=== PATIENT | female | born 1945 | race Caucasian/White ===

== ENCOUNTER → 2017-05-06 | Outpatient (CLI) | payer OTHER ==
[~2017-05-06] MED LIST: CITA40TA4 PO; CLON0.5T3 PO; LAMO200T38 PO; ZNTT/150 PO
--- NOTE | 2017-05-06 16:02 | MAMMOGRAPHY REPORT ---
BILATERAL DIGITAL SCREENING MAMMOGRAM WITH CAD: 05/06/2017 CLINICAL HISTORY: Routine screening. Patient has no complaints. TECHNIQUE: Current study was also evaluated with a Computer Aided Detection (CAD) system. Bilateral CC and MLO views were obtained. COMPARISON: Comparison is made to exams dated: 05/02/2016 mammogram, 04/30/2015 mammogram, 04/27/2014 m ammogram, 04/25/2013 mammogram, 04/23/2012 mammogram, and 04/22/2011 mammogram - [facility] nter. BREAST COMPOSITION: There are scattered areas of fibroglandular density in both breasts. FINDINGS: No suspicious masses, calcifications, or areas of architectural distortion are noted in ei ther breast. There has been no significant interval change compared to prior exams. Scattered bilate ral benign-appearing calcifications are not significantly changed. A biopsy marker clip is again not ed in the left anterior breast. IMPRESSION: ACR BI-RADS CATEGORY 2: BENIGN There is no mammographic evidence of malignancy. A 1 year screening mammogram is recommended. The pa tient will receive written notification of the results. Approximately 10% of breast cancers are not detected with mammography. A negative mammographic report should not delay biopsy if a clinically suggestive mass is present. Nely Bird M.D. ah/:05/06/2017 15:14:05 Production Support Analyst: Nuzhat JUAREZ(Olive)(Aubrey)(BD), [facility] letter sent: Normal 1/2 BI-RADS Code: ACR BI-RADS Category 2: Benign
== END | disposition home or self-care (01) ==
LOC: C.MAMM 11:17
PROVIDERS: ATTEND Family Medicine
DX: Z12.31 Encounter for screening mammogram for malignant neoplasm of breast (principal)

== ENCOUNTER 2017-09-03 19:11 | Emergency (ER) | payer OTHER ==
[~2017-09-03] VITALS: Ht 170.2 cm; Wt 78.8 kg
[~2017-09-03 19:11] MED LIST changes: +LAMO200T35 PO; -LAMO200T38 PO
[2017-09-03 19:15] VITALS: TEMP 36.6; Ht 170.2 cm; Wt 78.8 kg
[2017-09-03] MEDS ORDERED: SODIUM CHLORIDE 0.9% 1000ML 1,000 ML IV STA (19:34)
[2017-09-03] MEDS ORDERED: DiphenhydrAMINE HCL 50 MG/ML VIAL IV STA (19:34)
[2017-09-03] MEDS ORDERED: METOCLOPRAMIDE HCL INJ 5 MG/ML 2 ML VIAL IV STA (19:34)
[2017-09-03 19:40] VITALS: O2SAT 96
--- NOTE | 2017-09-03 19:54 | DIAGNOSTIC IMAGING REPORT ---
CHEST ONE VIEW PORTABLE HISTORY: Atypical CHEST PAIN COMPARISON: Chest 08/02/2016. FINDINGS: Mild elevation the left hemidiaphragm. The lungs are clear. The heart is normal in size. No pleural effusions. No pneumothorax. Lumbar spinal fusion hardware is again noted. IMPRESSION: No acute processes within the chest. Mild elevation of the left hemidiaphragm. Electronically signed by: Gutierrez Anderson M.D. 09/03/2017 7:53 PM Dictated Date/Time: 09/03/2017 7:52 PM
[2017-09-03 19:56] LABS: COMPLETE YES; HEMATOCRIT 42.3 % (37-47); LYMPH % 33.3 %; LYMPH ABS # 2.05 K/uL (1.2-3.4); MEAN CELL VOLUME 96.4 fL (80-100); MEAN CORPUSCULAR HEMOGLOBIN 32.1 pg (25-34); MEAN CORPUSCULAR HGB CONC 33.3 g/dl (32-36); MEAN PLATELET VOLUME 9.5 fL (7.4-10.4); MONO % 5.7 %; PLATELET COUNT 207 K/uL (130-400); RED BLOOD COUNT 4.39 M/uL (4.2-5.4); WHITE BLOOD COUNT 6.16 K/uL (4.8-10.8)
--- NOTE | 2017-09-03 20:04 | EMERGENCY ROOM VISIT NOTE ---
History Report prepared by Claudia: Deirdre Tinajero Under the Supervision of: Dr. Chadd Ponce M.D. First contact with patient: 19:20 Chief Complaint: STROKE SYMPTOMS Stated Complaint: HEADACHE,NUMB FACE History of Present Illness The patient is a 72 year old female who presents to the Emergency Room with complaints of intermittent headaches starting 2 weeks ago. The headache started gradually and has been coming and going. Over the past week, it has been more persistent. She had some relief yesterday with Tylenol, but today Tylenol has not been helping. She also has some numbness in her face. She spoke with her doctor today and was sent to the ED for the facial numbness. The patient has had headaches in the past, but she does not have a diagnosis of migraines. She reports being sensitive to light, sound, and touch. She did not have any blurry vision today, but she has had some blurry vision before. She denies any nausea, vomiting, weakness, trouble walking, neck pain, abdominal pain, fever, cough, congestion, urinary symptoms, or diarrhea. She is not on any blood thinners. Source of History: patient Onset: 2 weeks ago Position: head Quality: ache Timing: intermittent Modifying Factors (Relieving): tylenol Associated Symptoms: + numbness, No fevers, No cough, No neck pain, No nausea, No vomiting, No abdominal pain, No diarrhea, No urinary symptoms, No weakness Note: Pt reports sensitivity to light, sound, and touch. Pt denies trouble walking, congestion. Review of Systems See HPI for pertinent positives and negatives. A total of ten systems were reviewed and were otherwise negative. Past Medical & Surgical Medical Problems: (1) Anxiety (2) Cerda esophagus (3) Depression (4) GERD (gastroesophageal reflux disease) (5) h/o gastroparesis (6) h/o H pylori infection (7) Intractable low back pain (8) Lumbar stenosis with neurogenic claudication (9) PE (pulmonary embolism) (10) Seizure Surgical Problems: (1) H/O Back Surgery (2) H/O esophagogastroduodenoscopy (3) H/O vein stripping (4) H/O: hysterectomy Family History Cancer MOTHER (Liver, Lung) SISTER (Breast) BROTHER (Eye Ca) SISTER (Ovarian) Hypertension Hypertrophic cardiomyopathy SISTER Social History Smoking Status: Never Smoker Alcohol Use: none Drug Use: none Marital Status: Housing Status: lives with significant other Occupation Status: retired Current/Historical Medications Scheduled Citalopram (Citalopram Hydrobromide), 20 MG PO QAM Cyanocobalamin (Vitamin B12), 1,000 MCG PO QAM Lactobacillus (Probiotic), 1 CAP PO HS Lamotrigine (Lamictal), 300 MG PO BID Multivitamin (Multivitamin), 1 TAB PO QAM Ranitidine (Zantac), 150 MG PO BID Scheduled PRN Clonazepam (Klonopin), 0.5 MG PO TID PRN for Anxiety/Agitation Allergies Coded Allergies: Sulfa Antibiotics (Verified Allergy, Intermediate, HIVES, 09/03/17) Phenazopyridine (Verified Allergy, Unknown, pruritis, 09/03/17) per gmg. Domperidone (Verified Adverse Reaction, Mild, OFF BALANCE, 09/03/17) Metoclopramide (Verified Adverse Reaction, Mild, OFF BALANCE, 09/03/17) Physical Exam Vital Signs Date Time Temp Pulse Resp B/P (MAP) Pulse Ox O2 Delivery O2 Flow Rate FiO2 09/03/17 23:02 60 18 133/84 98 09/03/17 21:05 57 18 141/79 97 Room Air 09/03/17 20:00 70 18 159/88 96 Room Air 09/03/17 19:40 96 Room Air 09/03/17 19:30 80 09/03/17 19:15 36.6 64 18 175/90 97 Room Air Physical Exam GENERAL: Awake, alert, uncomfortable-appearing, in no acute distress HENT: Normocephalic, atraumatic. Dry mucous membranes. EYES: Normal conjunctiva. Sclera non-icteric. NECK: Supple. No nuchal rigidity. FROM. No JVD. RESPIRATORY: Clear to auscultation. CARDIAC: Regular rate, normal rhythm. Extremities warm and well perfused. Pulses equal. ABDOMEN: Soft, non-distended. No tenderness to palpation. No rebound or guarding. No masses. RECTAL: Deferred. MUSCULOSKELETAL: Chest examination reveals no tenderness. The back is symmetrical on inspection without obvious abnormality. There is no CVA tenderness to palpation. No joint edema. LOWER EXTREMITIES: Calves are equal size bilaterally and non-tender. No edema. No discoloration. NEURO: Normal sensorium. No sensory or motor deficits noted. Normal cerebellar function with [id number], alternating palms, [id number] SKIN: No rash or jaundice noted. Medical Decision & Procedures ER Provider Diagnostic Interpretation: Radiology results as stated below per my review and radiologist interpretation: CHEST ONE VIEW PORTABLE HISTORY: Atypical CHEST PAIN COMPARISON: Chest 08/02/2016. FINDINGS: Mild elevation the left hemidiaphragm. The lungs are clear. The heart is normal in size. No pleural effusions. No pneumothorax. Lumbar spinal fusion hardware is again noted. IMPRESSION: No acute processes within the chest. Mild elevation of the left hemidiaphragm. Electronically signed by: Gutierrez Anderson M.D. 09/03/2017 7:53 PM Dictated Date/Time: 09/03/2017 7:[address]AST CT DOSE: 687.98 mGy.cm HISTORY: Headache. TECHNIQUE: Multiaxial CT images of the head were performed without the use of intravenous contrast. Automated exposure control was utilized for this study. A dose lowering technique was utilized adhering to the principles of ALARA. Comparison: Head CT 08/08/2015. Findings: The paranasal sinuses and mastoid air cells are clear. The calvarium and skull base are intact. There is no mass, hematoma, midline shift, acute infarct. White matter hypodensity is nonspecific but suggestive of microvascular ischemic change. The ventricles and sulci demonstrate mild age-related involutional changes. Impression: No significant change compared to the prior study. No acute intracranial abnormality. Electronically signed by: Gutierrez Anderson M.D. 09/03/2017 8:36 PM Dictated Date/Time: 09/03/2017 8:32 PM Laboratory Results 09/03/17 19:40 Red Blood Count 4.39, Mean Corpuscular Volume 96.4, Mean Corpuscular Hemoglobin 32.1, Mean Corpuscular Hemoglobin Concent 33.3, Mean Platelet Volume 9.5, Neutrophils (%) (Auto) 61.0, Lymphocytes (%) (Auto) 33.3, Monocytes (%) (Auto) 5.7, Eosinophils (%) (Auto) 0.0, Basophils (%) (Auto) 0.0, Neutrophils # (Auto) 3.76, Lymphocytes # (Auto) 2.05, Monocytes # (Auto) 0.35, Eosinophils # (Auto) 0.00, Basophils # (Auto) 0.00 09/03/17 19:40 Test 09/03/17 19:40 09/03/17 22:20 White Blood Count 6.16 K/uL (4.8-10.8) Red Blood Count 4.39 M/uL (4.2-5.4) Hemoglobin 14.1 g/dL (12.0-16.0) Hematocrit 42.3 % (37-47) Mean Corpuscular Volume 96.4 fL (80-100) Mean Corpuscular Hemoglobin 32.1 pg (25-34) Mean Corpuscular Hemoglobin Concent 33.3 g/dl (32-36) Platelet Count 207 K/uL (130-400) Mean Platelet Volume 9.5 fL (7.4-10.4) Neutrophils (%) (Auto) 61.0 % Lymphocytes (%) (Auto) 33.3 % Monocytes (%) (Auto) 5.7 % Eosinophils (%) (Auto) 0.0 % Basophils (%) (Auto) 0.0 % Neutrophils # (Auto) 3.76 K/uL (1.4-6.5) Lymphocytes # (Auto) 2.05 K/uL (1.2-3.4) Monocytes # (Auto) 0.35 K/uL (0.11-0.59) Eosinophils # (Auto) 0.00 K/uL (0-0.5) Basophils # (Auto) 0.00 K/uL (0-0.2) RDW Standard Deviation 46.4 fL (36.4-46.3) RDW Coefficient of Variation 13.3 % (11.5-14.5) Immature Granulocyte % (Auto) 0.0 % Immature Granulocyte # (Auto) 0.00 K/uL (0.00-0.02) Anion Gap 4.0 mmol/L (3-11) Est Creatinine Clear Calc Drug Dose 64.1 ml/min Estimated GFR () 77.7 Estimated GFR (Non- 67.0 BUN/Creatinine Ratio 17.1 (10-20) Calcium Level 9.9 mg/dl (8.5-10.1) Total Bilirubin 0.4 mg/dl (0.2-1) Direct Bilirubin < 0.1 mg/dl (0-0.2) Aspartate Amino Transf (AST/SGOT) 13 U/L (15-37) Alanine Aminotransferase (ALT/SGPT) 21 U/L (12-78) Alkaline Phosphatase 76 U/L (45-117) Troponin I < 0.015 ng/ml (0-0.045) Total Protein 7.8 gm/dl (6.4-8.2) Albumin 4.1 gm/dl (3.4-5.0) Lipase 91 U/L (73-393) Urine Color YELLOW Urine Appearance CLEAR (CLEAR) Urine pH 6.5 (4.5-7.5) Urine Specific [place] 1.008 (1.000-1.030) Urine Protein NEG (NEG) Urine Glucose (UA) NEG (NEG) Urine Ketones NEG (NEG) Urine Occult Blood NEG (NEG) Urine Nitrite NEG (NEG) Urine Bilirubin NEG (NEG) Urine Urobilinogen NEG (NEG) Urine Leukocyte Esterase TRACE (NEG) Urine WBC (Auto) 1-5 /hpf (0-5) Urine RBC (Auto) 0-4 /hpf (0-4) Urine Hyaline Casts (Auto) 0 /lpf (0-5) Urine Epithelial Cells (Auto) 5-10 /lpf (0-5) Urine Bacteria (Auto) NEG (NEG) Laboratory results reviewed by me Medications Administered Medications (Trade) Dose Ordered Sig/Geovanny Route Start Time Stop Time Status Last Admin Dose Admin Sodium Chloride 1,000 ml @ 999 mls/hr Q1H1M STAT IV 09/03/17 19:34 09/03/17 20:34 DC 09/03/17 19:58 999 MLS/HR Metoclopramide HCl (Reglan Inj) 10 mg NOW STAT IV 09/03/17 19:34 09/03/17 19:39 DC 09/03/17 19:58 10 MG Diphenhydramine HCl (Benadryl Inj) 25 mg NOW STAT IV 09/03/17 19:34 09/03/17 19:39 DC 09/03/17 19:52 25 MG Dexamethasone Sodium Phosphate (Dexamethasone Inj Pf) 10 mg NOW ONCE IV 09/03/17 21:30 09/03/17 21:31 DC 09/03/17 22:16 10 MG ECG Indication: other Rate (beats per minute): 55 Rhythm: sinus bradycardia Findings: no acute ischemic change, other (normal axis) ED Course 1932: The patient was evaluated in room A4B. A complete history and physical exam was performed. 2207: I reevaluated the patient. She is feeling better. Discussed results and discharge instructions: She verbalized understanding and agreement. The patient is ready for discharge. Medical Decision I reviewed the patient's past medical history, medications, and the nursing notes as described above. Differential diagnosis: migraine headache, tension headache, ICH, dehydration, electrolyte abnormality, UTI, pneumonia. The patient is a 72-year-old woman with a past medical history of recurrent headaches believed to be migraines presenting to department with intermittent migraine today per history of present illness. I'll the patient is uncomfortable appearing but in no acute distress, afebrile stable vital signs. She is neurologically intact including normal cerebellar function with finger-to -nose, alternating palms, [id number]. Labs unremarkable. CXR negative. CT head negative. Patient given migraine cocktail with significant improvement in her symptoms are still residual headache. Patient was additionally given a dose of dexamethasone for additional migraine relief. Patient has a neurology appointment for September 23 for recurrent headaches. Findings and plan for follow-up reviewed with patient. Patient agreeable and d/c'd per discharge instructions. Medication Reconcilliation Current Medication List: was personally reviewed by me Blood Pressure Screening Patient's blood pressure: Elevated blood pressure Blood pressure disposition: Elevated BP felt to be situational Impression Primary Impression: Migraine headache Scribe Attestation The scribe's documentation has been prepared under my direction and personally reviewed by me in its entirety. I confirm that the note above accurately reflects all work, treatment, procedures, and medical decision making performed by me. Departure Information Dispostion Home / Self-Care Referrals No Doctor, Assigned (PCP) Patient Instructions ED Headache Migraine, My [facility] Additional Instructions Please follow up with your primary care physician in the next 1-3 days as well as with your neurologist as scheduled for re-evaluation. Your symptoms are most likely due to a migraine headache. Otherwise, your exam, EKG, chest xray, CT scan of your head, and lab results did not show signs of an emergent condition at this time. Drink plenty of fluids to ensure hydration. Acetaminophen or Ibuprofen for pain as needed. Return to the emergency department for worsening symptoms as described in the accompanying instructions.
[2017-09-03] MEDS ORDERED: CLX20 PO (20:06)
[2017-09-03] MEDS ORDERED: CYAN100020 PO (20:07)
[2017-09-03] MEDS ORDERED: MULT-506 PO (20:07)
[2017-09-03] MEDS ORDERED: LACT1CAP6 PO (20:07)
[2017-09-03 20:13] LABS: ALT/SGPT 21 U/L (12-78); AST/SGOT 13 U/L (15-37); BLOOD UREA NITROGEN 15 mg/dl (7-18); BUN/CREATININE RATIO 17.1 (10-20); CALCIUM 9.9 mg/dl (8.5-10.1); CARBON DIOXIDE 28 mmol/L (21-32); CHLORIDE 105 mmol/L (98-107); CREATININE 0.87 mg/dl (0.60-1.20); GLUCOSE 97 mg/dl (70-99); POTASSIUM 3.8 mmol/L (3.5-5.1); SODIUM 137 mmol/L (136-145)
[2017-09-03 20:18] LABS: ALKALINE PHOSPHATASE 76 U/L (45-117)
--- NOTE | 2017-09-03 20:37 | DIAGNOSTIC IMAGING REPORT ---
HEAD CT NONCONTRAST CT DOSE: 687.98 mGy.cm HISTORY: Headache. TECHNIQUE: Multiaxial CT images of the head were performed without the use of intravenous contrast. Automated exposure control was utilized for this study. A dose lowering technique was utilized adhering to the principles of ALARA. Comparison: Head CT 08/08/2015. Findings: The paranasal sinuses and mastoid air cells are clear. The calvarium and skull base are intact. There is no mass, hematoma, midline shift, acute infarct. White matter hypodensity is nonspecific but suggestive of microvascular ischemic change. The ventricles and sulci demonstrate mild age-related involutional changes. Impression: No significant change compared to the prior study. No acute intracranial abnormality. Electronically signed by: Gutierrez Anderson M.D. 09/03/2017 8:36 PM Dictated Date/Time: 09/03/2017 8:32 PM
[2017-09-03] MEDS ORDERED: DEXAMETHASONE **PF** INJ 10 MG/ML VIAL IV ONE (21:30)
[2017-09-03 22:36] LABS: URINE APPEARANCE CLEAR (CLEAR); URINE BILIRUBIN NEG (NEG); URINE COLOR YELLOW; URINE NITRITE NEG (NEG); URINE PH 6.5 (4.5-7.5); URINE SPECIFIC GRAVITY 1.008 (1.000-1.030); UROBILINOGEN NEG (NEG); ZZUR CULT IF INDIC CLEAN CATCH NO
[2017-09-03 22:37] LABS: MANUAL MICROSCOPIC REQUIRED? NO; REVIEW REQ? NO
[2017-09-03 23:02] VITALS: BP 133/84; PULSE 60; O2SAT 98
== END 2017-09-03 23:04 | disposition home or self-care (01) ==
LOC: C.EDB 19:12 → C.EDA 23:04
DX: G43.909 Migraine, unspecified, not intractable, without status migrainosus (principal); F41.9 Anxiety disorder, unspecified; F32.9 Major depressive disorder, single episode, unspecified; K21.9 Gastro-esophageal reflux disease without esophagitis; K31.84 Gastroparesis; M48.062 Spinal stenosis, lumbar region with neurogenic claudication; R56.9 Unspecified convulsions; Z86.711 Personal history of pulmonary embolism; Z80.0 Family history of malignant neoplasm of digestive organs; Z80.1 Family history of malignant neoplasm of trachea, bronchus and lung; Z80.3 Family history of malignant neoplasm of breast; Z80.8 Family history of malignant neoplasm of other organs or systems; Z80.41 Family history of malignant neoplasm of ovary; Z82.49 Family history of ischemic heart disease and other diseases of the circulatory system

== ENCOUNTER 2017-09-07 05:01 | Emergency (ER) | payer OTHER ==
[~2017-09-07] VITALS: Ht 170.2 cm; Wt 79.3 kg
[~2017-09-07 05:01] MED LIST changes: -CITA40TA4 PO; +CLX20 PO; +CYAN100020 PO; +LACT1CAP6 PO; +MULT-506 PO
[2017-09-07 05:04] VITALS: TEMP 36.3; Ht 170.2 cm; Wt 79.3 kg
[2017-09-07] MEDS ORDERED: METOCLOPRAMIDE HCL INJ 5 MG/ML 2 ML VIAL IV STA (05:16)
[2017-09-07] MEDS ORDERED: DiphenhydrAMINE HCL 50 MG/ML VIAL IV STA (05:16)
[2017-09-07] MEDS ORDERED: KETOROLAC TROMETHAMINE 30 MG/ML VIAL IV STA (05:16)
[2017-09-07] MEDS ORDERED: PRED10TA PO (05:31)
[2017-09-07 05:39] LABS: COMPLETE YES; HEMATOCRIT 41.2 % (37-47); IG% 0.1 %; LYMPH % 29.5 %; LYMPH ABS # 2.84 K/uL (1.2-3.4); MEAN CELL VOLUME 94.9 fL (80-100); MEAN CORPUSCULAR HEMOGLOBIN 32.3 pg (25-34); MEAN PLATELET VOLUME 9.7 fL (7.4-10.4); NEUT % 64.4 %; PLATELET COUNT 235 K/uL (130-400); RED BLOOD COUNT 4.34 M/uL (4.2-5.4); WHITE BLOOD COUNT 9.62 K/uL (4.8-10.8)
[2017-09-07 05:56] LABS: BUN/CREATININE RATIO 21.1 (10-20); CALCIUM 10.1 mg/dl (8.5-10.1); CREATININE 0.79 mg/dl (0.60-1.20); POTASSIUM 3.6 mmol/L (3.5-5.1)
[2017-09-07 06:01] VITALS: BP 130/80; PULSE 51; O2SAT 93
--- NOTE | 2017-09-07 06:02 | EMERGENCY ROOM VISIT NOTE ---
History First contact with patient: 05:16 Chief Complaint: HEADACHE Stated Complaint: MIGRAINE History of Present Illness The patient is a 72 year old female who presents to the Emergency Room with complaints of migraine for the past day described as throbbing, ranging in severity currently 8 out of 10 throughout the frontal region similar to prior. Nothing makes it better or worse. Headache was slow in onset. Patient's been under a lot of stress lately with her brother being sick. She states when she is stressed, this triggers for migraine. She has appointment on September [address] Nava which is her neurologist. She is currently on prednisone taper pack. She has had normal imaging in the brain in the past. Patient denies chest pain, dyspnea, fever, chills, vomiting, diarrhea, neck stiffness, sore throat, localized weakness, cold symptoms, vision problems. No other complaints for patient. Review of Systems See HPI for pertinent positives & negatives. A total of 10 systems reviewed and were otherwise negative. Past Medical/Surgical History Medical Problems: (1) Anxiety (2) Cerda esophagus (3) Depression (4) GERD (gastroesophageal reflux disease) (5) h/o gastroparesis (6) h/o H pylori infection (7) Intractable low back pain (8) Lumbar stenosis with neurogenic claudication (9) PE (pulmonary embolism) (10) Seizure Surgical Problems: (1) H/O Back Surgery (2) H/O esophagogastroduodenoscopy (3) H/O vein stripping (4) H/O: hysterectomy Family History Cancer MOTHER (Liver, Lung) SISTER (Breast) BROTHER (Eye Ca) SISTER (Ovarian) Hypertension Hypertrophic cardiomyopathy SISTER Social History Smoking Status: Never Smoker Alcohol Use: none Drug Use: none Marital Status: Housing Status: lives with significant other Occupation Status: retired Current/Historical Medications Scheduled Citalopram (Citalopram Hydrobromide), 20 MG PO QAM Cyanocobalamin (Vitamin B12), 1,000 MCG PO QAM Lactobacillus (Probiotic), 1 CAP PO HS Lamotrigine (Lamictal), 300 MG PO BID Multivitamin (Multivitamin), 1 TAB PO QAM Prednisone (Prednisone), 10 MG PO DIRECTED Ranitidine (Zantac), 150 MG PO BID Scheduled PRN Clonazepam (Klonopin), 0.5 MG PO TID PRN for Anxiety/Agitation Physical Exam Vital Signs Date Time Temp Pulse Resp B/P (MAP) Pulse Ox O2 Delivery O2 Flow Rate FiO2 09/07/17 05:04 36.3 64 20 159/82 97 Room Air Physical Exam VITALS: Vitals are noted on the nurse's note and reviewed by myself. Vital signs hypertensive GENERAL: Pleasant female who appears upset, in no acute distress, nondiaphoretic , well-developed well-nourished. SKIN: The skin was without rashes, erythema, edema, or bruising. There is no tenting of the skin. Capillary reflex less than 2 seconds. HEAD: Normocephalic atraumatic. EARS: External auditory canals clear, tympanic membranes pearly gonzales without erythema or effusion bilaterally. EYES: Pupils equal round and reactive to light and accommodation. Conjunctivae without injection, sclerae without icterus. Extraocular movements intact. NOSE: Patent, turbinates without inflammation or discharge. No sinus tenderness. MOUTH: Mucous membranes moist. Pharynx without erythema or exudate. Uvula midline. Airway patent. Tongue does not deviate. NECK: Supple without nuchal rigidity. No lymphadenopathy. No thyromegaly. Cervical spine is nontender. No JVD. HEART: Regular rate and rhythm LUNGS: Clear to auscultation bilaterally without wheezes, rales or rhonchi. No dullness to percussion. No retractions or accessory muscle use. ABDOMEN: Positive bowel sounds x 4. Normal tympanic percussion. Soft, nontender, without masses or organomegaly. Arrington sign negative. No guarding or rebound tenderness. MUSCULOSKELETAL: No muscle atrophy, erythema, or edema noted. NEURO: Patient was alert and oriented to person place and time. Normal sensation to light and sharp touch. No focal neurological deficits. Cranial nerves II through XII grossly intact. No pronator drift. Cerebellar exam intact. Medical Decision & Procedures Laboratory Results 09/07/17 05:30 Red Blood Count 4.34, Mean Corpuscular Volume 94.9, Mean Corpuscular Hemoglobin 32.3, Mean Corpuscular Hemoglobin Concent 34.0, Mean Platelet Volume 9.7, Neutrophils (%) (Auto) 64.4, Lymphocytes (%) (Auto) 29.5, Monocytes (%) (Auto) 6.0, Eosinophils (%) (Auto) 0.0, Basophils (%) (Auto) 0.0, Neutrophils # (Auto) 6.19, Lymphocytes # (Auto) 2.84, Monocytes # (Auto) 0.58, Eosinophils # (Auto) 0.00, Basophils # (Auto) 0.00 09/07/17 05:30 Test 09/07/17 05:30 White Blood Count 9.62 K/uL (4.8-10.8) Red Blood Count 4.34 M/uL (4.2-5.4) Hemoglobin 14.0 g/dL (12.0-16.0) Hematocrit 41.2 % (37-47) Mean Corpuscular Volume 94.9 fL (80-100) Mean Corpuscular Hemoglobin 32.3 pg (25-34) Mean Corpuscular Hemoglobin Concent 34.0 g/dl (32-36) Platelet Count 235 K/uL (130-400) Mean Platelet Volume 9.7 fL (7.4-10.4) Neutrophils (%) (Auto) 64.4 % Lymphocytes (%) (Auto) 29.5 % Monocytes (%) (Auto) 6.0 % Eosinophils (%) (Auto) 0.0 % Basophils (%) (Auto) 0.0 % Neutrophils # (Auto) 6.19 K/uL (1.4-6.5) Lymphocytes # (Auto) 2.84 K/uL (1.2-3.4) Monocytes # (Auto) 0.58 K/uL (0.11-0.59) Eosinophils # (Auto) 0.00 K/uL (0-0.5) Basophils # (Auto) 0.00 K/uL (0-0.2) RDW Standard Deviation 46.4 fL (36.4-46.3) RDW Coefficient of Variation 13.4 % (11.5-14.5) Immature Granulocyte % (Auto) 0.1 % Immature Granulocyte # (Auto) 0.01 K/uL (0.00-0.02) Anion Gap 7.0 mmol/L (3-11) Est Creatinine Clear Calc Drug Dose 70.8 ml/min Estimated GFR () 87.3 Estimated GFR (Non- 75.3 BUN/Creatinine Ratio 21.1 (10-20) Calcium Level 10.1 mg/dl (8.5-10.1) Medications Administered Medications (Trade) Dose Ordered Sig/Geovanny Route Start Time Stop Time Status Last Admin Dose Admin Ketorolac Tromethamine (Toradol Inj) 30 mg NOW STAT IV 09/07/17 05:16 09/07/17 05:17 DC 09/07/17 05:38 30 MG Diphenhydramine HCl (Benadryl Inj) 25 mg NOW STAT IV 09/07/17 05:16 09/07/17 05:17 DC 09/07/17 05:35 25 MG Metoclopramide HCl (Reglan Inj) 10 mg NOW STAT IV 09/07/17 05:16 09/07/17 05:17 DC 09/07/17 05:40 10 MG ED Course Prior records/ancillary studies reviewed. Additional history obtained from family Triage Nursing notes reviewed. The patient's history was concerning for headache. Differential diagnosis: Etiologies such as migraine headache, meningitis, sinusitis, CO exposure, ICH, SAH, infection, tumor, headache, sinus thrombosis, arterial dissection, as well as others were entertained. Physical examination findings: As above. Non-focal. ER treatment provided: Toradol, Reglan, Benadryl. Patient states she can take Reglan and took this the other day. On reassessment the patient felt better. Diagnostics interpreted by me: The labs revealed no leukocytosis. No worrisome electrolyte abnormality Imaging studies: [~ rep ct add3]] HEAD CT NONCONTRAST CT DOSE: 687.98 mGy.cm HISTORY: Headache. TECHNIQUE: Multiaxial CT images of the head were performed without the use of intravenous contrast. Automated exposure control was utilized for this study. A dose lowering technique was utilized adhering to the principles of ALARA. Comparison: Head CT 08/08/2015. Findings: The paranasal sinuses and mastoid air cells are clear. The calvarium and skull base are intact. There is no mass, hematoma, midline shift, acute infarct. White matter hypodensity is nonspecific but suggestive of microvascular ischemic change. The ventricles and sulci demonstrate mild age-related involutional changes. Impression: No significant change compared to the prior study. No acute intracranial abnormality. Electronically signed by: Gutierrez Anderson M.D. This appears to be consistent with migraine. Patient has a history of this and symptoms of similar. Patient is neurovascularly and neurologically intact. No signs of meningitis. Patient states when she is upset and stressed this triggers her migraines. Headache was slow in onset. Patient felt much better after being medicated as above. She is currently on a prednisone taper pack by the family care doctor. She is advised to rest, take medications as directed, and follow-up as scheduled with her neurologist or here in the ER sooner for headache, fevers, confusion, worsening signs or symptoms or as needed. By the evaluation outlined above emergent etiologies such as meningitis, sinusitis, CO exposure, ICH, SAH, infection, temporal arteritis, tumor, sinus thrombosis, arterial dissection, as well as others were deemed relatively unlikely. The pt informed about the findings as listed above. All questions were answered and pleased with the treatment. Return instructions were outlined and the patient was discharged in stable condition. Case reviewed by attending Referral: The patient was referred back to their primary care physician for follow-up in 2 to 3 days for a recheck of the current condition. The chart was completed utilizing [employer] Speech voice recognition software. Grammatical errors, random word insertions, pronoun errors, and incomplete sentences are an occassional consequence of this system due to software limitations, ambient noise, and hardware issues. Any formal questions or concerns about the content, text, or information contained within the body of this dictation should be directly addressed to the physician compliance assistant for clarification. Medical Decision As above Impression Primary Impression: Migraine Departure Information Dispostion Home / Self-Care Condition GOOD Referrals Adalberto Huynh M.D. (PCP) Patient Instructions My [facility] Additional Instructions DO NOT drive, drink alcohol, operate machinery, or perform dangerous activities today. You were given medications in the ER that can affect your ability to safely function or operate a vehicle. Rest today in a quiet, peaceful, dark environment and get a full 8-10 hrs of sleep tonight. Avoid loud noises, smoke/smoking, alcohol, bright lights, stress, or physical exertion today to minimize the chance the headache may return. Continue current medications. Ibuprofen(Motrin, Advil) may be used for fever or pain. Use 600mg every six hours as needed. Take with food. Avoid using more than 2400mg in a 24 hour period. Do not use 2400mg per day for more than three consecutive days without physician direction. Prolonged inappropriate use can lead to stomach upset or ulcers. (AND/OR) Acetaminophen(Tylenol) may be used for fever or pain. Use 1000mg every six hours as needed. Avoid using more than 3000mg in a 24 hour period. Return to the ER for passing out, worsening headache, vision problems, neck stiffness/pain, fevers, vomiting, worsening of your condition, or as needed. Follow up with your primary physician and/or a neurologist in 2-3 days for a recheck of your current condition. Problem Qualifiers Primary Impression: Migraine Migraine type: without aura Status migrainosus presence: without status migrainosus Intractability: not intractable Qualified Codes: G43.009 - Migraine without aura, not intractable, without status migrainosus
--- NOTE | 2017-09-07 06:15 | EMERGENCY ROOM VISIT NOTE ---
ED Visit Note First contact with patient: 05:16 I have personally evaluated and examined this patient. I agree with assessment and plan of Alciia Ho PA-C. Long history of migraine like headaches worsened recently by anxiety and having thought about side effects of her medications. Feeling better with treatment here. No evidence SAH/ICH nor meningitis by history/exam nor dissection risks.
== END 2017-09-07 06:17 | disposition home or self-care (01) ==
LOC: C.EDB 05:02
DX: G43.909 Migraine, unspecified, not intractable, without status migrainosus (principal); F41.9 Anxiety disorder, unspecified; F32.9 Major depressive disorder, single episode, unspecified; K21.9 Gastro-esophageal reflux disease without esophagitis; K31.84 Gastroparesis; M48.061 Spinal stenosis, lumbar region without neurogenic claudication; R56.9 Unspecified convulsions; Z80.0 Family history of malignant neoplasm of digestive organs; Z80.1 Family history of malignant neoplasm of trachea, bronchus and lung; Z80.3 Family history of malignant neoplasm of breast; Z80.8 Family history of malignant neoplasm of other organs or systems; Z80.41 Family history of malignant neoplasm of ovary; Z82.49 Family history of ischemic heart disease and other diseases of the circulatory system

== ENCOUNTER → 2018-05-07 | Outpatient (CLI) | payer OTHER ==
[~2018-05-07] MED LIST changes: -CLON0.5T3 PO; +KLN/5 PO; +PRED10TA PO; +RANI150T85 PO; -ZNTT/150 PO
--- NOTE | 2018-05-10 13:56 | MAMMOGRAPHY REPORT ---
BILATERAL DIGITAL SCREENING MAMMOGRAM TOMOSYNTHESIS WITH CAD: 05/07/2018 CLINICAL HISTORY: Routine screening. Patient has no complaints. TECHNIQUE: Breast tomosynthesis in addition to standard 2D mammography was performed. Current study w as also evaluated with a Computer Aided Detection (CAD) system. COMPARISON: Comparison is made to exams dated: 05/06/2017 mammogram, 05/02/2016 mammogram, 04/30/2015 m ammogram, 04/25/2013 mammogram, 04/23/2012 mammogram, and 04/18/2010 mammogram - [facility] nter. BREAST COMPOSITION: There are scattered areas of fibroglandular density in both breasts. FINDINGS: No suspicious masses, calcifications, or areas of architectural distortion are noted in either breast . There has been no significant interval change compared to prior exams. Bilateral asymmetries and s cattered bilateral benign-appearing calcifications are not significantly changed. A biopsy clip is a gain noted within the left anterior breast. IMPRESSION: ACR BI-RADS CATEGORY 2: BENIGN There is no mammographic evidence of malignancy. A 1 year screening mammogram is recommended.( 019) The patient will receive written notification of the results. Some breast cancers are not detected with mammography. A negative mammographic report should not michael y biopsy if a clinically suggestive mass is present. Nely Bird M.D. /:05/07/2018 15:52:43 Toddler Nanny: RT Carlee(Olive)(M), [facility] letter sent: Normal 1/2 BI-RADS Code: ACR BI-RADS Category 2: Benign
== END | disposition home or self-care (01) ==
LOC: C.MAMM 11:31
PROVIDERS: ATTEND Family Medicine
DX: Z12.31 Encounter for screening mammogram for malignant neoplasm of breast (principal)

== ENCOUNTER 2020-04-02 06:48 | Observation (INO) ==
[2020-04-02] MEDS ORDERED: NITROGLYCERIN SL 0.4 MG/TAB TAB SL STA (07:04)
--- NOTE | 2020-04-02 07:16 | XRay Report ---
XR chest 1V portable HISTORY: 74 years-old Female Chest Pain acute atypical chest pain COMPARISON: Chest radiographs 11/16/2019, chest CT 05/27/2019 TECHNIQUE: Portable AP view of the chest FINDINGS: Cardiomediastinal and hilar silhouettes are within normal limits. No pneumothorax, pleural effusion o r overt pulmonary edema. Unchanged mild left hemidiaphragm elevation with minimal left lung base opac ities suggestive of probable atelectasis. Bones appear grossly intact. Degenerative changes of the sh oulders and spine. Partially imaged lumbar spine fusion hardware. IMPRESSION: No acute process. ACT 112: Negative or not required by law. The above report was generated using voice recognition software. It may contain grammatical, syntax o r spelling errors. Electronically signed by: Nabeel Parsons M.D. 04/02/2020 7:15 AM
--- NOTE | 2020-04-02 07:24 | Emergency Department Note ---
History of Present Illness General Chief complaint: Chest Pain Stated complaint: CHEST PAIN Time Seen by Provider: 04/02/20 06:58 Source: patient, RN notes reviewed and old records reviewed Mode of arrival: ambulatory Limitations: no limitations History of Present Illness Provider complaint: chest pain Onset (ago): hour(s) 2 Location: chest Radiation: extremity Severity: severe Pain Consistency: + constant Maximum Pain Intensity: 9 Current Pain Intensity: 9 Quality: + burning Relieved By: + none Exacerbated By: + movement Associated symptoms: + denies other symptoms; no cough, no diaphoresis, no fever/chills, no nausea/vomiting and no shortness of breath Treatments prior to arrival: none This is a 74-year-old female who presents the emergency department complaining of left-sided chest pain that radiates into her left arm. The patient reports the pain has been ongoing for the past 2 hours she reports changing position or exertion does not make the pain better or worse. She reports that she has not taken anything for the pain. She reports that this pain is similar to when she had a pulmonary embolus approximately 5 years ago. The patient reports she is no longer on blood thinners. She describes the pain as a burning sensation. Home Medications Home Medications Medication Instructions Recorded Confirmed Type citalopram 20 mg PO QAM 05/31/18 04/02/20 History clonazepam 0.5 mg PO BID PRN 05/31/18 04/02/20 History gabapentin 100 mg PO HS 05/31/18 04/02/20 History lamotrigine 400 mg PO BID 05/31/18 04/02/20 History meclizine 12.5 mg PO Q6H PRN 05/31/18 04/02/20 History multivitamin [Multiple Vitamins] 1 tab PO QAM 05/31/18 04/02/20 History aspirin [Aspirin Low Dose] 81 mg PO QAM 05/27/19 04/02/20 History cyanocobalamin (vitamin B-12) 1,000 mcg PO QAM 05/27/19 04/02/20 History buspirone 5 mg PO BID 04/02/20 04/02/20 History pantoprazole 20 mg PO BID 04/02/20 04/02/20 History Allergies Allergy/AdvReac Type Severity Reaction Status Date / Time Sulfa (Sulfonamide Allergy Intermediate HIVES Verified 04/02/20 07:30 Antibiotics) phenazopyridine Allergy Unknown pruritis Verified 04/02/20 07:30 domperidone AdvReac Mild OFF BALANCE Verified 04/02/20 07:30 metoclopramide AdvReac Mild OFF BALANCE Verified 04/02/20 07:30 Past Med/Surg History Medical History Anxiety (Chronic) Cerda esophagus (Chronic) Depression (Chronic) GERD (gastroesophageal reflux disease) (Chronic) Low back strain (Acute) Lumbar stenosis with neurogenic claudication PE (pulmonary embolism) (Resolved) "bilateral 2012, treated with Coumadin in past" Seizure (Chronic) On Lamictal"NO SEIZURES FOR YEARS AND YEARS" Temporomandibular joint disorder CLICKS BILAT Surgical History H/O colonoscopy H/O esophagogastroduodenoscopy (Chronic) H/O vein stripping (Chronic) History of hysterectomy TOTAL S/P cholecystectomy Family History Other Heart disease Ovarian cancer Social History Smoking Status: Never smoker Second Hand Exposure: No; Do You Dip or Chew Tobacco: No; Tobacco Cessation Education Requested by Patient: No Hx Alcohol Use: No Hx Substance Use: No Preferred Language: Maori Communication Ability: Effective Health Program Analyst Required: No Beliefs That Will Affect Care: None Current Living Situation: Spouse Other Information That Helps Us Care for You: No Feels Safe at Home: Yes Safety Concerns: Feels Safe At This Time Review of Systems A total of 10 systems reviewed and were otherwise negative Physical Exam Vital Signs Vital Signs - 24 hr 04/02/20 06:52 04/02/20 07:04 04/02/20 07:36 Temperature 37.0 C Temperature Source Oral Pulse Rate 82 Pulse Rate [Right Finger] Respiratory Rate 22 Respiratory Effort / Characteristics Non-Labored Spontaneous Respiratory Depth Normal Respiratory Pattern Regular Blood Pressure 162/80 H Blood Pressure [Left Arm] Blood Pressure Mean 107 Blood Pressure Mean [Left Arm] Blood Pressure Position Sitting Blood Pressure Position [Left Arm] Pulse Oximetry 91 94 93 Oxygen Delivery Method Room Air Room Air Room Air Oxygen Flow Rate Sepsis Recent Fever Within 48 Hours No Sepsis New/Unexplained Change in Mental Status No Sepsis Action Taken by Nursing No Action Required 04/02/20 07:58 04/02/20 08:00 04/02/20 08:47 Temperature Temperature Source Pulse Rate Pulse Rate [Right Finger] 62 Respiratory Rate 22 20 Respiratory Effort / Characteristics Non-Labored Spontaneous Non-Labored Spontaneous Respiratory Depth Normal Normal Respiratory Pattern Regular Blood Pressure Blood Pressure [Left Arm] 119/62 Blood Pressure Mean Blood Pressure Mean [Left Arm] 81 Blood Pressure Position Blood Pressure Position [Left Arm] Sitting Pulse Oximetry 88 L 96 96 Oxygen Delivery Method Room Air Nasal Cannula Nasal Cannula Oxygen Flow Rate 2 2 Sepsis Recent Fever Within 48 Hours Sepsis New/Unexplained Change in Mental Status Sepsis Action Taken by Nursing VITAL SIGNS - Vital signs and nursing notes were reviewed. GENERAL - 74-year-old female appearing stated age who is in no acute distress. Communicates well with provider and answers questions appropriately. SKIN - Without rashes. HEAD - NC/AT. EYES - PERRL with EOMI bilaterally. Sclera anicteric. Palpebral conjunctiva pink and moist with no injection noted. EARS - No deformities of external structures noted on gross examination bilaterally. No pain elicited with palpation of the tragus bilaterally. External auditory canals without discharge or otorrhea. Tympanic membranes pearly gonzales without retraction or bulging. No fluid or purulent material visualized behind the TM. Handle of malleus, umbo, cone of light, pars tensa/flaccid all easily visualized. NOSE - Midline and without cyanosis. No epistaxis or purulent drainage noted. Septum midline without deviation or septal hematoma noted. MOUTH/OROPHARYNX - Without perioral cyanosis. Buccal mucosa pink and moist and without leukoplakia. Tongue midline with equal elevation of palate bilaterally. No tonsillar hypertrophy, erythema, or exudates noted. dentition noted. NECK - Neck with FROM. Supple to palpation. lymphadenopathy noted. No nuchal rigidity. LUNGS - Chest wall symmetric without accessory muscle use, intercostals retra ctions, or central cyanosis. Normal vesicular breath sounds CTA B/L. No wheezes, rales, or rhonchi appreciated. CARDIAC - RRR with S1/S2. No murmur, rubs, or gallops appreciated. ABDOMEN - Abdominal contour without pulsations or visible masses. BS normoactive all four quadrants. No tenderness, palpable masses, hepatosplenomegaly, or ascites noted. EXTREMITIES - No clubbing or peripheral cyanosis. No pretibial edema present. +3/5 radial, posterior tibial, and dorsalis pedis pulses palpated throughout. +5/5 strength noted in UE/LE bilaterally. NEUROLOGIC - Cranial nerves II through XII grossly intact. Sensory intact to light touch throughout. Patellar reflexes +2/4. PSYCH - A&Ox3 and cooperates fully with examiner. Pt is very pleasant and interacts well with examiner. Course Administered Medications Acetaminophen (Tylenol) 650 mg PO Q4H PRN PRN Reason: Pain or Fever Stop: 05/02/20 11:07 Last Admin: 04/02/20 22:10 Dose: 650 mg Documented by: [id number] Buspirone HCl (Buspar) 5 mg PO BID [facility] Stop: 05/02/20 11:59 Last Admin: 04/02/20 20:50 Dose: 5 mg Documented by: [id number] Admin: 04/02/20 12:48 Dose: 5 mg Documented by: [id number] Citalopram Hydrobromide (Celexa) 20 mg PO QAM [facility] Stop: 05/02/20 11:29 Last Admin: 04/02/20 12:48 Dose: 20 mg Documented by: [id number] Clonazepam (Klonopin) 0.5 mg PO BID PRN PRN Reason: Anxiety Stop: 05/02/20 11:21 Last Admin: 04/02/20 22:10 Dose: 0.5 mg Documented by: [id number] Gabapentin (Neurontin) 100 mg PO HS [facility] Stop: 05/02/20 20:59 Last Admin: 04/02/20 20:50 Dose: 100 mg Documented by: [id number] Heparin Sodium (Porcine) (Heparin Sodium (Porcine)) 5,000 units SQ Q8 [facility] Stop: 05/02/20 13:59 Last Admin: 04/03/20 05:16 Dose: Not Given Documented by: [id number] Admin: 04/02/20 20:52 Dose: 5,000 units Documented by: [id number] Cosigned by: [id number] Admin: 04/02/20 13:39 Dose: 5,000 units Documented by: [id number] Cosigned by: [id number] Lamotrigine (Lamictal) 400 mg PO BID [facility] Stop: 05/02/20 11:29 Last Admin: 04/02/20 20:51 Dose: 400 mg Documented by: [id number] Admin: 04/02/20 13:02 Dose: 400 mg Documented by: [id number] Pantoprazole Sodium (Protonix) 40 mg PO BID ÁNGEL Stop: 05/02/20 11:29 Last Admin: 04/02/20 20:51 Dose: 40 mg Documented by: [id number] Admin: 04/02/20 13:02 Dose: 40 mg Documented by: [id number] Discontinued Medications Albuterol (Ventolin Hfa) 2 puffs INH NOW ONE Stop: 04/02/20 07:59 Last Admin: 04/02/20 08:13 Dose: 2 puffs Documented by: [id number] Magnesium Sulfate/Dextrose (Magnesium Sulfate / D5w) 1 gm in 100 mls @ 100 mls/hr IV NOW STA Stop: 04/02/20 09:09 Last Infusion: 04/02/20 09:29 Dose: 0 mls/hr Documented by: [id number] Admin: 04/02/20 08:18 Dose: 100 mls/hr Documented by: [id number] Ioversol (Optiray 320 125ml) 120 ml IV ONCE PRN PRN Reason: Interaction Checking Stop: 04/06/20 08:36 Last Admin: 04/02/20 08:37 Dose: 120 ml Documented by: [id number] Methylprednisolone (Solumedrol) 60 mg IV NOW STA Stop: 04/02/20 09:02 Last Admin: 04/02/20 09:05 Dose: 60 mg Documented by: [id number] Nitroglycerin (Nitrostat) 0.4 mg SL NOW STA Stop: 04/02/20 07:05 Last Admin: 04/02/20 07:34 Dose: 0.4 mg Documented by: [id number] Nitroglycerin (Nitro-Bid 2%) 1 inch EXT NOW STA Stop: 04/02/20 07:46 Last Admin: 04/02/20 07:54 Dose: 1 inch Documented by: [id number] Medical Decision Making Differential Diagnosis Cardiac ischemia, aortic dissection, pulmonary embolism, pneumothorax, pneumonia, pericarditis, myocarditis, esophageal rupture, GERD, cholecystitis, pancreatitis, musculoskeletal, as well as other pathologies. Medical Records Attestation: I reviewed the patient's medical records. Home Medications Current Medication List: was personally reviewed by me Laboratory Data Attestation: I reviewed the patient's lab results. Result diagrams: 04/02/20 07:30 04/02/20 07:30 Lab Results 04/02/20 04/02/20 04/02/20 Range/Units 07:30 07:30 07:30 WBC 5.33 (4.8-10.8) K/uL RBC 4.06 L (4.2-5.4) M/uL Hgb 13.3 (12.0-16.0) g/dL POC Hgb (12.0-16.0) g/dl Hct 39.3 (37-47) % POC Hct (37-47) % MCV 96.8 (80-100) fL MCH 32.8 (25-34) pg MCHC 33.8 (32-36) g/dL RDW Std Deviation 48.0 H (36.4-46.3) fL RDW Coeff of Bill 13.5 (11.5-14.5) % Plt Count 185 (130-400) K/uL MPV 9.4 (7.4-10.4) fL Immature Gran % (Auto) 0.2 % Neut % (Auto) 61.2 % Lymph % (Auto) 31.7 % Ada % (Auto) 6.9 % Eos % (Auto) 0.0 % Baso % (Auto) 0.0 % Neut # (Auto) 3.26 (1.4-6.5) K/uL Lymph # (Auto) 1.69 (1.2-3.4) K/uL Ada # (Auto) 0.37 (0.11-0.59) K/uL Eos # (Auto) 0.00 (0-0.5) K/uL Baso # (Auto) 0.00 (0-0.2) K/uL Immature Gran # (Auto) 0.01 (0.00-0.02) K/uL PT 10.3 (9.0-12.0) Seconds INR 1.0 (0.9-1.1) APTT 24.5 (21.0-31.0) Seconds PTT Ratio 0.9 POC Sodium (135-144) mmol/L Sodium 141 (136-145) mmol/L POC Potassium (3.3-5.0) mmol/L Potassium 3.8 (3.5-5.1) mmol/L POC Chloride (101-112) mmol/L Chloride 108 H (98-107) mmol/L Carbon Dioxide 27 (21-32) mmol/L POC Total CO2 (24-31) mmol/L Anion Gap 6.0 (3-11) POC Anion Gap (16-25) mmol/L POC BUN (7-18) mg/dl BUN 16 (7-18) mg/dl Creatinine 0.95 (0.6-1.2) mg/dl POC Creatinine (0.6-1.3) mg/dl Est Cr Clr Drug Dosing 55.8 ml/min Est GFR ( Amer) 68.9 Est GFR (Non-Af Amer) 59.4 BUN/Creatinine Ratio 17.3 (10-20) Glucose 91 (70-99) mg/dl POC Glucose (other) (70-99) mg/dl Calcium 9.5 (8.5-10.1) mg/dl POC Ioniz Calcium May (1.12-1.32) mmol/l Total Bilirubin 0.5 (0.2-1) mg/dl AST 14 L (15-37) U/L ALT 26 (12-78) U/L Alkaline Phosphatase 59 (45-117) U/L Total Creatine Kinase 77 (26-192) U/L CK-MB (CK-2) 1.3 (0.5-3.6) ng/ml CK/CKMB % Calc 1.7 (0-3.0) Troponin I < 0.015 (0-0.045) ng/ml Total Protein 7.3 (6.4-8.2) gm/dl Albumin 3.7 (3.4-5.0) gm/dl Globulin 3.6 (2.5-4.0) gm/dl Albumin/Globulin Ratio 1.0 (0.9-2) Lipase 85 (73-393) U/L 04/02/20 04/02/20 Range/Units 07:36 08:25 WBC (4.8-10.8) K/uL RBC (4.2-5.4) M/uL Hgb (12.0-16.0) g/dL POC Hgb 12.9 (12.0-16.0) g/dl Hct (37-47) % POC Hct 38 (37-47) % MCV (80-100) fL MCH (25-34) pg MCHC (32-36) g/dL RDW Std Deviation (36.4-46.3) fL RDW Coeff of Bill (11.5-14.5) % Plt Count (130-400) K/uL MPV (7.4-10.4) fL Immature Gran % (Auto) % Neut % (Auto) % Lymph % (Auto) % Ada % (Auto) % Eos % (Auto) % Baso % (Auto) % Neut # (Auto) (1.4-6.5) K/uL Lymph # (Auto) (1.2-3.4) K/uL Ada # (Auto) (0.11-0.59) K/uL Eos # (Auto) (0-0.5) K/uL Baso # (Auto) (0-0.2) K/uL Immature Gran # (Auto) (0.00-0.02) K/uL PT (9.0-12.0) Seconds INR (0.9-1.1) APTT (21.0-31.0) Seconds PTT Ratio POC Sodium 141 (135-144) mmol/L Sodium (136-145) mmol/L POC Potassium 3.8 (3.3-5.0) mmol/L Potassium (3.5-5.1) mmol/L POC Chloride 105 (101-112) mmol/L Chloride (98-107) mmol/L Carbon Dioxide (21-32) mmol/L POC Total CO2 25 (24-31) mmol/L Anion Gap (3-11) POC Anion Gap 16.0 (16-25) mmol/L POC BUN 18 (7-18) mg/dl BUN (7-18) mg/dl Creatinine (0.6-1.2) mg/dl POC Creatinine 0.9 (0.6-1.3) mg/dl Est Cr Clr Drug Dosing ml/min Est GFR ( Amer) Est GFR (Non-Af Amer) BUN/Creatinine Ratio (10-20) Glucose (70-99) mg/dl POC Glucose (other) 96 (70-99) mg/dl Calcium (8.5-10.1) mg/dl POC Ioniz Calcium May 1.28 (1.12-1.32) mmol/l Total Bilirubin (0.2-1) mg/dl AST (15-37) U/L ALT (12-78) U/L Alkaline Phosphatase (45-117) U/L Total Creatine Kinase (26-192) U/L CK-MB (CK-2) (0.5-3.6) ng/ml CK/CKMB % Calc (0-3.0) Troponin I < 0.015 (0-0.045) ng/ml Total Protein (6.4-8.2) gm/dl Albumin (3.4-5.0) gm/dl Globulin (2.5-4.0) gm/dl Albumin/Globulin Ratio (0.9-2) Lipase (73-393) U/L Imaging Data Radiologist's Impression: [facility], [place] [phone] XRay Report Patient: KRISTI VILLALOBOS Admit Date: 04/02/20 MR#: [id number] Address1: [address] [place] [address] Acct ID:[id number] Address2: Date: 1945 [facility] Zip: [place] [address] Age: 74 Location: ED Sex: F Room/Bed: Att Phy: Diagnosis: CHEST PAIN Tahmina Phy: Adalberto Huynh MD Service Date: 04/02/20 [facility] Phy: Interpreting Phy: Krystian Parsons Admit Phy: Ordering Phy: Ross George MD cc: ~ XR chest 1V portable HISTORY: 74 years-old Female Chest Pain acute atypical chest pain COMPARISON: Chest radiographs 11/16/2019, chest CT 05/27/2019 TECHNIQUE: Portable AP view of the chest FINDINGS: Cardiomediastinal and hilar silhouettes are within normal limits. No pneumothorax, pleural effusion or overt pulmonary edema. Unchanged mild left hemidiaphragm elevation with minimal left lung base opacities suggestive of probable atelectasis. Bones appear grossly intact. Degenerative changes of the shoulders and spine. Partially imaged lumbar spine fusion hardware. IMPRESSION: No acute process. ACT 112: Negative or not required by law. The above report was generated using voice recognition software. It may contain grammatical, syntax or spelling errors. Electronically signed by: Nabeel Parsons M.D. 04/02/2020 7:15 AM Dictated: 07/20/20 0714 Transcribed: 04/02/20713 ECG Data Attestation: I personally reviewed and interpreted this ECG as follows: Indication: chest pain Rate (beats per minute): 63 Rhythm: normal sinus Findings: no ST depression and no ST elevation Comparison ECG Date: from (11/16/2019) Change: no significant change Additional Comments: Repeat EKG at 750 shows normal sinus rhythm normal EKG no ST elevation or depression QTC is 432 ventricular rate is 61. MDM Narrative Patient was seen and evaluated as above in room C8. Review was performed of nursing notes and vital signs. I did review pertinent previous visits and patient history. After obtaining a thorough history and physical examination the above work up was performed. This is a 74-year-old female who presents emergency department complaining of chest pain. The patient is hypoxic on room air therefore the concern is that she has a PE. She was sent for CAT scan of the chest which does not show any evidence of a PE. The patient's chest pain was relieved by nitro and because she is requiring oxygen I did discuss the case with the hospitalist service who did agree to admit the patient. Serial EKGs and serial troponins were obtained here. Neither show any evidence of ischemia. An order was placed for continuous cardiac monitoring. The monitor shows a rate of 82 with Normal SInus rhythm. The patient was evaluated during the global COVID-19 pandemic, and that diagnosis was suspected/considered upon their initial presentation. Their evaluation, treatment and testing was consistent with current guidelines for patients who present with complaints or symptoms that may be related to COVID- 19. Impression & Plan Chest pain, Hypoxia Discharge Plan Visit Data *Final* Discharge Date/Time: 04/02/20 10:46 Chief Complaint: Chest Pain Stated Complaint: CHEST PAIN ED Provider: Ross George Discharge Problem: Chest pain, Hypoxia Patient Disposition: Admitted As Inpatient Discharge Instructions Interventions: ED Discharge Assessment Last Done: 04/02/20 10:46 Discharge Problem: Chest pain Qualifiers: Chest pain type: unspecified Qualified Code(s): R07.9 - Chest pain, unspecified
[2020-04-02 07:40] LABS: Hematocrit (blood only) 39.3 % (37-47); Hemoglobin 13.3 g/dL (12.0-16.0); Immature Granulocytes # (auto) 0.01 K/uL (0.00-0.02); Immature Granulocytes % (auto) 0.2 %; Lymphocytes # (auto) 1.69 K/uL (1.2-3.4); Lymphocytes % (auto) 31.7 %; Mean Corpuscular Hemoglobin 32.8 pg (25-34); Mean Corpuscular Hgb Conc 33.8 g/dL (32-36); Mean Corpuscular Volume 96.8 fL (80-100); Mean Platelet Volume 9.4 fL (7.4-10.4); Monocytes # (auto) 0.37 K/uL (0.11-0.59); Monocytes % (auto) 6.9 %; Neutrophils # (auto) 3.26 K/uL (1.4-6.5); Neutrophils % (auto) 61.2 %; Platelet Count 185 K/uL (130-400); RDW Coefficient of Variation 13.5 % (11.5-14.5); Red Blood Count 4.06 M/uL (4.2-5.4); White Blood Count 5.33 K/uL (4.8-10.8)
[2020-04-02] MEDS ORDERED: NITROGLYCERIN 2% OINTMENT 30GM TUBE EXT STA (07:45)
[2020-04-02 07:57] LABS: Alanine Aminotransferase 26 U/L (12-78); Albumin Level 3.7 gm/dl (3.4-5.0); Aspartate Aminotransferase 14 U/L (15-37); BUN Creatinine Ratio 17.3 (10-20); Blood Urea Nitrogen 16 mg/dl (7-18); Calcium 9.5 mg/dl (8.5-10.1); Carbon Dioxide 27 mmol/L (21-32); Chloride 108 mmol/L (98-107); Creatinine Clr Calc Pharmacy 55.8 ml/min; Est GFR (African American) 68.9; Est GFR (Non-African American) 59.4; Glucose 91 mg/dl (70-99); Lipase 85 U/L (73-393); Partial Thromboplastin Ratio 0.9; Partial Thromboplastin Time 24.5 Seconds (21.0-31.0); Potassium 3.8 mmol/L (3.5-5.1); Prothrombin Time 10.3 Seconds (9.0-12.0); Sodium 141 mmol/L (136-145)
[2020-04-02] MEDS ORDERED: ALBUTEROL HFA 8 GM INHALER INH ONE (07:58)
[2020-04-02 08:03] LABS: Alkaline Phosphatase 59 U/L (45-117); Bilirubin,Total 0.5 mg/dl (0.2-1); Creatine Kinase 77 U/L (26-192); Creatine Kinase MB 1.3 ng/ml (0.5-3.6); Globulin 3.6 gm/dl (2.5-4.0); Total Protein 7.3 gm/dl (6.4-8.2); Troponin I < 0.015 ng/ml (0-0.045)
[2020-04-02] MEDS ORDERED: MAGNESIUM SULFATE / D5W 1 GM/100 ML BAG IV STA (08:10)
[2020-04-02] MEDS ORDERED: OPTIRAY 320 125ml IV PRN (08:37)
--- NOTE | 2020-04-02 08:58 | CT Scan Report ---
CT angio chest PE protocol CT DOSE: 506.99 mGy.cm HISTORY: 74 years-old Female with PE. Acute chest pain with shortness of breath TECHNIQUE: Multiple CTA images of the chest were obtained after the intravenous administration of 120 ml Optiray 320. Coronal and sagittal MIPS were obtained from the axial data set and were submitted for review. All measurements were obtained according to NASCET criteria. A dose lowering technique w as utilized adhering to the principles of ALARA. COMPARISON: Chest radiograph of same day, chest CT 05/27/2019, CT abdomen and pelvis 06/02/2011, CTA ch est 10/09/2014 FINDINGS: CTA: Moderate cardiomegaly. No pericardial effusion. No thoracic aortic aneurysm or dissection. Mild mixed plaque of the aortic arch. Patency of the imaged great vessels. Mild descending thoracic aortic tort uosity. The pulmonary arterial tree is opacified to the level of the subsegmental branches. Minimal l inear filling defect is noted within segmental branches of the right lower lobe, image 121 series 4 w hich appears similar to the 2014 exam, possibly reflective of remote nonocclusive thrombus. No acute pulmonary emboli identified. CT CHEST: Unremarkable thyroid. No adenopathy. No pneumothorax, pleural effusion, overt pulmonary edema or airs pace consolidation typical for pneumonia. Mild linear subsegmental bibasilar atelectasis/pleural pare nchymal scarring. Linear calcifications are again noted within the posterior basal segment right lowe r lobe. There are a few scattered subpleural solid pulmonary nodules redemonstrated measuring up to a pproximately 5 mm which appear unchanged from the 05/27/2019 exam. Several of these nodules have sligh tly increased in size dating back to 2014. No acute process of the imaged upper abdomen. Soft tissues are unremarkable. Bones appear intact. Par tially imaged fusion hardware of the lumbar spine. IMPRESSION: 1. Cardiomegaly without evidence of acute pulmonary thromboembolic disease. 2. No pleural effusion or airspace consolidation typical for pneumonia. 3. There are a few subpleural solid pulmonary nodules redemonstrated measuring up to 5 mm which have slightly increased in size dating back to 2014 however suggest likely benign etiology. ACT 112: Negative or not required by law. The above report was generated using voice recognition software. It may contain grammatical, syntax o r spelling errors. Electronically signed by: Nabeel Parsons M.D. 04/02/2020 8:57 AM
[2020-04-02] MEDS ORDERED: methylPREDNISolone 125 MG/2 ML VIAL IV STA (09:01)
--- NOTE | 2020-04-02 09:44 | History & Physical Report ---
Date of Service April 02, 2020 Assessment & Plan (1) Acute respiratory failure with hypoxia: This is a 74yo F with a PMH of anxiety, depression, Cerda's esophagus, history of PE, CKD III and other medical problems listed below who presents with intermittent chest pain x 2 weeks and acute hypoxic respiratory failure. -Initially hypoxic at 88% on room air. Improved to 98% on 2 L nasal cannula -No oxygen requirement at home. No history of asthma or COPD -Initially given albuterol and IV Solu-Medrol in ED -Chest CTA without evidence of acute pulmonary thromboembolic disease, no pleural effusion or airspace consolidation typical for pneumonia. Presence of subpleural nodules slightly increased in size since 2015 but likely benign etiology -Wean oxygen as tolerated. No indication to continue albuterol inhaler or solu- medrol at this time (2) Chest pain: Atypical presentation, in setting of significant anxiety with associated SOB -ECG with normal sinus rhythm, initial troponin negative, history of normal dobutamine stress echo in January 2019 -Monitor on telemetry, trend troponin. Follows with Dr. Cortez in clinic. Routine cardiology consult (3) Anxiety: Worsening anxiety recently, has been requring more Klonopin than previously. Prescribed Buspar by PCP but has yet to start -Continue Celexa, starting Buspar today, Clonopin PRN. Patient counseled on use of benzodiazepines on PRN basis only (4) Seizure: Remote history of seizures 35 years ago -Follows with Eliz Mcwilliams PA-C of [facility] neuro -Continue Lamictal (5) Cerda esophagus: (6) GERD (gastroesophageal reflux disease): Continue PPI DVT Ppx: SQ heparin Code status: FULL PCP: Amina Dispo: Admitted to [facility]. Plan to return home once medically stable. Patient seen in collaboration with Dr. Cortez. Please see addendum. History of Present Illness Chief Complaint: chest pain, dyspnea Primary Care Provider: Adalberto Huynh MD This is a 74yo F with a PMH of anxiety, depression, Cerda's esophagus, history of PE, CKD III and other medical problems listed below who presents with intermittent chest pain x 2 weeks. Patient has been having intermittent aching, left-sided chest pain for the past 2 weeks and woke up with a more severe episode this morning. States that pain this morning felt similar to when she discovered she had a PE approximately 5 years ago, so she felt that it was necessary to come in for further evaluation. Chest pain mainly occurs both at rest and with exertion. Associated with some shortness of breath but denies any nausea, vomiting or presyncope. Pain resolved with sublingual nitroglycerin upon arrival. Was also found to be hypoxic at 88% on room air and is now saturating 98% on 2 L nasal cannula. Does not require home oxygen. Does endorse a significant amount of anxiety recently due to current events as well as being told she has kidney disease. Has been taking Klonopin more frequently and was recently prescribed BuSpar from PCP, but has not started it yet. Denies any fever, chills, lightheadedness, visual changes, cough, palpitations, wheezing, nausea, vomiting, abdominal pain, dysuria, diarrhea or constipation. Denies any personal history of heart disease. History of dobutamine stress echo in January 2019 with normal LV systolic function and EF of 60-65%. Allergies Allergy/AdvReac Type Severity Reaction Status Date / Time Sulfa (Sulfonamide Allergy Intermediate HIVES Verified 04/02/20 07:30 Antibiotics) phenazopyridine Allergy Unknown pruritis Verified 04/02/20 07:30 domperidone AdvReac Mild OFF BALANCE Verified 04/02/20 07:30 metoclopramide AdvReac Mild OFF BALANCE Verified 04/02/20 07:30 Home Medications Home Medications Medication Instructions Recorded Confirmed Type citalopram 20 mg PO QAM 05/31/18 04/02/20 History clonazepam 0.5 mg PO BID PRN 05/31/18 04/02/20 History gabapentin 100 mg PO HS 05/31/18 04/02/20 History lamotrigine 400 mg PO BID 05/31/18 04/02/20 History meclizine 12.5 mg PO Q6H PRN 05/31/18 04/02/20 History multivitamin [Multiple Vitamins] 1 tab PO QAM 05/31/18 04/02/20 History aspirin [Aspirin Low Dose] 81 mg PO QAM 05/27/19 04/02/20 History cyanocobalamin (vitamin B-12) 1,000 mcg PO QAM 05/27/19 04/02/20 History buspirone 5 mg PO BID 04/02/20 04/02/20 History pantoprazole 20 mg PO BID 04/02/20 04/02/20 History Past Med/Surg History Medical History Anxiety (Chronic) Cerda esophagus (Chronic) Depression (Chronic) GERD (gastroesophageal reflux disease) (Chronic) Low back strain (Acute) Lumbar stenosis with neurogenic claudication PE (pulmonary embolism) (Resolved) "bilateral 2012, treated with Coumadin in past" Seizure (Chronic) On Lamictal"NO SEIZURES FOR YEARS AND YEARS" Temporomandibular joint disorder [employer]IC[employer]ILAT Surgical History H/O colonoscopy H/O esophagogastroduodenoscopy (Chronic) H/O vein stripping (Chronic) History of hysterectomy TOTAL S/P cholecystectomy Family History Other Heart disease Ovarian cancer Social History Smoking Status: Never smoker Second Hand Exposure: No; Do You Dip or Chew Tobacco: No; Tobacco Cessation Education Requested by Patient: No Hx Alcohol Use: No Hx Substance Use: No Preferred Language: Gabonese Communication Ability: Effective Child Care Required: No Beliefs That Will Affect Care: None Current Living Situation: Spouse Other Information That Helps Us Care for You: No Feels Safe at Home: Yes Safety Concerns: Feels Safe At This Time Review of Systems Review of Systems: At least ten systems reviewed and negative except as noted in the HPI. Physical Exam Physical Exam: General Appearance: WD/WN, vitals as above, NAD, sitting up in bed, pleasant, anxious Head: normocephalic, atraumatic Eyes: normal inspection, PERRL, conjunctivae normal, anicteric sclerae ENT: external ear and nose normal, oropharynx normal Neck: trachea midline, no thyromegaly normal visual inspection Respiratory: normal respiratory effort, lungs clear to auscultation, no wheeze, rales, rhonchi. Normal insp/exp effort, no accessory muscle use Cardiovascular: regular rate, rhythm, no murmur, normal peripheral pulses, no BLE edema. Vessels: no JVD or carotid bruit Chest: normal inspection of chest . + Tenderness to palpation of left chest wall Abdomen/GI: normal bowel sounds, soft, nontender, no hepatosplenomegaly Extremities/Musculoskeletal: no cyanosis or clubbing, extremities motor strength 5/5 Neurologic: PERRL, EOMI, accommodation nl, no face palsy, no dysarthria, CN's II-XI intact bilaterally and moves all extremities Psychiatric: A+Ox3, anxious, tearful intermittently Skin: no rashes, normal color, warm/dry Results & Data Results & Data ([facility]) Vital Signs (Past 12 Hours) Vital Signs Temp Pulse Pulse Resp BP BP Pulse Ox 04/02/20 08:47 62 20 119/62 96 04/02/20 08:00 96 04/02/20 07:58 22 88 L 04/02/20 07:36 93 04/02/20 07:04 94 04/02/20 06:52 37.0 C 82 22 162/80 H 91 Laboratory Results Short CBC 04/02/20 Range/Units 07:30 WBC 5.33 (4.8-10.8) K/uL Hgb 13.3 (12.0-16.0) g/dL Hct 39.3 (37-47) % Plt Count 185 (130-400) K/uL BMP 04/02/20 07:30 Sodium 141 Potassium 3.8 Chloride 108 H Carbon Dioxide 27 BUN 16 Creatinine 0.95 Glucose 91 Calcium 9.5 Cardiac Enzymes 04/02/20 04/02/20 Range/Units 07:30 08:25 Total Creatine Kinase 77 (26-192) U/L CK-MB (CK-2) 1.3 (0.5-3.6) ng/ml Troponin I < 0.015 < 0.015 (0-0.045) ng/ml Liver Function 04/02/20 Range/Units 07:30 Total Bilirubin 0.5 (0.2-1) mg/dl AST 14 L (15-37) U/L ALT 26 (12-78) U/L Alkaline Phosphatase 59 (45-117) U/L Albumin 3.7 (3.4-5.0) gm/dl Diagnostic Findings CXR: IMPRESSION: No acute process. CTA chest: IMPRESSION: 1. Cardiomegaly without evidence of acute pulmonary thromboembolic disease. 2. No pleural effusion or airspace consolidation typical for pneumonia. 3. There are a few subpleural solid pulmonary nodules redemonstrated measuring up to 5 mm which have slightly increased in size dating back to 2014 however suggest likely benign etiology. ECG Rhythm: normal sinus Change: no significant change Code Status & VTE Plan VTE Prophylaxis Plan VTE Prophylaxis will be ordered: Yes Supervising Physician Co-Signing Physician Notes I have seen and examined the patient and have discussed the case with the provider above. I agree with the assessment and plan as stated. 74 yo F with severe anxiety and no known h/o CAD who presents with chest pain x 2 weeks as above. She does have palpable tenderness which reproduces her pain and reports that she was raking stones back in January in her garden, but doesn't report any heavy lifting or strains recently. DSE planned for am per Cardiology recs. NPO p MN. Currently chest pain-free. My physical exam is consistent with that above. I am unimpressed by the one documented 88% reading on her oxygen saturation, however. She denies shortness of breath or other respiratory symptoms. It is possible this was a false reading as there are no others consistent with this picture, she is a non smoker, and lungs are clear on exam. Will await results of DSE in am, cont monitoring on telemetry and f/u cardiology recommendations. I did eligibility counselor the patient about her anxiety, which appears to be uncontrolled. She has been through some counseling and is on an SSRI and benzo PRN. She reports still grieving her siblings' deaths, and states the one year anniversary of her youngest brother's is next month. This is weighing on her. We spoke about options for better management of this going home including listening to sermons from her yarsanism online, reading more about anxiety in order to break it down more so it isn't so overwhelming, and seeing a counselor for talk therapy. She verbalized understanding with intent to comply. DO Salvador
[2020-04-02] MEDS ORDERED: ACETAMINOPHEN 325 MG TAB PO PRN (11:08)
[2020-04-02] MEDS ORDERED: NITROGLYCERIN SL 0.4 MG/TAB TAB SL PRN (11:08)
[2020-04-02] MEDS ORDERED: POLYETHYLENE (MIRALAX) 17 GM PACK PO PRN (11:08)
[2020-04-02] MEDS ORDERED: ONDANSETRON INJ 2 MG/ML 2 ML VIAL IV PRN (11:08)
[2020-04-02] MEDS ORDERED: clonazePAM 0.5 MG TAB PO PRN (11:22)
[2020-04-02] MEDS: CITALOPRAM 20 MG TAB PO SCH (12:48)
[2020-04-02] MEDS: PANTOprazole 40 MG TAB PO SCH ×2 (13:02→20:51)
[2020-04-02] MEDS: lamoTRIgine 100 MG TAB PO SCH ×2 (13:02→20:51)
[2020-04-02] MEDS: HEPARIN SOD 5,000 UNIT/0.5 ML VIAL SQ SCH ×2 (13:39→20:52)
--- NOTE | 2020-04-02 14:32 | Cardiology Consultation ---
Date of Consultation April 02, 2020 Assessment & Plan (1) Chest pain: (2) Anxiety: (3) Depression: So far her ischemic work-up is unremarkable. However, given her risk factors for coronary disease I do believe that an ischemic work-up is necessary at this time. So she will undergo a dobutamine stress echocardiogram in the a.m. At the same time I would recommend treatment for her anxiety and consideration should be given to asking our psychiatry colleagues to evaluate her. Should the stress test come back unremarkable then no further cardiac testing would be necessary. I will hold off on making any medication changes at this time. History of Present Illness Reason for Consultation: chest pain Requesting Physician: Marilee Mercado PA-C Attending Physician: Krystle Franco, History of Present Illness It was my pleasure to see Mrs. Wong in consultation today April 02, 2020. She is a very pleasant yet very anxious 74-year-old woman who I previously saw the single time as an outpatient for preop risk assessment. She presents to [facility] with complaints of worsening chest discomfort. She states that over the last several weeks her nerves have significantly worsened and she was seen by her primary care physician. They recommended starting her on BuSpar for her nerves, however, she was nervous about this and did not start the medication. She states that she has been having chest pain off and on for several weeks now. She describes as a sharp stabbing pain above her left breast that usually lasts a moment or 2. She states that this morning after waking up she had another episode of chest pain however this 1 was much more severe in intensity. She became concerned and came in the emergency department. Initial work-up was unremarkable and she was made to telemetry. She states that she is feeling very anxious at rest right now and has not had any more chest discomfort since admission. Allergies Allergy/AdvReac Type Severity Reaction Status Date / Time Sulfa (Sulfonamide Allergy Intermediate HIVES Verified 04/02/20 07:30 Antibiotics) phenazopyridine Allergy Unknown pruritis Verified 04/02/20 07:30 domperidone AdvReac Mild OFF BALANCE Verified 04/02/20 07:30 metoclopramide AdvReac Mild OFF BALANCE Verified 04/02/20 07:30 Home Medications Home Medications Medication Instructions Recorded Confirmed Type citalopram 20 mg PO QAM 05/31/18 04/02/20 History clonazepam 0.5 mg PO BID PRN 05/31/18 04/02/20 History gabapentin 100 mg PO HS 05/31/18 04/02/20 History lamotrigine 400 mg PO BID 05/31/18 04/02/20 History meclizine 12.5 mg PO Q6H PRN 05/31/18 04/02/20 History multivitamin [Multiple Vitamins] 1 tab PO QAM 05/31/18 04/02/20 History aspirin [Aspirin Low Dose] 81 mg PO QAM 05/27/19 04/02/20 History cyanocobalamin (vitamin B-12) 1,000 mcg PO QAM 05/27/19 04/02/20 History buspirone 5 mg PO BID 04/02/20 04/02/20 History pantoprazole 20 mg PO BID 04/02/20 04/02/20 History Patient History Medical History Anxiety (Chronic) Cerda esophagus (Chronic) Depression (Chronic) GERD (gastroesophageal reflux disease) (Chronic) Low back strain (Acute) Lumbar stenosis with neurogenic claudication PE (pulmonary embolism) (Resolved) "bilateral 2012, treated with Coumadin in past" Seizure (Chronic) On Lamictal"NO SEIZURES FOR YEARS AND YEARS" Temporomandibular joint disorder [employer] Surgical History H/O colonoscopy H/O esophagogastroduodenoscopy (Chronic) H/O vein stripping (Chronic) History of hysterectomy TOTAL S/P cholecystectomy Family History Other Heart disease Ovarian cancer Social History Smoking Status: Never smoker Second Hand Exposure: No; Do You Dip or Chew Tobacco: No; Tobacco Cessation Education Requested by Patient: No Hx Alcohol Use: No Hx Substance Use: No Preferred Language: Estonian Communication Ability: Effective Salvage Inspector Required: No Beliefs That Will Affect Care: None Current Living Situation: Spouse Other Information That Helps Us Care for You: No Feels Safe at Home: Yes Safety Concerns: Feels Safe At This Time Review of Systems Review of Systems: All systems reviewed & are unremarkable except as noted in HPI & below Physical Exam Physical Exam: General: Awake, alert and oriented x 3. No acute distress. HEENT: Normocephalic, atraumatic. Pupils equal, round and reactive to light and accommodation. Extraocular muscles are intact. Anicteric sclera. Moist mucous membranes. Neck: No JVD. No bruit. Cardiovascular: Regular. Positive S-4. Normal S-1 and S-2. No S-3. No murmurs or rubs. Pulmonary: Clear to auscultation B/L. No rales, rhonchi or wheezing Abdomen: Bowel sounds x 4, soft. No rebound, guarding or tenderness. No organomegaly. Extremities: No clubbing, cyanosis or edema. +2 pedal pulses bilaterally. Skin: Warm and dry. Results & Data ([facility]) Vital Signs (Past 12 Hours) Vital Signs Temp Pulse Pulse Resp BP BP Pulse Ox 04/02/20 12:20 64 04/02/20 11:17 36.7 C 61 18 145/75 H 99 04/02/20 10:04 66 18 121/64 98 04/02/20 08:47 62 20 119/62 96 04/02/20 08:00 96 04/02/20 07:58 22 88 L 04/02/20 07:36 93 04/02/20 07:04 94 04/02/20 06:52 37.0 C 82 22 162/80 H 91
[2020-04-02 14:48] LABS: iSTAT Creatinine 0.9 mg/dl (0.6-1.3); iSTAT Hemoglobin 12.9 g/dl (12.0-16.0); iSTAT Ionized Calcium 1.28 mmol/l (1.12-1.32); iSTAT Potassium 3.8 mmol/L (3.3-5.0)
--- NOTE | 2020-04-02 15:14 | Electrocardiogram Report ---
Test Reason : Blood Pressure : / mmHG Vent. Rate : 063 BPM Atrial Rate : 063 BPM P-R Int : 164 ms QRS Dur : 078 ms QT Int : 424 ms P-R-T Axes : 054 -14 026 degrees QTc Int : 433 ms Normal sinus rhythm Normal ECG When compared with ECG of 16-NOV-2019 13:29, No significant change was found Confirmed by Roge Melvin ([id number]) on 04/02/2020 3:14:05 PM Referred By: REFERRED SELF Confirmed By:Roge Melvin
--- NOTE | 2020-04-02 15:19 | Electrocardiogram Report ---
Test Reason : Blood Pressure : / mmHG Vent. Rate : 061 BPM Atrial Rate : 061 BPM P-R Int : 176 ms QRS Dur : 076 ms QT Int : 430 ms P-R-T Axes : 052 -17 005 degrees QTc Int : 432 ms Normal sinus rhythm Normal ECG When compared with ECG of 02-APR-2020 07:02, (unconfirmed) No significant change was found Confirmed by Roge Melvin ([id number]) on 04/02/2020 3:19:24 PM Referred By: REFERRED SELF Confirmed By:Roge Melvin
[2020-04-02] MEDS ORDERED: GABAPENTIN 100 MG CAP PO SCH (21:00)
[2020-04-03] MEDS: HEPARIN SOD 5,000 UNIT/0.5 ML VIAL SQ SCH (05:16)
[2020-04-03 08:00] LABS: Hematocrit (blood only) 41.4 % (37-47); Mean Corpuscular Hemoglobin 30.5 pg (25-34); Mean Corpuscular Hgb Conc 31.4 g/dL (32-36); Mean Corpuscular Volume 97.2 fL (80-100); Mean Platelet Volume 9.4 fL (7.4-10.4); Platelet Count 218 K/uL (130-400); RDW Coefficient of Variation 13.6 % (11.5-14.5); RDW Standard Deviation 47.8 fL (36.4-46.3); Red Blood Count 4.26 M/uL (4.2-5.4); White Blood Count 9.56 K/uL (4.8-10.8)
[2020-04-03 08:26] LABS: BUN Creatinine Ratio 17.3 (10-20); Calcium 9.7 mg/dl (8.5-10.1); Creatinine Clr Calc Pharmacy 56.7 ml/min; Est GFR (African American) 70.7
[2020-04-03] MEDS: PANTOprazole 40 MG TAB PO SCH (08:57)
[2020-04-03] MEDS: lamoTRIgine 100 MG TAB PO SCH (08:57)
[2020-04-03] MEDS: CITALOPRAM 20 MG TAB PO SCH (08:57)
[2020-04-03] MEDS ORDERED: CYANOCOBALAMIN 500 MCG TABLET (VITAMIN B-12) PO SCH (09:00)
[2020-04-03] MEDS ORDERED: MULTIVITAMIN TAB PO SCH (09:00)
[2020-04-03] MEDS ORDERED: ASPIRIN 81 MG ECTAB PO SCH (09:00)
[2020-04-03 09:47] LABS: Estimated Average Glucose 111 mg/dl; Hemoglobin A1C 5.5 % (4.5-5.6)
[2020-04-03] MEDS ORDERED: ATROPINE SULFATE 0.1 MG/ML 10ML SYR IV ONE (10:13)
[2020-04-03] MEDS ORDERED: METOPROLOL TARTRATE 1 MG/ML VIAL IV ONE (10:13)
[2020-04-03] MEDS ORDERED: DOBUTamine HCL 12.5 MG/ML 20 ML VIAL IV ONE (10:13)
--- NOTE | 2020-04-03 10:32 | Hospitalist Progress Note ---
Date of Service April 03, 2020 Assessment & Plan (1) Acute respiratory failure with hypoxia: This is a 74yo F with a PMH of anxiety, depression, Cerda's esophagus, history of PE, CKD III and other medical problems listed below who presents with intermittent chest pain x 2 weeks and acute hypoxic respiratory failure. -Initially hypoxic at 88% on room air but possibly an error. Normal lung exam, no history of asthma or COPD -Initially given albuterol and IV Solu-Medrol in ED but no indication to continue upon admission -Chest CTA without evidence of acute pulmonary thromboembolic disease, no pleural effusion or airspace consolidation typical for pneumonia. Presence of subpleural nodules slightly increased in size since 2015 but likely benign etiology -Saturating at 95% on room air now without issue (2) Chest pain: Atypical presentation, in setting of significant anxiety with associated SOB -ECG with normal sinus rhythm, troponin negative x 4, history of normal dobutamine stress echo in January 2019 -Seen by Dr. Cortez yesterday who feels that due to CAD risk factors, patient needs ischemic work-up. Plans for dobutamine stress echo today (3) Anxiety: Worsening anxiety recently, has been requring more Klonopin than previously. Prescribed Buspar by PCP but has yet to start -Anxiety much improved since yesterday. Continue Celexa, Buspar, Klonopin PRN -Also counseled on importance of lifestyle strategies for anxiety management (4) Seizure: Remote history of seizures 35 years ago -Follows with Eliz Mcwilliams PA-C of [facility] neuro -Continue Lamictal (5) Cerda esophagus: (6) GERD (gastroesophageal reflux disease): Continue PPI DVT Ppx: SQ heparin Code status: FULL PCP: Amina [facility] Plan to return home once medically stable. Patient seen in collaboration with . Please see addendum. Admission and Anticipated Discharge Date Admission Date: April 02, 2020 Supervising Physician Co-Signing Physician Notes I have seen and examined the patient and have discussed the case with the provider above. I agree with the assessment and plan as stated. DSE was negative, Pain has resolved. Cleared for discharge with close PCP follow-up recommended. My physical exam of this patient reflects that above. DO Rubin Franco Patient seen and examined in 251-1. Feeling much better today. Had a few more episodes of similar achy left-sided chest pain that lasted about a minute yesterday, but none today. Feeling much less anxious. Is due for dobutamine stress test soon. No fever, chills, lightheadedness, headache, chest pain, palpitation, shortness of breath, nausea, vomiting, abdominal pain, dysuria, diarrhea or constipation. Review of Systems Review of Systems: At least ten systems reviewed and negative except as noted in the HPI. Physical Exam Physical Exam: General Appearance: WD/WN, vitals as above, NAD, sitting in bedside chair, pleasant Head: normocephalic, atraumatic Eyes: normal inspection, PERRL, conjunctivae normal, anicteric sclerae ENT: external ear and nose normal, oropharynx normal Neck: trachea midline, no thyromegaly, normal visual inspection Respiratory: normal respiratory effort, lungs clear to auscultation, no wheeze, rales, rhonchi Cardiovascular: regular rate, rhythm, no murmur, normal peripheral pulses, no BLE edema Chest: normal inspection of chest, no chest wall TTP Abdomen/GI: normal bowel sounds, soft, nontender, no hepatosplenomegaly Extremities/Musculoskeletal: no cyanosis or clubbing, extremities motor strength 5/5 Neurologic: PERRL, CN's II-XI intact bilaterally and moves all extremities Skin: no rashes, normal color, warm/dry Results & Data Results & Data ([facility]) Vital Signs (Past 12 Hours) Vital Signs Temp Pulse Pulse Resp BP Pulse Ox 04/03/20 07:49 57 L 04/03/20 07:03 36.7 C 62 18 101/65 95 04/03/20 03:39 36.7 C 63 17 109/63 94 04/03/20 01:26 65 04/02/20 23:29 36.7 C 62 18 126/75 97 Laboratory Results Short CBC 04/03/20 Range/Units 07:44 WBC 9.56 (4.8-10.8) K/uL Hgb 13.0 (12.0-16.0) g/dL Hct 41.4 (37-47) % Plt Count 218 (130-400) K/uL BMP 04/03/20 07:44 Sodium 141 Potassium 4.0 Chloride 108 H Carbon Dioxide 27 BUN 16 Creatinine 0.93 Glucose 95 Calcium 9.7 Cardiac Enzymes 04/02/20 04/02/20 Range/Units 14:19 20:23 Troponin I < 0.015 < 0.015 (0-0.045) ng/ml ECG Rhythm: normal sinus Change: no significant change
--- NOTE | 2020-04-03 11:47 | Discharge Summary ---
Date of Service April 03, 2020 Admission HPI Per Admitting Provider This is a 74yo F with a PMH of anxiety, depression, Cerda's esophagus, history of PE, CKD III and other medical problems listed below who presents with intermittent chest pain x 2 weeks. Patient has been having intermittent aching, left-sided chest pain for the past 2 weeks and woke up with a more severe episode this morning. States that pain this morning felt similar to when she discovered she had a PE approximately 5 years ago, so she felt that it was necessary to come in for further evaluation. Chest pain mainly occurs both at rest and with exertion. Associated with some shortness of breath but denies any nausea, vomiting or presyncope. Pain resolved with sublingual nitroglycerin upon arrival. Was also found to be hypoxic at 88% on room air and is now saturating 98% on 2 L nasal cannula. Does not require home oxygen. Does endorse a significant amount of anxiety recently due to current events as well as being told she has kidney disease. Has been taking Klonopin more frequently and was recently prescribed BuSpar from PCP, but has not started it yet. Denies any fever, chills, lightheadedness, visual changes, cough, palpitations, wheezing, nausea, vomiting, abdominal pain, dysuria, diarrhea or constipation. Denies any personal history of heart disease. History of dobutamine stress echo in January 2019 with normal LV systolic function and EF of 60-65%. Admission Exam Per Admitting Provider General Appearance: WD/WN, vitals as above, NAD, sitting up in bed, pleasant, anxious Head: normocephalic, atraumatic Eyes: normal inspection, PERRL, conjunctivae normal, anicteric sclerae ENT: external ear and nose normal, oropharynx normal Neck: trachea midline, no thyromegaly normal visual inspection Respiratory: normal respiratory effort, lungs clear to auscultation, no wheeze, rales, rhonchi. Normal insp/exp effort, no accessory muscle use Cardiovascular: regular rate, rhythm, no murmur, normal peripheral pulses, no BLE edema. Vessels: no JVD or carotid bruit Chest: normal inspection of chest . + Tenderness to palpation of left chest wall Abdomen/GI: normal bowel sounds, soft, nontender, no hepatosplenomegaly Extremities/Musculoskeletal: no cyanosis or clubbing, extremities motor strength 5/5 Neurologic: PERRL, EOMI, accommodation nl, no face palsy, no dysarthria, CN's II-XI intact bilaterally and moves all extremities Psychiatric: A+Ox3, anxious, tearful intermittently Skin: no rashes, normal color, warm/dry Principal Diagnosis Atypical chest pain-resolved Hyperlipidemia Anxiety Discharge Exam General Appearance: WD/WN, vitals as above, NAD, sitting in bedside chair, pleasant Head: normocephalic, atraumatic Eyes: normal inspection, PERRL, conjunctivae normal, anicteric sclerae ENT: external ear and nose normal, oropharynx normal Neck: trachea midline, no thyromegaly, normal visual inspection Respiratory: normal respiratory effort, lungs clear to auscultation, no wheeze, rales, rhonchi Cardiovascular: regular rate, rhythm, no murmur, normal peripheral pulses, no BLE edema Chest: normal inspection of chest, no chest wall TTP Abdomen/GI: normal bowel sounds, soft, nontender, no hepatosplenomegaly Extremities/Musculoskeletal: no cyanosis or clubbing, extremities motor strength 5/5 Neurologic: PERRL, CN's II-XI intact bilaterally and moves all extremities Skin: no rashes, normal color, warm/dry Discharge Data Allergies Allergy/AdvReac Type Severity Reaction Status Date / Time Sulfa (Sulfonamide Allergy Intermediate HIVES Verified 04/02/20 07:30 Antibiotics) phenazopyridine Allergy Unknown pruritis Verified 04/02/20 07:30 domperidone AdvReac Mild OFF BALANCE Verified 04/02/20 07:30 metoclopramide AdvReac Mild OFF BALANCE Verified 04/02/20 07:30 Consultations 04/02/20 11:21 Consult Cardiology Routine Ordered Studies 04/02/20 07:04 CT angio chest PE protocol Stat Hospital Course (1) Chest pain: 74-year-old female with severe uncontrolled anxiety presented to the ER with worsening chest discomfort. She reports significant stressors over the loss of several family members and that over the last couple of weeks she is experienced intermittent chest pain described as a sharp stabbing pain above her left breast that lasts less than 5 minutes. There was an episode with increased intensity which was concerning to her prompting presentation. In the ER she denied respiratory symptoms but had one reading of 88% oxygen saturation and was temporarily placed on supplemental oxygen. The readings around this level of 88% were 93% and 96% (before and after, respectively) within a 20 to 25-minute. She had a normal chest x-ray and a normal lung exam. EKG revealed sinus rhythm with no ST depression or elevation in a rate of 63 bpm. She was sent for a CAT scan of the chest which did not show any evidence of PE. She was given nitroglycerin which alleviated her pain. She was also given 1 dose of Solu- Medrol and nebulized bronchodilators in the ER, however, without concerning respiratory symptoms change in sputum production or other objective evidence of a primary respiratory issue this was not continued. Additionally she has no history of lung disease or smoking. She was admitted to the hospitalist service and troponin was trended overnight and negative. Cardiology was consulted and recommended further ischemic work-up with a dobutamine stress echo which was performed the following day. This was normal and the patient did not experience further symptoms overnight. At time of discharge she was hemodynamically stable and afebrile and tolerating p.o. She was mentating and ambulating at baseline and oxygenating well on room air. She was sent home in stable condition with close primary care follow-up recommended. Of note on lipid panel screening her total cholesterol was 237, LDL 164, HDL 52, triglycerides 107. Further discussion with primary care physician regarding the initiation of statin therapy is warranted. The patient has significant anxiety and is already reported significant stress, so prefer to defer this conversation her PCP, for further discussion. (2) Hyperlipidemia: (3) Anxiety: Total Time Total Time Spent Total Time Spent (In Minutes): 60 Total Time Includes: Examination of the Patient, Discharge Planning, Medication Reconciliation and Communication With Other Providers Discharge Plan Discharge Items Patient Disposition: Home - Self-Care Reason For Visit: CHEST PAIN,ACUTE HYPOXIA Discharge Diagnosis: Atypical chest pain-resolved Hyperlipidemia Anxiety Activity: Resume your previous activity Non-emergency contact: Primary Care Provider Call non-emergency contact if: you have any medication questions, your symptoms worsen, your pain is concerning for you and you have a fever Follow-up/Referrals: Adalberto Huynh MD [Primary Care Provider] - Diet: Heart Healthy Addtl Attending Provider Instructions: Please take all medications as instructed on discharge list below. It is recommended that you follow-up with your primary care doctor within 1 to 2 weeks of discharge from this hospital to ensure you are still doing well. It will also be important to review your recent cholesterol panel as you are levels are high enough to warrant possible medical therapy with a cholesterol-lowering drug. Your stress test was negative, however, if concerning symptoms develop return please seek immediate medical attention. It was a pleasure taking care of you! Please call if you have any questions or problems. You can reach a [facility] hospitalist on duty at [facility] 24 hours a day by calling [phone]. Take care of yourself. Krystle Franco, [facility]ist Pending Studies at Discharge: No Stand-Alone Forms: My [facility], Smoking Cessation Medications and DC Order Prescriptions: Continued multivitamin [Multiple Vitamins] Tablet 1 tab PO QAM RF: 0 lamotrigine 200 mg tablet 400 mg PO BID RF: 0 clonazepam 0.5 mg tablet 0.5 mg PO BID PRN (Reason: Anxiety) RF: 0 meclizine 12.5 mg tablet 12.5 mg PO Q6H PRN (Reason: Dizziness Or Vertigo) RF: 0 citalopram 20 mg Tablet 20 mg PO QAM RF: 0 gabapentin 100 mg capsule 100 mg PO HS RF: 0 cyanocobalamin (vitamin B-12) 1,000 mcg Tablet 1,000 mcg PO QAM RF: 0 aspirin [Aspirin Low Dose] 81 mg Tablet,Delayed Release (Dr/Ec) 81 mg PO QAM RF: 0 buspirone 5 mg tablet 5 mg PO BID RF: 0 pantoprazole 20 mg tablet,delayed release (DR/EC) 20 mg PO BID RF: 0 Discharge Orders: Discharge Order (Routine); Ordered 04/03/20 Ordered By: Krystle Franco Admission Data Admit Date/Time: 04/02/20 09:41 Attending Provider: Krystle Franco Admit Provider: Krystle Franco Primary Care Provider: Adalberto Huynh Other Providers: Bharath Cortez
--- NOTE | 2020-04-03 14:12 | Cardiology Progress Note ---
Date of Service April 03, 2020 Assessment & Plan (1) Chest pain: (2) Anxiety: (3) Depression: Patient significantly improved Dobutamine stress echocardiogram was nonischemic. No further cardiac testing or intervention is necessary at this time. I do not see any cardiac component to her complaints. Okay to discharge home from a cardiac standpoint, no cardiac follow-up necessary as an outpatient. Subjective Patient seen and examined, chart reviewed. Patient states that she is feeling much better compared to presentation. Notes that her nerves have improved. Denies any further chest pain overnight nor she experience any shortness of breath, palpitations, lightheadedness, dizziness or syncope. Telemetry reviewed: Normal sinus rhythm without arrhythmia or significant ectopy. Review of Systems Review of Systems: All systems reviewed & are unremarkable except as noted in HPI & below Physical Exam Physical Exam: General: Awake, alert and oriented x 3. No acute distress. HEENT: Normocephalic, atraumatic. Pupils equal, round and reactive to light and accommodation. Extraocular muscles are intact. Anicteric sclera. Moist mucous membranes. Neck: No JVD. No bruit. Cardiovascular: Regular. Positive S-4. Normal S-1 and S-2. No S-3. No murmurs or rubs. Pulmonary: Clear to auscultation B/L. No rales, rhonchi or wheezing Abdomen: Bowel sounds x 4, soft. No rebound, guarding or tenderness. No organomegaly. Extremities: No clubbing, cyanosis or edema. +2 pedal pulses bilaterally. Skin: Warm and dry. Results & Data Vital Signs (Past 12 Hours) Vital Signs Temp Pulse Pulse Resp BP Pulse Ox 04/03/20 12:00 36.7 C 62 18 101/65 95 04/03/20 07:49 57 L 04/03/20 07:03 36.7 C 62 18 101/65 95 04/03/20 03:39 36.7 C 63 17 109/63 94
== END 2020-04-03 14:08 | disposition home or self-care (01) ==
LOC: ED 06:48 → 2W 09:41 → INTOOBSV 09:41 → 2W 10:46

== ENCOUNTER 2021-04-16 00:15 | Observation (INO) ==
[2021-04-16] MEDS ORDERED: SODIUM CHLORIDE 0.9% 1000ML 1,000 ML IV ONE ×2 (01:18→06:34)
[2021-04-16] MEDS ORDERED: fentaNYL citrate 100 MCG/2 ML VIAL IV STA (01:18)
[2021-04-16] MEDS ORDERED: fentaNYL citrate 100 MCG/2 ML VIAL IV PRN (01:18)
[2021-04-16] MEDS ORDERED: ONDANSETRON INJ 2 MG/ML 2 ML VIAL IV STA (01:18)
--- NOTE | 2021-04-16 01:22 | Emergency Department Note ---
Impression & Plan Intractable right lower quadrant abdominal pain, Acute right flank pain ED Provider Note Name: KRISTI VILLALOBOS Age: 75 Sex: F Arrives Via: Walk-In Informant: Patient, Family ED Provider: Jovany Ashley MD Chief Complaint: abdominal pain Impression: See Above Medical Decision Makin yr old female with acute RLQ abdominal pain radiating to right flank for the last few hours. Admits some mild discomfort throughout the day felt to be due to tripping earlier without trauma. She is very uncomfortable and multiple rounds IV narcotics used to control pain, along with small dose ativan to supplement. CT non con a/p done initially unremarkable without evidence of expected stone. CT A a/p then obtained which was also unremarkable. Labs including Lactate negative. She is still having pain though enough improvement to be comfortable, but requiring NC O2. With level of pain and no clear etiology I have asked hospitalist to evaluate further. No neuro deficits to indicated emergent MRI and she has no rash to suspect shingles at this time. Prior Medical Record and Triage/Nursing Notes reviewed by Me Additional history obtained from chart Differentials:Renal colic, UTI, appendicitis, diverticulitis, mesenteric ischemia, aortic pathology, infections, inflammatory bowel disease, PUD, biliary pathology, as well as other pathologies. Vital Signs: reviewed and remarkable for no significant abnormalities Interventions: saline lock, fentanyl 50mcg iv x 2, dilaudid 1mg & 0.5mg IV, ativan 0.5mg iv Labs:Reviewed and remarkable for no significant abnormalities Imaging:[facility] Radiologist interpretation reviewed by me: CTA a/p wo/w con: no acute findings Consults:Dr Westley Jacobson Hospitalist Plan: Disposition:Hospitalization. Condition: Good History of Present Illness:75 yr old female arrives for evaluation of flank pain. Patient notes she had sudden onset right flank pain this evening about 8pm tonight. Associated nausea and dry heaves. Pain radiates to right lower quadrant. Nothing makes better nor worse. No medication prior to arrival. No history of similar. No previous abdominal surgeries. No trauma, injuries, falls. No inciting event. Feeling well without reason for dehydration recently. Denies fevers, chills, chest pain, urinary symptoms, leg swelling, rashes, headache, neck pain, sob, nor other symptoms. ROS: See above HPI for pertinent positives & negatives. A total of 10 systems reviewed and were otherwise negative. Past Medical History:See Below Past Surgical History:See Below Family History:See Below Social History:See Below Home Medications:See Below Allergies:See Below Vitals:Blood Pressure: 123/70, Pulse 84, RR 20, T 36.4C, O2 98% on RA Physical Exam: GENERAL: Patient is severely uncomfortable appearing and in severe distress. Crying and uncomfortable EYES: No scleral icterus, unremarkable pupils. ENT: Mucous membranes moist, no nasal congestion. NECK: No masses appreciated, nomeningismus, trachea is midline. RESPIRATORY: No dyspnea. Clear to auscultation and equal bilaterally. No wheeze, no rhonchi. CARDIOVASCULAR: Regular rate and rhythm.No murmurs, rubs, gallops appreciated. GASTROINTESTINAL: Abdomen soft, non-tender, no peritonitis.Bowel sounds positive.No masses appreciated. BACK: No midline tenderness, no CVA tenderness EXTREMITIES: Normal motion all extremities, no cyanosis, no edema. NEUROLOGIC: Alert and oriented, no acute motor or sensory deficits, no focal wea kness, cranial nerves grossly intact. SKIN: No rash, no jaundice, no diaphoresis. PSYCH: Appropriate GCS: 15 ED Course: Times/Reassessments: Continued pain though gradually comfortable enough to lay in bed without writhing Jovany Ashley MD Past Med/Surg History Medical History Anxiety Cerda esophagus Chronic kidney disease, stage 2 (mild) Depression GERD (gastroesophageal reflux disease) History of back problems HX BACK SURGERY History of high cholesterol PE (pulmonary embolism) "bilateral 2011, treated with Coumadin in past" Right flank pain, chronic FOR ABOUT A YR,PT DISCUSSED WITH PCP Seizure On Lamictal"NO SEIZURES FOR YEARS AND YEARS" Temporomandibular joint disorder CLICKS BILAT Surgical History H/O colonoscopy H/O esophagogastroduodenoscopy H/O vein stripping History of back surgery History of hysterectomy TOTAL S/P cholecystectomy HX Family History Other Heart disease Ovarian cancer Social History Smoking Status: Never smoker Second Hand Exposure: No; Hx Alcohol Use: No Hx Substance Use: No Preferred Language: Greenlandic Communication Ability: Effective Visual Impairment: No Limitations Cassandra Architect Required: No Beliefs That Will Affect Care: None Current Living Situation: Spouse Feels Safe at Home: Yes Assistive Devices: Glasses Allergies Allergies Allergy/AdvReac Type Severity Reaction Status Date / Time phenazopyridine Allergy Unknown pruritis Verified 04/16/21 01:17 Sulfa (Sulfonamide Allergy Unknown HIVES Verified 04/16/21 01:17 Antibiotics) domperidone AdvReac Unknown OFF BALANCE Verified 04/16/21 01:17 metoclopramide AdvReac Unknown OFF BALANCE Verified 04/16/21 01:17 Home Meds Home Medications Medication Instructions Recorded Confirmed citalopram 20 mg tablet 20 mg PO QAM 05/31/18 04/16/21 clonazepam 0.5 mg tablet 0.5 mg PO BID PRN 05/31/18 04/16/21 gabapentin 100 mg capsule 200 mg PO HS 05/31/18 04/16/21 lamotrigine 200 mg tablet 400 mg PO BID 05/31/18 04/16/21 aspirin 81 mg tablet,delayed 81 mg PO QAM 05/27/19 04/16/21 release (Aspirin Low Dose) pantoprazole 20 mg tablet,delayed 40 mg PO BID 04/02/20 04/16/21 release rosuvastatin 5 mg tablet 5 mg PO QAM 08/16/20 04/16/21 vitamin B complex (Complex B-100) 1 tab PO DAILY 01/16/21 04/16/21 buspirone 10 mg tablet 10 mg PO BID 02/01/21 04/16/21 Results & Data (ED) Vital Signs Vital Signs - 24 hr 04/16/21 01:10 04/16/21 01:22 04/16/21 01:45 Temperature 36.4 C L Temperature Source Temporal Artery Scan Pulse Rate 68 Pulse Rate [Right Finger] 88 76 Respiratory Rate 20 20 20 Blood Pressure 168/72 H Blood Pressure [Right Arm] 114/81 114/81 Blood Pressure Mean 104 Blood Pressure Mean [Right Arm] 92 92 Pulse Oximetry 98 98 92 Oxygen Delivery Method Room Air Room Air Room Air Sepsis Recent Fever Within 48 Hours No Sepsis New/Unexplained Change in Mental Status No Sepsis Action Taken by Nursing No Action Required 04/16/21 02:05 04/16/21 02:36 04/16/21 03:03 Temperature Temperature Source Pulse Rate Pulse Rate [Right Finger] 87 83 88 Respiratory Rate 22 20 20 Blood Pressure Blood Pressure [Right Arm] 133/63 121/72 137/67 Blood Pressure Mean Blood Pressure Mean [Right Arm] 86 88 90 Pulse Oximetry 94 88 L 93 Oxygen Delivery Method Room Air Room Air Room Air Sepsis Recent Fever Within 48 Hours Sepsis New/Unexplained Change in Mental Status Sepsis Action Taken by Nursing 04/16/21 03:46 04/16/21 05:00 Temperature Temperature Source Pulse Rate Pulse Rate [Right Finger] 84 82 Respiratory Rate 18 18 Blood Pressure Blood Pressure [Right Arm] 121/63 123/70 Blood Pressure Mean Blood Pressure Mean [Right Arm] 82 87 Pulse Oximetry 98 94 Oxygen Delivery Method Room Air Room Air Sepsis Recent Fever Within 48 Hours Sepsis New/Unexplained Change in Mental Status Sepsis Action Taken by Nursing Laboratory Data Result diagrams: 04/16/21 01:20 04/16/21 01:20 Lab Results 04/16/21 04/16/21 04/16/21 Range/Units 01:20 01:20 03:10 WBC 8.87 (4.8-10.8) K/uL RBC 4.20 (4.2-5.4) M/uL Hgb 13.8 (12.0-16.0) g/dL Hct 40.7 (37-47) % MCV 96.9 (80-100) fL MCH 32.9 (25-34) pg MCHC 33.9 (32-36) g/dL RDW Std Deviation 46.8 H (36.4-46.3) fL RDW Coeff of Bill 13.2 (11.5-14.5) % Plt Count 237 (130-400) K/uL MPV 9.5 (7.4-10.4) fL Immature Gran % (Auto) 0.2 % Neut % (Auto) 57.3 % Lymph % (Auto) 35.6 % Richardson % (Auto) 6.8 % Eos % (Auto) 0.0 % Baso % (Auto) 0.1 % Neut # (Auto) 5.08 (1.4-6.5) K/uL Lymph # (Auto) 3.16 (1.2-3.4) K/uL Richardson # (Auto) 0.60 H (0.11-0.59) K/uL Eos # (Auto) 0.00 (0-0.5) K/uL Baso # (Auto) 0.01 (0-0.2) K/uL Immature Gran # (Auto) 0.02 (0.00-0.02) K/uL Sodium 140 (136-145) mmol/L Potassium 4.1 (3.5-5.1) mmol/L Chloride 108 H (98-107) mmol/L Carbon Dioxide 24 (21-32) mmol/L Anion Gap 7.0 (3-11) BUN 13 (7-18) mg/dl Creatinine 0.85 (0.6-1.2) mg/dl Est Cr Clr Drug Dosing Not Reportable Est GFR ( Amer) 78.2 ml/min Est GFR (Non-Af Amer) 67.5 ml/min BUN/Creatinine Ratio 15.2 (10-20) Glucose 117 H (70-99) mg/dl Lactate (0.4-2.0) mmol/L Calcium 10.3 H (8.5-10.1) mg/dl Magnesium 2.4 (1.8-2.4) mg/dl Total Bilirubin 0.4 (0.2-1) mg/dl Direct Bilirubin 0.2 (0-0.2) mg/dl AST 16 (15-37) U/L ALT 23 (12-78) U/L Alkaline Phosphatase 67 (45-117) U/L Total Protein 7.9 (6.4-8.2) gm/dl Albumin 4.2 (3.4-5.0) gm/dl Lipase 76 (73-393) U/L Urine Color Yellow Urine Appearance Clear (Clear) Urine pH 6.5 (4.5-7.5) Ur Specific [place] 1.005 (1.000-1.030) Urine Protein Negative (Negative) Urine Glucose (UA) Negative (Negative) Urine Ketones Negative (Negative) Urine Blood Negative (Negative) Urine Nitrite Negative (Negative) Urine Bilirubin Negative (Negative) Urine Urobilinogen Negative (Negative) Ur Leukocyte Esterase 2+ H (Negative) Urine WBC (Auto) 10-30 H (0-5) /hpf Urine RBC (Auto) 0-4 (0-4) /hpf U Hyaline Cast (Auto) 0 (0-5) /lpf U Epithel Cells (Auto) 5-10 H (0-5) /lpf Urine Bacteria (Auto) Negative (Negative) COVID-19 Eval Order SARS-CoV-2 (PCR) (Negative) 04/16/21 04/16/21 04/16/21 Range/Units 03:57 05:22 05:22 WBC (4.8-10.8) K/uL RBC (4.2-5.4) M/uL Hgb (12.0-16.0) g/dL Hct (37-47) % MCV (80-100) fL MCH (25-34) pg MCHC (32-36) g/dL RDW Std Deviation (36.4-46.3) fL RDW Coeff of Bill (11.5-14.5) % Plt Count (130-400) K/uL MPV (7.4-10.4) fL Immature Gran % (Auto) % Neut % (Auto) % Lymph % (Auto) % Richardson % (Auto) % Eos % (Auto) % Baso % (Auto) % Neut # (Auto) (1.4-6.5) K/uL Lymph # (Auto) (1.2-3.4) K/uL Richardson # (Auto) (0.11-0.59) K/uL Eos # (Auto) (0-0.5) K/uL Baso # (Auto) (0-0.2) K/uL Immature Gran # (Auto) (0.00-0.02) K/uL Sodium (136-145) mmol/L Potassium (3.5-5.1) mmol/L Chloride (98-107) mmol/L Carbon Dioxide (21-32) mmol/L Anion Gap (3-11) BUN (7-18) mg/dl Creatinine (0.6-1.2) mg/dl Est Cr Clr Drug Dosing Est GFR ( Amer) ml/min Est GFR (Non-Af Amer) ml/min BUN/Creatinine Ratio (10-20) Glucose (70-99) mg/dl Lactate 1.1 (0.4-2.0) mmol/L Calcium (8.5-10.1) mg/dl Magnesium (1.8-2.4) mg/dl Total Bilirubin (0.2-1) mg/dl Direct Bilirubin (0-0.2) mg/dl AST (15-37) U/L ALT (12-78) U/L Alkaline Phosphatase (45-117) U/L Total Protein (6.4-8.2) gm/dl Albumin (3.4-5.0) gm/dl Lipase (73-393) U/L Urine Color Urine Appearance (Clear) Urine pH (4.5-7.5) Ur Specific [place] (1.000-1.030) Urine Protein (Negative) Urine Glucose (UA) (Negative) Urine Ketones (Negative) Urine Blood (Negative) Urine Nitrite (Negative) Urine Bilirubin (Negative) Urine Urobilinogen (Negative) Ur Leukocyte Esterase (Negative) Urine WBC (Auto) (0-5) /hpf Urine RBC (Auto) (0-4) /hpf U Hyaline Cast (Auto) (0-5) /lpf U Epithel Cells (Auto) (0-5) /lpf Urine Bacteria (Auto) (Negative) COVID-19 Eval Order Covid19 at [facility] SARS-CoV-2 (PCR) NEGATIVE (Negative) Administered Medications Discontinued Medications Fentanyl Citrate (Fentanyl Citrate 100 Mcg/2 Ml Vial) 50 mcg IV Q15M PRN PRN Reason: Pain Stop: 04/30/21 01:17 Last Admin: 04/16/21 01:47 Dose: 50 mcg Documented by: [id number] Fentanyl Citrate (Fentanyl Citrate 100 Mcg/2 Ml Vial) 50 mcg IV NOW STA Stop: 04/16/21 01:19 Last Admin: 04/16/21 01:26 Dose: 50 mcg Documented by: [id number] Hydromorphone HCl (Hydromorphone Inj 1 Mg/Ml Syringe) 1 mg IV NOW STA Stop: 04/16/21 01:58 Last Admin: 04/16/21 02:03 Dose: 1 mg Documented by: [id number] Hydromorphone HCl (Hydromorphone Inj 0.5 Mg/0.5 Ml Syr) 0.5 mg IV Q15M PRN PRN Reason: Pain Stop: 04/30/21 02:32 Last Admin: 04/16/21 06:05 Dose: 0.5 mg Documented by: [id number] Sodium Chloride (Nss 1000ml) 1,000 mls @ 999 mls/hr IV .Q1H1M ONE Stop: 04/16/21 02:18 Last Infusion: 04/16/21 02:36 Dose: 0 mls/hr Documented by: [id number] Admin: 04/16/21 01:26 Dose: 999 mls/hr Documented by: [id number] Lorazepam (Ativan) 0.5 mg in 1 mls @ 1 mls/min IV NOW STA Stop: 04/16/21 03:19 Last Admin: 04/16/21 03:25 Dose: 1 mls/min Documented by: [id number] Piperacillin Sod/Tazobactam Sod (Zosyn) 4.5 gm in 120 mls @ 240 mls/hr IV NOW STA Stop: 04/16/21 06:21 Last Admin: 04/16/21 06:05 Dose: 240 mls/hr Documented by: [id number] Ioversol (Optiray 320 125ml) 120 ml IV ONCE ONE Stop: 04/16/21 03:26 Last Admin: 04/16/21 03:26 Dose: 120 ml Documented by: [id number] Ondansetron HCl (Ondansetron Inj 2 Mg/Ml 2 Ml Vial) 4 mg IV NOW STA Stop: 04/16/21 01:19 Last Admin: 04/16/21 01:26 Dose: 4 mg Documented by: [id number] Discharge Plan Visit Data Chief Complaint: Flank Pain Stated Complaint: SEVERE PAIN LEFT SIDE ED Provider: Jovany Ashley Discharge Problem: Intractable right lower quadrant abdominal pain, Acute right flank pain
[2021-04-16 01:30] LABS: Basophils # (auto) 0.01 K/uL (0-0.2); Basophils % (auto) 0.1 %; Hematocrit (blood only) 40.7 % (37-47); Hemoglobin 13.8 g/dL (12.0-16.0); Immature Granulocytes # (auto) 0.02 K/uL (0.00-0.02); Immature Granulocytes % (auto) 0.2 %; Lymphocytes # (auto) 3.16 K/uL (1.2-3.4); Lymphocytes % (auto) 35.6 %; Mean Corpuscular Hemoglobin 32.9 pg (25-34); Mean Corpuscular Hgb Conc 33.9 g/dL (32-36); Mean Corpuscular Volume 96.9 fL (80-100); Mean Platelet Volume 9.5 fL (7.4-10.4); Monocytes % (auto) 6.8 %; Neutrophils # (auto) 5.08 K/uL (1.4-6.5); Neutrophils % (auto) 57.3 %; Platelet Count 237 K/uL (130-400); RDW Coefficient of Variation 13.2 % (11.5-14.5); RDW Standard Deviation 46.8 fL (36.4-46.3); White Blood Count 8.87 K/uL (4.8-10.8)
[2021-04-16 01:52] LABS: Alanine Aminotransferase 23 U/L (12-78); Albumin Level 4.2 gm/dl (3.4-5.0); Aspartate Aminotransferase 16 U/L (15-37); BUN Creatinine Ratio 15.2 (10-20); Bilirubin Direct 0.2 mg/dl (0-0.2); Blood Urea Nitrogen 13 mg/dl (7-18); Calcium 10.3 mg/dl (8.5-10.1); Carbon Dioxide 24 mmol/L (21-32); Chloride 108 mmol/L (98-107); Est GFR (African American) 78.2 ml/min; Est GFR (Non-African American) 67.5 ml/min; Glucose 117 mg/dl (70-99); Lipase 76 U/L (73-393); Potassium 4.1 mmol/L (3.5-5.1); Sodium 140 mmol/L (136-145)
[2021-04-16 01:55] LABS: Alkaline Phosphatase 67 U/L (45-117); Bilirubin,Total 0.4 mg/dl (0.2-1); Total Protein 7.9 gm/dl (6.4-8.2)
[2021-04-16] MEDS ORDERED: HYDROmorphone INJ 1 MG/ML SYRINGE IV STA (01:57)
[2021-04-16] MEDS ORDERED: HYDROmorphone INJ 0.5 MG/0.5 ML SYR IV PRN (02:33)
[2021-04-16 03:18] LABS: Appearance Urine Clear (Clear); Bacteria Urine Automated Negative (Negative); Bilirubin Urine Negative (Negative); Blood Urine Negative (Negative); Cast Urine Automated 0 /lpf (0-5); Color Urine Yellow; Glucose Urine UA Negative (Negative); Ketones Urine Negative (Negative); Leukocyte Esterase Urine 2+ (Negative); Nitrite Urine Negative (Negative); Protein Urine Negative (Negative); RBC Urine Automated 0-4 /hpf (0-4); Specific Gravity Urine 1.005 (1.000-1.030); Urobilinogen Urine Negative (Negative); pH Urine 6.5 (4.5-7.5)
[2021-04-16] MEDS ORDERED: LORazepam 0.5 MG/1 ML VIAL IV STA (03:18)
[2021-04-16] MEDS ORDERED: OPTIRAY 320 125ml IV ONE (03:25)
--- NOTE | 2021-04-16 05:23 | History & Physical Report ---
Date of Service April 16, 2021 Assessment & Plan (1) Abdominal pain: Plan: Multifactorial: ? Complicated UTI, no sepsis Possible muscular strain given reproducibility and possible trauma history as per account hx pulmonary embolism status post anticoagulation hyperlipidemia on statin rX seizure disorder, stable anxiety/mood disorder, at baseline gastroparesis as per records OBS GMF Follow urine CS, Zosyn for now until CS back (prior hx Enterococcus on review of outpatient urine CS) Analgesia, caution with additional IV narcotics given excessive sedation post narcotic administration at the ER DVT prophylaxis. Lovenox subcu Full code Patient requesting updates from providers. Mr. Shahab Wong, contact #[phone]. Text document was generated using [employer] voice recognition software. It may contain grammatical or spelling errors. Kindly contact undersigned for clarification of any documentation item in question. History of Present Illness Chief Complaint: Right flank/right groin pain Primary Care Provider: Adalberto Huynh MD History obtained from patient, family, and records. Medical history significant for pulmonary embolism status post anticoagulation, hyperlipidemia, essential tremor, seizure disorder, anxiety/mood disorder, GERD, gastroparesis as per records. Last confinement March 2020 for atypical chest pain. Sudden onset right flank pain with radiation to the right groin last night. Patient denies nausea, vomiting. Patient denies dysuria or change in bowel habits. No fever, no chills. No chest pain, no S OB, no headache. No hematuria. Possible trauma yesterday as per with her right side hitting the door. Intractable discomfort at the ER. MEDICAL HISTORY: As above. SURGICAL HISTORY: Hysterectomy with suspension. Cholecystostomy, cystoscopy, breast lesion excision, vein stripping, cataract surgeries FAMILY HISTORY: There is a family history of heart disease. PERSONAL SOCIAL HISTORY: Nonsmoker. No EtOH intake, house . Allergies Allergy/AdvReac Type Severity Reaction Status Date / Time phenazopyridine Allergy Unknown pruritis Verified 04/16/21 01:17 Sulfa (Sulfonamide Allergy Unknown HIVES Verified 04/16/21 01:17 Antibiotics) domperidone AdvReac Unknown OFF BALANCE Verified 04/16/21 01:17 metoclopramide AdvReac Unknown OFF BALANCE Verified 04/16/21 01:17 Home Medications Medication Instructions Recorded Confirmed Type citalopram 20 mg tablet 20 mg PO QAM 05/31/18 04/16/21 History clonazepam 0.5 mg tablet 0.5 mg PO BID PRN 05/31/18 04/16/21 History gabapentin 100 mg capsule 200 mg PO HS 05/31/18 04/16/21 History lamotrigine 200 mg tablet 400 mg PO BID 05/31/18 04/16/21 History aspirin 81 mg tablet,delayed 81 mg PO QAM 05/27/19 04/16/21 History release (Aspirin Low Dose) pantoprazole 20 mg tablet,delayed 40 mg PO BID 04/02/20 04/16/21 History release rosuvastatin 5 mg tablet 5 mg PO QAM 08/16/20 04/16/21 History vitamin B complex (Complex B-100) 1 tab PO DAILY 01/16/21 04/16/21 History buspirone 10 mg tablet 10 mg PO BID 02/01/21 04/16/21 History Past Med/Surg History Medical History Anxiety Cerda esophagus Chronic kidney disease, stage 2 (mild) Depression GERD (gastroesophageal reflux disease) History of back problems HX BACK SURGERY History of high cholesterol PE (pulmonary embolism) "bilateral 2011, treated with Coumadin in past" Right flank pain, chronic FOR ABOUT A YR,PT DISCUSSED WITH PCP Seizure On Lamictal"NO SEIZURES FOR YEARS AND YEARS" Temporomandibular joint disorder CLICKS BILAT Surgical History H/O colonoscopy H/O esophagogastroduodenoscopy H/O vein stripping History of back surgery History of hysterectomy TOTAL S/P cholecystectomy HX Family History Other Heart disease Ovarian cancer Social History Smoking Status: Never smoker Second Hand Exposure: No; Hx Alcohol Use: No Hx Substance Use: No Preferred Language: Italian Communication Ability: Effective Visual Impairment: No Limitations 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 Required: No Beliefs That Will Affect Care: None Current Living Situation: Spouse Feels Safe at Home: Yes Safety Concerns: Feels Safe At This Time Assistive Devices: Glasses Review of Systems Review of Systems: As per HPI, all 10 systems reviewed, all other ROS negative Physical Exam Physical Exam: GENERAL: uncomfortable, episodic lethargy, no respiratory distress SKIN: Normal color, warm HEENT: Bespectacled, [place] palpebral conjunctivae, no ptosis, dry buccal mucosa NECK : Supple, no tenderness CHEST : CTA, no tenderness HEART : RRR, no obvious murmurs ABDOMEN: Some distention, right groin tenderness EXTREMITIES : No LE swelling/tenderness, no other conspicuous deformities noted NEUROLOGIC : Coherent, episodic lethargy, no facial asymmetry, no other gross focality Results & Data Results & Data ([facility]) Vital Signs (Past 12 Hours) Vital Signs Temp Pulse Pulse Resp BP BP Pulse Ox 04/16/21 03:46 84 18 121/63 98 04/16/21 03:03 88 20 137/67 93 04/16/21 02:36 83 20 121/72 88 L 04/16/21 02:05 87 22 133/63 94 04/16/21 01:45 76 20 114/81 92 04/16/21 01:22 88 20 114/81 98 04/16/21 01:10 36.4 C L 68 20 168/72 H 98 Laboratory Results Laboratory Results WBC 8.87 K/uL (4.8-10.8) 04/16/21 01:20 RBC 4.20 M/uL (4.2-5.4) 04/16/21 01:20 Hgb 13.8 g/dL (12.0-16.0) 04/16/21 01:20 Hct 40.7 % (37-47) 04/16/21 01:20 MCV 96.9 fL (80-100) 04/16/21 01:20 MCH 32.9 pg (25-34) 04/16/21 01:20 MCHC 33.9 g/dL (32-36) 04/16/21 01:20 RDW Std Deviation 46.8 fL (36.4-46.3) H 04/16/21 01:20 RDW Coeff of Bill 13.2 % (11.5-14.5) 04/16/21 01:20 Plt Count 237 K/uL (130-400) 04/16/21 01:20 MPV 9.5 fL (7.4-10.4) 04/16/21 01:20 Immature Gran % (Auto) 0.2 % 04/16/21 01:20 Neut % (Auto) 57.3 % 04/16/21 01:20 Lymph % (Auto) 35.6 % 04/16/21 01:20 [place] % (Auto) 6.8 % 04/16/21 01:20 Eos % (Auto) 0.0 % 04/16/21 01:20 Baso % (Auto) 0.1 % 04/16/21 01:20 Neut # (Auto) 5.08 K/uL (1.4-6.5) 04/16/21 01:20 Lymph # (Auto) 3.16 K/uL (1.2-3.4) 04/16/21 01:20 [place] # (Auto) 0.60 K/uL (0.11-0.59) H 04/16/21 01:20 Eos # (Auto) 0.00 K/uL (0-0.5) 04/16/21 01:20 Baso # (Auto) 0.01 K/uL (0-0.2) 04/16/21 01:20 Immature Gran # (Auto) 0.02 K/uL (0.00-0.02) 04/16/21 01:20 Sodium 140 mmol/L (136-145) 04/16/21 01:20 Potassium 4.1 mmol/L (3.5-5.1) 04/16/21 01:20 Chloride 108 mmol/L (98-107) H 04/16/21 01:20 Carbon Dioxide 24 mmol/L (21-32) 04/16/21 01:20 Anion Gap 7.0 (3-11) 04/16/21 01:20 BUN 13 mg/dl (7-18) 04/16/21 01:20 Creatinine 0.85 mg/dl (0.6-1.2) 04/16/21 01:20 Est Cr Clr Drug Dosing Not Reportable 04/16/21 01:20 Est GFR ( Amer) 78.2 ml/min 04/16/21 01:20 Est GFR (Non-Af Amer) 67.5 ml/min 04/16/21 01:20 BUN/Creatinine Ratio 15.2 (10-20) 04/16/21 01:20 Glucose 117 mg/dl (70-99) H 04/16/21 01:20 Lactate 1.1 mmol/L (0.4-2.0) 04/16/21 03:57 Calcium 10.3 mg/dl (8.5-10.1) H 04/16/21 01:20 Magnesium 2.4 mg/dl (1.8-2.4) 04/16/21 01:20 Total Bilirubin 0.4 mg/dl (0.2-1) 04/16/21 01:20 Direct Bilirubin 0.2 mg/dl (0-0.2) 04/16/21 01:20 AST 16 U/L (15-37) 04/16/21 01:20 ALT 23 U/L (12-78) 04/16/21 01:20 Alkaline Phosphatase 67 U/L (45-117) 04/16/21 01:20 Total Creatine Kinase 72 U/L (26-192) 04/16/21 03:58 Total Protein 7.9 gm/dl (6.4-8.2) 04/16/21 01:20 Albumin 4.2 gm/dl (3.4-5.0) 04/16/21 01:20 Lipase 76 U/L (73-393) 04/16/21 01:20 Urine Color Yellow 04/16/21 03:10 Urine Appearance Clear (Clear) 04/16/21 03:10 Urine pH 6.5 (4.5-7.5) 04/16/21 03:10 Ur Specific Bunch 1.005 (1.000-1.030) 04/16/21 03:10 Urine Protein Negative (Negative) 04/16/21 03:10 Urine Glucose (UA) Negative (Negative) 04/16/21 03:10 Urine Ketones Negative (Negative) 04/16/21 03:10 Urine Blood Negative (Negative) 04/16/21 03:10 Urine Nitrite Negative (Negative) 04/16/21 03:10 Urine Bilirubin Negative (Negative) 04/16/21 03:10 Urine Urobilinogen Negative (Negative) 04/16/21 03:10 Ur Leukocyte Esterase 2+ (Negative) H 04/16/21 03:10 Urine WBC (Auto) 10-30 /hpf (0-5) H 04/16/21 03:10 Urine RBC (Auto) 0-4 /hpf (0-4) 04/16/21 03:10 U Hyaline Cast (Auto) 0 /lpf (0-5) 04/16/21 03:10 U Epithel Cells (Auto) 5-10 /lpf (0-5) H 04/16/21 03:10 Urine Bacteria (Auto) Negative (Negative) 04/16/21 03:10 COVID-19 Eval Order Covid19 at [facility] 04/16/21 05:22 SARS-CoV-2 (PCR) NEGATIVE (Negative) 04/16/21 05:[address] abdomen pelvis noncontrast initial read: Cholecystectomy. Liver, spleen, pancreas, adrenal glands are unremarkable. No hydronephrosis or radiopaque stones. Normal appendix. No bowel obstruction or inflammation. Hysterectomy. Normal urinarybladder. Posterior decompression and posterior osteometallic fusion of the lumbosacral spine. Interbodyfusion at L4-L5. No acute osseous findings CT abdomen pelvis with contrast initial read: CT abdomen pelviswithout contrast performed earlier same day No acute findings. No abdominal aortic aneurysmor dissection. Scattered atherosclerotic calcifications of the abdominal aorta and branch vessels. Redemonstration of multiple additional incidental findings, as previouslydescribed.
[2021-04-16] MEDS ORDERED: PIPERACILL/TAZOBAC CONSULT ACTIVE PRN (05:49)
[2021-04-16] MEDS ORDERED: PIPERACILLIN/TAZOBACTAM 4.5 GM/120 ML BAG IV STA (05:52)
[2021-04-16 06:07] LABS: Magnesium 2.4 mg/dl (1.8-2.4)
[2021-04-16] MEDS ORDERED: KETOROLAC TROMETHAMINE 15 MG/ML VIAL IV PRN (06:09)
[2021-04-16] MEDS ORDERED: ACETAMINOPHEN 325 MG TAB PO PRN (06:09)
[2021-04-16] MEDS ORDERED: clonazePAM 0.5 MG TAB PO PRN (08:13)
[2021-04-16] MEDS: oxyCODONE HCL IR 5 MG TAB (IMMEDIATE RELEASE) PO PRN (09:07)
--- NOTE | 2021-04-16 09:32 | CT Scan Report ---
ABDOMEN AND PELVIS CT WITHOUT CONTRAST; CT DOSE: 402.80 mGy.cm HISTORY: Acute right-sided flank pain acute right flank to RLQ pain TECHNIQUE: Multiaxial CT images of the abdomen and pelvis were performed without contrast. A dose lo wering technique was utilized adhering to the principles of ALARA. COMPARISON STUDY: CTA abdomen and pelvis of same day, CT abdomen and pelvis 11/06/2011, CTA chest 04/02. FINDINGS: Mild coronary artery calcifications. There are a few scattered solid nodules of the lung ba ses including a 4 mm solid nodule of the basal left lower lobe on image 24 which appear unchanged and are likely benign. Mild subsegmental bibasilar atelectasis/scarring. No pneumatosis or pneumoperiton eum. Unenhanced spleen, pancreas, adrenal glands and liver are unremarkable. Cholecystectomy. Unremar kable kidneys. No hydronephrosis. Unremarkable urinary bladder. Surgically absent uterus. Atheroscler osis of the aorta without aneurysm. No adenopathy. No bowel obstruction or bowel wall thickening. Mild colonic diverticulosis. Mild fecal retention. Nor mal appendix. No ascites or mesenteric inflammation. No acute fracture. Demineralized appearance of t he bones. Posterior decompression at L2-L4. Posterior interbody hakan and screw fusion extends from L1- L4 bilateral iliac bolts. L4-L5 discectomy changes with chronic appearing grade 2 anterolisthesis. No evidence of hardware fracture or loosening. Dextroscoliosis of the thoracolumbar junction. IMPRESSION: 1. No acute intra-abdominal or intrapelvic abnormality. 2. Mild colonic diverticulosis. 3. Normal appendix. 4. Cholecystectomy. 5. Additional findings as above. ACT 112: Negative or not required by law. The above report was generated using voice recognition software. It may contain grammatical, syntax o r spelling errors. Electronically signed by: Krystian Parsons M.D. 04/16/2021 9:31 AM
--- NOTE | 2021-04-16 09:50 | CT Scan Report ---
CT angio abdomen pelvis w con CLINICAL HISTORY: 75 years-old Female with intractable right flank pain acute right-sided flank pa in COMPARISON STUDY: CT abdomen and pelvis of same day, CTA chest 04/02/2020 TECHNIQUE: Following the IV administration of 120 cc of Optiray, CT angiogram of the abdomen and pelv is was performed from the lung bases the proximal femora. Images are reviewed in the axial, sagittal, and coronal planes. 3-D MIPS images are created and assessed. All measurements were obtained accordi ng to NASCET criteria. IV contrast was administered without complication. A dose lowering technique was utilized adhering to the principles of ALARA. CT DOSE: 566.05 mGy.cm FINDINGS: CTA: The heart is normal in size. Mild to moderate atherosclerosis of the abdominal aorta and branch vesse ls. No abdominal aortic aneurysm or dissection. No retroperitoneal hematoma. The iliac and imaged fem oral arteries appear patent. The celiac trunk, superior and inferior mesenteric arteries are patent. Calcified plaque at the origin of the inferior mesenteric artery results in at least mild luminal dodie rowing. Atherosclerosis of the origin of the renal arteries without high-grade stenosis. CT ABDOMEN/PELVIS: There are a few scattered solid nodules of the lung bases measure up to 4 mm which appear unchanged a nd are likely benign. Mild subsegmental bibasilar atelectasis/scarring. No pneumatosis or pneumoperit oneum. Unenhanced spleen, pancreas, adrenal glands and liver are unremarkable. Cholecystectomy. Unrem arkable kidneys. Probable cyst of the superior pole left kidney, 9 mm. No hydronephrosis. Unremarkabl e urinary bladder. Surgically absent uterus. There is no adenopathy. No bowel obstruction or bowel wall thickening. Mild colonic diverticulosis. Mild fecal retention. Nor mal appendix. No ascites or mesenteric inflammation. No acute fracture. Demineralized appearance of t he bones. Posterior decompression at L2-L4. Posterior interbody hakan and screw fusion extends from L1- L4 bilateral iliac bolts. L4-L5 discectomy changes with chronic appearing grade 2 anterolisthesis. No evidence of hardware fracture or loosening. Intervertebral disc space narrowing with circumferential annular disc bulge at T12-L1. Dextroscoliosis of the thoracolumbar junction. IMPRESSION: 1. Atherosclerosis of the abdominal aorta and branch vessels without aneurysm, dissection, high-grade stenosis or arterial occlusion. 2. No acute intra-abdominal or intrapelvic abnormality. 3. Incidental findings as above. ACT 112: Negative or not required by law. The above report was generated using voice recognition software. It may contain grammatical, syntax o r spelling errors. Electronically signed by: Krystian Parsons M.D. 04/16/2021 9:49 AM
[2021-04-16] MEDS: ASPIRIN 81 MG ECTAB PO SCH (10:38)
[2021-04-16] MEDS: busPIRone 5 MG TAB PO SCH ×2 (10:38→19:52)
[2021-04-16] MEDS: CITALOPRAM 20 MG TAB PO SCH (10:38)
[2021-04-16] MEDS: lamoTRIgine 100 MG TAB PO SCH ×2 (10:39→19:52)
[2021-04-16] MEDS: ENOXAPARIN INJ 40 MG/0.4 ML SYR SQ SCH (10:39)
[2021-04-16] MEDS: PANTOprazole 40 MG TAB PO SCH ×2 (10:39→19:53)
[2021-04-16] MEDS: VITAMIN B COMPLEX TAB PO SCH (10:40)
[2021-04-16] MEDS: ROSUVASTATIN CALCIUM 5 MG TAB PO SCH (10:40)
[2021-04-16] MEDS: PIPERACILLIN/TAZOBACTAM 3.375 GM in DEXTROSE 5% 100 ML IV SCH ×2 (17:12→19:57)
--- NOTE | 2021-04-16 20:54 | Hospitalist Progress Note ---
Date of Service April 16, 2021 Assessment & Plan (1) Severe right inguinal pain: Plan: 75-year-old lady with PMH of PE [5 years ago] status post anticoagulation for 1 year, UTI 1.5 years ago, fall in June 2020, hyperlipidemia, essential tremor, seizure disorder, GERD and gastroparesis came in with sudden onset right groin/lower belly dull aching 10/10 pain with no radiation, exacerbated by certain movements in the form of jerks, was able to stand on legs and walk. She has been managed for the following: #. Musculoskeletal pain versus UTI Patient had mechanical fall 2 days ago History of Enterococcus UTI in the past Admitting CT abdomen pelvis: No acute pathology Admitting CTA abdomen pelvis: No acute pathology. Atherosclerosis of abdominal aorta and branch vessels without aneurysm, dissection, high-grade stenosis or arterial occlusion noted. Redemonstration of solid nodules of the lung bases measuring up to 4 mm which appear unchanged and are likely benign. UA positive for WBC and leukocyte esterase, follow-up urine culture Patient started on Zosyn Continue with pain medication, likely DC Zosyn after urine culture report. Continue to monitor clinically #. Other chronic medical conditionsanxiety/depression, CAD, GERD, HLD Resumed home medications #. DVT prophylaxis: Lovenox Disposition: PT/OT consulted. Likely needs short-term rehab for strength and ba thalia training. Admission and Anticipated Discharge Date Admission Date: April 16, 2021 Subjective Patient was lying down in bed, NAD, on RA. Patient denies Headache, Dizziness, Fever, Chills, Sore throat, Cough, Chest pain, palpitations, SOB, Belly pain, pain/burning while passing urine. Patient complains of dull aching pain over right groin since yesterday evening. Physical Exam Physical Exam: GENERAL: Alert and oriented x3. NAD, on RA. HEENT: No pallor, no icterus. Pupils equal, round and reactive to light. Oral mucosa moist. NECK: No JVD, no neck masses. HEART: S1 and S2 heard. Regular rate and rhythm. No murmur, no gallop. RESPIRATORY SYSTEM: Normal AP diameter. No accessory muscle use. No wheezing, no crackles. ABDOMEN: Soft, bowel sounds present, nontender, no distention. CENTRAL NERVOUS SYSTEM: Alert and oriented x3. No facial droop. Speech is clear. Obeys simple commands. Moves extremities. EXTREMITIES: No edema, no erythema seen. Distal neurovascular status normal. Inspection and palpation over the right groin area normal, no tenderness. Results & Data Results & Data ([facility]) Vital Signs (Past 12 Hours) Vital Signs Temp Pulse Resp BP BP Pulse Ox 04/16/21 14:47 36.7 C 61 16 121/74 95 04/16/21 13:42 36.8 C 64 16 138/76 98 04/16/21 10:19 70 18 136/81 98 04/16/21 09:04 74 20 118/70 99
[2021-04-16] MEDS ORDERED: GABAPENTIN 100 MG CAP PO SCH (21:00)
[2021-04-17] MEDS: PIPERACILLIN/TAZOBACTAM 3.375 GM in DEXTROSE 5% 100 ML IV SCH ×2 (04:46→13:07)
[2021-04-17 07:26] LABS: Hematocrit (blood only) 36.5 % (37-47); Hemoglobin 11.8 g/dL (12.0-16.0); Immature Granulocytes # (auto) 0.01 K/uL (0.00-0.02); Immature Granulocytes % (auto) 0.2 %; Lymphocytes # (auto) 1.65 K/uL (1.2-3.4); Lymphocytes % (auto) 35.9 %; Mean Corpuscular Hemoglobin 31.6 pg (25-34); Mean Corpuscular Hgb Conc 32.3 g/dL (32-36); Mean Corpuscular Volume 97.9 fL (80-100); Mean Platelet Volume 9.5 fL (7.4-10.4); Monocytes # (auto) 0.31 K/uL (0.11-0.59); Monocytes % (auto) 6.8 %; Neutrophils # (auto) 2.62 K/uL (1.4-6.5); Neutrophils % (auto) 57.1 %; Platelet Count 174 K/uL (130-400); RDW Coefficient of Variation 13.3 % (11.5-14.5); RDW Standard Deviation 47.7 fL (36.4-46.3); Red Blood Count 3.73 M/uL (4.2-5.4); White Blood Count 4.59 K/uL (4.8-10.8)
[2021-04-17 08:05] LABS: BUN Creatinine Ratio 9.1 (10-20); Calcium 9.1 mg/dl (8.5-10.1); Est GFR (African American) 86.8 ml/min; Est GFR (Non-African American) 74.9 ml/min
[2021-04-17] MEDS: VITAMIN B COMPLEX TAB PO SCH (08:48)
[2021-04-17] MEDS: CITALOPRAM 20 MG TAB PO SCH (08:49)
[2021-04-17] MEDS: ROSUVASTATIN CALCIUM 5 MG TAB PO SCH (08:49)
[2021-04-17] MEDS: lamoTRIgine 100 MG TAB PO SCH (08:49)
[2021-04-17] MEDS: ENOXAPARIN INJ 40 MG/0.4 ML SYR SQ SCH (08:50)
[2021-04-17] MEDS: PANTOprazole 40 MG TAB PO SCH (08:50)
[2021-04-17] MEDS: oxyCODONE HCL IR 5 MG TAB (IMMEDIATE RELEASE) PO PRN (08:57)
[2021-04-17] MEDS: ASPIRIN 81 MG ECTAB PO SCH (10:32)
[2021-04-17] MEDS: busPIRone 5 MG TAB PO SCH (10:32)
--- NOTE | 2021-04-22 00:50 | Discharge Summary ---
Date of Service April 17, 2021 Admission HPI Per Admitting Provider History obtained from patient, family, and records. Medical history significant for pulmonary embolism status post anticoagulation, hyperlipidemia, essential tremor, seizure disorder, anxiety/mood disorder, GERD, gastroparesis as per records. Last confinement March 2020 for atypical chest pain. Sudden onset right flank pain with radiation to the right groin last night. Patient denies nausea, vomiting. Patient denies dysuria or change in bowel habits. No fever, no chills. No chest pain, no S OB, no headache. No hematuria. Possible trauma yesterday as per with her right side hitting the door. Intractable discomfort at the ER. MEDICAL HISTORY: As above. SURGICAL HISTORY: Hysterectomy with suspension. Cholecystostomy, cystoscopy, breast lesion excision, vein stripping, cataract surgeries FAMILY HISTORY: There is a family history of heart disease. PERSONAL SOCIAL HISTORY: Nonsmoker. No EtOH intake, house . Admission Exam Per Admitting Provider GENERAL: uncomfortable, episodic lethargy, no respiratory distress SKIN: Normal color, warm HEENT: Bespectacled, [place] palpebral conjunctivae, no ptosis, dry buccal mucosa NECK : Supple, no tenderness CHEST : CTA, no tenderness HEART : RRR, no obvious murmurs ABDOMEN: Some distention, right groin tenderness EXTREMITIES : No LE swelling/tenderness, no other conspicuous deformities noted NEUROLOGIC : Coherent, episodic lethargy, no facial asymmetry, no other gross focality Principal Diagnosis Right lower abdominal pain, likely musculoskeletal Discharge Exam CONSTITUTIONAL: WNWD, vitals as above, generally well-appearing EYES: normal conjunctivae, no scleral icterus ENT: external ear and nose normal, MMM RESPIRATORY: clear to auscultation bilaterally, no crackles, rales or wheezes, normal respiratory effort CARDIOVASCULAR: regular rate and rhythm, S1 and 2 heard without murmurs, gallops or rubs, no JVD, no peripheral edema GASTROINTESTINAL: soft, TTP in RLQ, nondistended. MUSCULOSKELETAL: strength 5/5 throughout, head is normocephalic and atraumatic, ambulatory SKIN: warm and dry NEUROLOGIC: CN 2-12 grossly intact, normal cognition, normal speech, no tremor PSYCHIATRIC: alert cooperative and oriented to person, place and time. Discharge Data Allergies Allergy/AdvReac Type Severity Reaction Status Date / Time phenazopyridine Allergy Unknown pruritis Verified 04/16/21 01:17 Sulfa (Sulfonamide Allergy Unknown HIVES Verified 04/16/21 01:17 Antibiotics) domperidone AdvReac Unknown OFF BALANCE Verified 04/16/21 01:17 metoclopramide AdvReac Unknown OFF BALANCE Verified 04/16/21 01:17 Consultations 04/16/21 04:43 ED Decision to Admit Stat Ordered Studies Laboratory Results WBC 4.59 K/uL (4.8-10.8) L 04/17/21 06:53 RBC 3.73 M/uL (4.2-5.4) L 04/17/21 06:53 Hgb 11.8 g/dL (12.0-16.0) L 04/17/21 06:53 Hct 36.5 % (37-47) L 04/17/21 06:53 MCV 97.9 fL (80-100) 04/17/21 06:53 MCH 31.6 pg (25-34) 04/17/21 06:53 MCHC 32.3 g/dL (32-36) 04/17/21 06:53 RDW Std Deviation 47.7 fL (36.4-46.3) H 04/17/21 06:53 RDW Coeff of Bill 13.3 % (11.5-14.5) 04/17/21 06:53 Plt Count 174 K/uL (130-400) 04/17/21 06:53 MPV 9.5 fL (7.4-10.4) 04/17/21 06:53 Immature Gran % (Auto) 0.2 % 04/17/21 06:53 Neut % (Auto) 57.1 % 04/17/21 06:53 Lymph % (Auto) 35.9 % 04/17/21 06:53 Cooper % (Auto) 6.8 % 04/17/21 06:53 Eos % (Auto) 0.0 % 04/17/21 06:53 Baso % (Auto) 0.0 % 04/17/21 06:53 Neut # (Auto) 2.62 K/uL (1.4-6.5) 04/17/21 06:53 Lymph # (Auto) 1.65 K/uL (1.2-3.4) 04/17/21 06:53 Cooper # (Auto) 0.31 K/uL (0.11-0.59) 04/17/21 06:53 Eos # (Auto) 0.00 K/uL (0-0.5) 04/17/21 06:53 Baso # (Auto) 0.00 K/uL (0-0.2) 04/17/21 06:53 Immature Gran # (Auto) 0.01 K/uL (0.00-0.02) 04/17/21 06:53 Sodium 139 mmol/L (136-145) 04/17/21 06:53 Potassium 4.0 mmol/L (3.5-5.1) 04/17/21 06:53 Chloride 109 mmol/L (98-107) H 04/17/21 06:53 Carbon Dioxide 29 mmol/L (21-32) 04/17/21 06:53 Anion Gap 1.0 (3-11) L 04/17/21 06:53 BUN 7 mg/dl (7-18) D 04/17/21 06:53 Creatinine 0.78 mg/dl (0.6-1.2) 04/17/21 06:53 Est Cr Clr Drug Dosing 65.0 ml/min 04/17/21 06:53 Est GFR ( Amer) 86.8 ml/min 04/17/21 06:53 Est GFR (Non-Af Amer) 74.9 ml/min 04/17/21 06:53 BUN/Creatinine Ratio 9.1 (10-20) L 04/17/21 06:53 Glucose 88 mg/dl (70-99) 04/17/21 06:53 Lactate 1.1 mmol/L (0.4-2.0) 04/16/21 03:57 Calcium 9.1 mg/dl (8.5-10.1) 04/17/21 06:53 Magnesium 2.4 mg/dl (1.8-2.4) 04/16/21 01:20 Total Bilirubin 0.4 mg/dl (0.2-1) 04/16/21 01:20 Direct Bilirubin 0.2 mg/dl (0-0.2) 04/16/21 01:20 AST 16 U/L (15-37) 04/16/21 01:20 ALT 23 U/L (12-78) 04/16/21 01:20 Alkaline Phosphatase 67 U/L (45-117) 04/16/21 01:20 Total Creatine Kinase 72 U/L (26-192) 04/16/21 03:58 Total Protein 7.9 gm/dl (6.4-8.2) 04/16/21 01:20 Albumin 4.2 gm/dl (3.4-5.0) 04/16/21 01:20 Lipase 76 U/L (73-393) 04/16/21 01:20 Urine Color Yellow 04/16/21 03:10 Urine Appearance Clear (Clear) 04/16/21 03:10 Urine pH 6.5 (4.5-7.5) 04/16/21 03:10 Ur Specific [place] 1.005 (1.000-1.030) 04/16/21 03:10 Urine Protein Negative (Negative) 04/16/21 03:10 Urine Glucose (UA) Negative (Negative) 04/16/21 03:10 Urine Ketones Negative (Negative) 04/16/21 03:10 Urine Blood Negative (Negative) 04/16/21 03:10 Urine Nitrite Negative (Negative) 04/16/21 03:10 Urine Bilirubin Negative (Negative) 04/16/21 03:10 Urine Urobilinogen Negative (Negative) 04/16/21 03:10 Ur Leukocyte Esterase 2+ (Negative) H 04/16/21 03:10 Urine WBC (Auto) 10-30 /hpf (0-5) H 04/16/21 03:10 Urine RBC (Auto) 0-4 /hpf (0-4) 04/16/21 03:10 U Hyaline Cast (Auto) 0 /lpf (0-5) 04/16/21 03:10 U Epithel Cells (Auto) 5-10 /lpf (0-5) H 04/16/21 03:10 Urine Bacteria (Auto) Negative (Negative) 04/16/21 03:10 COVID-19 Eval Order Covid19 at [facility] 04/16/21 05:22 SARS-CoV-2 (PCR) NEGATIVE (Negative) 04/16/21 05:22 Hepatitis C Ab Screen Neg (Neg) 04/16/21 01:20 Impressions Abdomen/Pelvis CT 04/16/21 01:[address] WITHOUT CONTRAST; CT DOSE: 402.80 mGy.cm HISTORY: Acute right-sided flank pain acute right flank to RLQ pain TECHNIQUE: Multiaxial CT images of the abdomen and pelvis were performed without contrast. A dose lowering technique was utilized adhering to the principles of ALARA. COMPARISON STUDY: CTA abdomen and pelvis of same day, CT abdomen and pelvis 11/06/2011, CTA chest 04/02/2020. FINDINGS: Mild coronary artery calcifications. There are a few scattered solid nodules of the lung bases including a 4 mm solid nodule of the basal left lower lobe on image 24 which appear unchanged and are likely benign. Mild subsegmental bibasilar atelectasis/scarring. No pneumatosis or pneumoperitoneum. Unenhanced spleen, pancreas, adrenal glands and liver are unremarkable. Cholecystectomy. Unremarkable kidneys. No hydronephrosis. Unremarkable urinary bladder. Surgically absent uterus. Atherosclerosis of the aorta without aneurysm. No adenopathy. No bowel obstruction or bowel wall thickening. Mild colonic diverticulosis. Mild fecal retention. Normal appendix. No ascites or mesenteric inflammation. No acute fracture. Demineralized appearance of the bones. Posterior decompression at L2-L4. Posterior interbody hakan and screw fusion extends from L1-L4 bilateral iliac bolts. L4-L5 discectomy changes with chronic appearing grade 2 anterolisthesis. No evidence of hardware fracture or loosening. Dextroscoliosis of the thoracolumbar junction. IMPRESSION: 1. No acute intra-abdominal or intrapelvic abnormality. 2. Mild colonic diverticulosis. 3. Normal appendix. 4. Cholecystectomy. 5. Additional findings as above. ACT 112: Negative or not required by law. The above report was generated using voice recognition software. It may contain grammatical, syntax or spelling errors. Electronically signed by: Krystian Parsons M.D. 04/16/2021 9:31 AM Abdomen/Pelvis CTA 04/16/21 03:18 CT angio abdomen pelvis w con CLINICAL HISTORY: 75 years-old Female with intractable right flank pain acute right-sided flank pain COMPARISON STUDY: CT abdomen and pelvis of same day, CTA chest 04/02/2020 TECHNIQUE: Following the IV administration of 120 cc of Optiray, CT angiogram of the abdomen and pelvis was performed from the lung bases the proximal femora. Images are reviewed in the axial, sagittal, and coronal planes. 3-D MIPS images are created and assessed. All measurements were obtained according to NASCET criteria. IV contrast was administered without complication. A dose lowering technique was utilized adhering to the principles of ALARA. CT DOSE: 566.05 mGy.cm FINDINGS: CTA: The heart is normal in size. Mild to moderate atherosclerosis of the abdominal aorta and branch vessels. No abdominal aortic aneurysm or dissection. No retroperitoneal hematoma. The iliac and imaged femoral arteries appear patent. The celiac trunk, superior and inferior mesenteric arteries are patent. Calcified plaque at the origin of the inferior mesenteric artery results in at least mild luminal narrowing. Atherosclerosis of the origin of the renal arteries without high-grade stenosis. CT ABDOMEN/PELVIS: There are a few scattered solid nodules of the lung bases measure up to 4 mm which appear unchanged and are likely benign. Mild subsegmental bibasilar atelectasis/scarring. No pneumatosis or pneumoperitoneum. Unenhanced spleen, pancreas, adrenal glands and liver are unremarkable. Cholecystectomy. Unremarkable kidneys. Probable cyst of the superior pole left kidney, 9 mm. No hydronephrosis. Unremarkable urinary bladder. Surgically absent uterus. There is no adenopathy. No bowel obstruction or bowel wall thickening. Mild colonic diverticulosis. Mild fecal retention. Normal appendix. No ascites or mesenteric inflammation. No acute fracture. Demineralized appearance of the bones. Posterior decompression at L2-L4. Posterior interbody hakan and screw fusion extends from L1-L4 bilateral iliac bolts. L4-L5 discectomy changes with chronic appearing grade 2 anterolisthesis. No evidence of hardware fracture or loosening. Intervertebral disc space narrowing with circumferential annular disc bulge at T12-L1. Dextroscoliosis of the thoracolumbar junction. IMPRESSION: 1. Atherosclerosis of the abdominal aorta and branch vessels without aneurysm, dissection, high-grade stenosis or arterial occlusion. 2. No acute intra-abdominal or intrapelvic abnormality. 3. Incidental findings as above. ACT 112: Negative or not required by law. The above report was generated using voice recognition software. It may contain grammatical, syntax or spelling errors. Electronically signed by: Krystian Parsons M.D. 04/16/2021 9:49 AM Hospital Course (1) Right lower quadrant abdominal pain: The patient was a 75-year-old female who presented with sudden onset right flank pain with radiation to the right groin over the last couple of days. She reported catching her foot and hyperextending her right hip while ambulating across her home threshold just prior to onset of pain. Per reports she hit the door with the right side of her body, also. She notably had intractable discomfort in the ER. Abdomen was tender to palpation. CT abdomen pelvis without contrast revealed evidence of prior cholecystectomy, unremarkable liver, spleen, pancreas, adrenal glands. There was no hydronephrosis or radiopaque stones, appendix was normal, no evidence of bowel obstruction or inflammation, status post hysterectomy, history of posterior decompression and posterior osteometallic fusion of the lumbosacral spine with interbody fusion at L4-L5 and no acute osseous findings. An additional CT abdomen pelvis with contrast was performed revealing no abdominal aortic aneurysm or dissection with scattered atherosclerotic calcifications of the abdominal aorta and branch vessels. She was started on Zosyn pending urine culture which ultimately came back clear. Analgesia was given and she improved the following day. After reviewing sequence of events with her, it was apparent the misstep across her threshold was the likely culprit in instigating her pain. She did notably have a drop in hemoglobin from 13.8-11.8, however, this was thought likely secondary to a delusional effect as all cell lines went down with IV fluid administration. She was not symptomatic from an anemia standpoint. Otherwise, BMP was normal. She was ambulating closer to her baseline the following day.. Physical therapy evaluated her and recommended returning home. Close primary care follow-up is recommended to ensure complete resolution of pain after discharge from the hospital and to consider repeat CBC given delusional anemia noted on hospital day 2. She verbalized understanding with intent to comply. Daughter was at bedside and agreed with the plan. Total Time Total Time Spent Total Time Spent (In Minutes): 60 Discharge Plan Discharge Items Patient Disposition: Home - Self-Care Reason For Visit: RT ABD PAIN Discharge Diagnosis: Right lower abdominal pain likely musculoskeletal in nature. Improved Condition on Discharge: Good Activity: Resume your previous activity Non-emergency contact: Primary Care Provider Call non-emergency contact if: you have any medication questions, your symptoms worsen, your pain is not controlled, your pain is worsening and your pain is unusual for you Follow-up/Referrals: Adalberto Huynh MD [Primary Care Provider] - Diet: Regular Addtl Attending Provider Instructions: Please take all medications as instructed on discharge list below. It is recommended that you continue taking scheduled Tylenol (acetaminophen) 1000mg every 8 hours for the next few days as long as you have pain. You have oxycodone for breakthrough pain that is severe. I would recommend using Ibuprofen for breakthrough pain first though. Both are being provided. As a precaution, please do not mix the clonazepam with oxycodone as they can interact. Separate taking these by at least 4-6 hours if needing to use both. Do not use alcohol while taking either of these medications. It is recommended that you follow-up with your primary care physician within one week of hospital discharge. This appointment will be important to recheck your abdomen and ensure your pain is improved, also to recheck you blood count which was mildly low on day of discharge. It was a pleasure taking care of you! Please call if you have any questions or problems. You can reach a [facility] hospitalist on duty at [facility] 24 hours a day by calling [phone]. Take care of yourself. Krystle Franco, [place] Hospitalist Pending Studies at Discharge: No Stand-Alone Forms: My [facility] Medications and DC Order Prescriptions: New oxycodone 5 mg Tablet 5 mg PO Q4H PRN (Reason: severe pain ) Qty: 10 RF: 0 ibuprofen 600 mg tablet 600 mg PO Q8H PRN (Reason: mild to moderate pain) Qty: 20 RF: 0 Continued lamotrigine 200 mg tablet 400 mg PO BID RF: 0 clonazepam 0.5 mg tablet 0.5 mg PO BID PRN (Reason: Anxiety) RF: 0 citalopram 20 mg Tablet 20 mg PO QAM RF: 0 gabapentin 100 mg capsule 200 mg PO HS RF: 0 rosuvastatin 5 mg tablet 5 mg PO QAM RF: 0 aspirin [Aspirin Low Dose] 81 mg Tablet,Delayed Release (Dr/Ec) 81 mg PO QAM RF: 0 pantoprazole 20 mg tablet,delayed release (DR/EC) 40 mg PO BID RF: 0 Complex B-100 Tablet Extended Release 1 tab PO DAILY RF: 0 buspirone 10 mg tablet 10 mg PO BID RF: 0 Discharge Orders: Discharge Order (Routine); Ordered 04/17/21 Ordered By: Krystle Rubio/Other Patient Handouts: Abdominal Pain Admission Data Admit Date/Time: 04/16/21 06:29 Attending Provider: Krystle Franco Admit Provider: Daivd Christy Primary Care Provider: Adalberto Huynh Other Providers: David Christy Other Interventions: Discharge Summary Assessment (RN) Last Done: 04/17/21 18:05
== END 2021-04-17 18:44 | disposition home or self-care (01) ==
LOC: ED 00:15 → EDINP 00:15 → SUATTDRO 06:29 → 3W 07:02

== ENCOUNTER 2022-04-03 06:54 | Observation (INO) ==
--- NOTE | 2022-03-07 16:28 | PAT Medication Instructions ---
Medication Instructions Date of Service March 07, 2022 Home Medications citalopram 20 mg tablet 20 mg PO QAM clonazepam 0.5 mg tablet 0.5 mg PO BID PRN lamotrigine 200 mg tablet 400 mg PO BID pantoprazole 20 mg tablet,delayed release 20 mg PO BID rosuvastatin 5 mg tablet 5 mg PO QAM vitamin B complex (Complex B-100) 1 tab PO QAM buspirone 10 mg tablet 10 mg PO BID DO NOT take the morning of surgery vitamin B complex (Complex B-100) 1 tab PO QAM Take morning of surgery With a small sip of water, OTHERWISE NOTHING TO EAT OR DRINK AFTER MIDNIGHT: citalopram 20 mg tablet 20 mg PO QAM clonazepam 0.5 mg tablet 0.5 mg PO BID PRN (if needed) lamotrigine 200 mg tablet 400 mg PO BID buspirone 10 mg tablet 10 mg PO BID Take evening before surgery clonazepam 0.5 mg tablet 0.5 mg PO BID PRN (if needed) lamotrigine 200 mg tablet 400 mg PO BID pantoprazole 20 mg tablet,delayed release 20 mg PO BID buspirone 10 mg tablet 10 mg PO BID Other Notes If you have any questions please call us at [phone] or [phone] or [phone] or [phone]
--- NOTE | 2022-03-11 09:18 | Anesthesiology Consultation ---
Date of Service March 11, 2022 Assessment & Plan (1) Encounter for pre-operative examination: - COVID screening: Per assessment on 03/11: No known COVID-19 positive contacts or current COVID-19 related symptoms. Travel screen negative. Surgeon arranging preop COVID testing. Awaiting results. - S/P Lap cholecystectomy (02/15/19): Grade 2 view, MAC 3.0, ETT 7.0 at [facility]. No issues noted per post-op anesthesia progress note. Chart Review Chart Review: Acceptable Risk for Surgery and Patient seen in Pre Admission Testing Teaching & Discussion Pre-Anesthesia Teaching/Discussion Notes: Instructed NPO after midnight before surgery,except medications with 15 cc of water. Medication instructions provided according to the PAT guidelines. History Surgery Operation Date: 04/03/22 07:00 Proposed Procedures p Left Reverse Total Shoulder Arthroplasty - Cruz Farmer M.D. Height/Weight Height: 5 ft 5 in Weight: 79.1 kg Allergies Allergy/AdvReac Type Severity Reaction Status Date / Time phenazopyridine Allergy Unknown Pruritis Verified 03/10/22 10:11 Sulfa (Sulfonamide Allergy Unknown Hives Verified 03/10/22 10:11 Antibiotics) domperidone AdvReac Unknown Balance Verified 03/10/22 10:11 issues metoclopramide AdvReac Unknown Balance Verified 03/10/22 10:11 issues Medications Home Medications Medication Instructions Recorded Confirmed Last Taken citalopram 20 mg tablet 20 mg PO QAM 05/31/18 03/07/22 04/15/21 clonazepam 0.5 mg tablet 0.5 mg PO BID PRN 05/31/18 03/07/22 04/02/20 06:00 0.5mg lamotrigine 200 mg tablet 400 mg PO BID 05/31/18 03/07/22 04/15/21 08:00 pantoprazole 20 mg tablet,delayed 20 mg PO BID 04/02/20 03/07/22 04/15/21 release rosuvastatin 5 mg tablet 5 mg PO QAM 08/16/20 03/07/22 04/15/21 vitamin B complex (Complex B-100) 1 tab PO QAM 01/16/21 03/07/22 04/15/21 buspirone 10 mg tablet 10 mg PO BID 02/01/21 03/07/22 04/15/21 Past Medical History Medical History Anxiety Cerda esophagus Chronic kidney disease Stage III Depression GERD (gastroesophageal reflux disease) History of COVID-19 Dx 2019, mild symptoms History of high cholesterol Left flank pain, chronic Following with PCP and possibly PT Pain worsens with laying flat or on left side PE (pulmonary embolism) B/L 2011, previously on coumadin Seizure Reason for Lamictal Seizure free for many years Temporomandibular joint disorder + clicking, + locking 10/2021 at dentist (unlocked with massage) Exercise / Class Metabolic Activity III < 4 Walking/Shop/Light housework (one FS (no CP, + SOB)) Past Family History Family History Other Heart disease No family history of adverse response to anesthesia Ovarian cancer Past Surgical History Surgical History H/O colonoscopy H/O esophagogastroduodenoscopy H/O vein stripping History of back surgery Thoracic/lumbar History of hysterectomy Total S/P cholecystectomy Lap cholecystectomy (02/15/19): Grade 2 view, MAC 3.0, ETT 7.0 at [facility]. No issues noted per post-op anesthesia progress note. Past Anesthesia History No Hx of Anesthesia Complications and No Family Hx of Anesthesia Complications History of PONV No Hx of PONV and No Hx of Motion Sickness Social History Smoking Status: Never smoker Do You Dip or Chew Tobacco: No Hx Alcohol Use: No Hx Substance Use: No substance use type: does not use Review of Systems Patient denies chest pain, shortness of breath, fever, chills, cough, wheezing, palpitations. Physical Exam Vital Signs VITALS BP 112/71 P 80 TEMP 98.5 SP02 96%RA RESP 16 PHYSICAL Mildly decreased cervical extension range of motion. Full TMJ range of motion. TMD 4 finger breaths Mallampati Score 1 Dentition: lower partial Lungs: clear throughout to auscultation Cardiac: regular rate and rhythm, no murmurs noted Spine: normal Carotid arteries: negative bruit Extremities: no edema Lab Results Anesthesia Preop Results Results Anesthesia Widget: WBC 5.02 K/uL (4.8-10.8) 03/11/22 Hgb 12.9 g/dL (12.0-16.0) 03/11/22 Hct 40.1 % (37-47) 03/11/22 Plt 205 K/uL (130-400) 03/11/22 Na 141 mmol/L (136-145) 03/11/22 K 4.4 mmol/L (3.5-5.1) 03/11/22 Cl 107 mmol/L (98-107) 03/11/22 CO2 29 mmol/L (21-32) 03/11/22 BUN 17 mg/dl (6-23) 03/11/22 Creat 0.93 mg/dl (0.6-1.2) 03/11/22 Glucose Level 93 mg/dl (70-99(Fasting)) 03/11/22 PT 10.3 Seconds (9.0-12.0) 03/11/22 PTT 25.7 Seconds (21.0-31.0) 03/11/22 INR 1.0 (0.9-1.1) 03/11/22 HA1c 5.3 % (4.5-5.6) 03/11/22 Blood Type A Positive 03/11/22 Antibody Screen NEGATIVE 03/11/22 Testing Laboratory Results 02/17/22 UA negative Electrocardiogram Date: 07/24/21 Findings: + NSR @ (69) Chest X-Ray Date: 03/11/22 FINDINGS: The cardiomediastinal and hilar silhouettes are within normal limits. No pneumothorax, pleural effusion, airspace consolidation or overt pulmonary edema. Mild linear subsegmental atelectasis versus scarring of the lateral left lung base. Lumbar spinal fusion hardware. Cholecystectomy. Degenerative changes of the shoulders and spine. IMPRESSION: No acute process. Stress Test Date: 04/03/20 Type: DSE Nonischemic DSE. No inducible arrhythmias. Mild concentric LVH. EF 55-60%. Grade 2 diastolic dysfunction. No significant valvular disease.
--- NOTE | 2022-04-02 15:19 | History & Physical Report ---
Date of Service April 02, 2022 Assessment & Plan (1) Primary osteoarthritis, left shoulder: Plan: She again has severe left shoulder glenohumeral joint arthritis. This does look like primary glenohumeral joint arthritis on x-ray, and rotator cuff strength is well-maintained on exam. We again discussed further conservative treatment with a repeat shoulder joint steroid injection versus definitive surgical intervention with a total shoulder arthroplasty. She and her have decided they would like to proceed with shoulder replacement surgery, I think is very reasonable. We again discussed anatomic versus reverse total shoulder arthroplasty, and discussed differences in long-term function and activity restrictions with both of these procedures. I demonstrated the difference for them on our model today. Her MRI does show diffuse thinning and partial- thickness tearing of her rotator cuff with some diffuse atrophy of the rotator cuff muscle bellies. We discussed all this at great length today. I am concerned that if we proceeded with an anatomic total shoulder replacement, she may rupture her rotator cuff in the future and require a revision to a reverse. After extensive discussion, we mutually decided that initial treatment with a reverse total shoulder would be an overall better option for her. We will get that set up. This will need to be after March 17 since she recently had an injection on December 16. Risks, benefits, and alternatives of surgery were explained in detail. The surgical procedure, as well as postoperative recovery and rehabilitation, was also explained in detail. Risks include bleeding; infection; damage to surrounding structures such as nerves, blood vessels, and tendons that run in the area; persistent pain or stiffness; hardware failure; dislocation; brachial plexus palsy; blood clots; or need for further surgery. The patient understands all of this and wishes to proceed with surgery. Preoperative workup was completed today, and informed consent was obtained. History of Present Illness Chief Complaint: Left shoulder pain and stiffness Primary Care Provider: Adalberto Huynh MD Ms. Marvin rehman. Again, she is a 76-year-old kyiaf-clzy-dipzgadj female with chronic progressive left shoulder pain and stiffness related to glenohumeral joint arthritis. This has been going on for at least a year with gradual progressive worsening. She has noted a significant loss of motion over time. The pain is now waking her up at night. She did have a steroid injection in her shoulder in January 2021 by another provider, but did not note any significant improvement with that injection. She denies any injury. I initially saw her in August 2021 and gave her a glenohumeral joint steroid injection. She noted marked improvement in her pain with that injection, and it lasted several months. I repeated the injection in early December, but this 1 did not give her nearly the same level relief. She really did not notice a lot of relief with that injection. Allergies Allergy/AdvReac Type Severity Reaction Status Date / Time phenazopyridine Allergy Unknown Pruritis Verified 03/10/22 10:11 Sulfa (Sulfonamide Allergy Unknown Hives Verified 03/10/22 10:11 Antibiotics) domperidone AdvReac Unknown Balance Verified 03/10/22 10:11 issues metoclopramide AdvReac Unknown Balance Verified 03/10/22 10:11 issues Home Medications Medication Instructions Recorded Confirmed Type citalopram 20 mg tablet 20 mg PO QAM 05/31/18 03/07/22 History clonazepam 0.5 mg tablet 0.5 mg PO BID PRN Anxiety 05/31/18 03/07/22 History lamotrigine 200 mg tablet 400 mg PO BID 05/31/18 03/07/22 History pantoprazole 20 mg tablet,delayed 20 mg PO BID 04/02/20 03/07/22 History release rosuvastatin 5 mg tablet 5 mg PO QAM 08/16/20 03/07/22 History vitamin B complex (Complex B-100) 1 tab PO QAM 01/16/21 03/07/22 History buspirone 10 mg tablet 10 mg PO BID 02/01/21 03/07/22 History Past Med/Surg History Medical History Anxiety Cerda esophagus Chronic kidney disease Stage III Depression GERD (gastroesophageal reflux disease) History of COVID-19 Dx 2019, mild symptoms History of high cholesterol Left flank pain, chronic Following with PCP and possibly PT Pain worsens with laying flat or on left side PE (pulmonary embolism) B/L 2011, previously on coumadin Seizure Reason for Lamictal Seizure free for many 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 No issues noted per post-op anesthesia progress note. Family History Other Heart disease No family history of adverse response to anesthesia Ovarian cancer Social History Smoking Status: Never smoker Second Hand Exposure: No; Hx Alcohol Use: No Hx Substance Use: No Preferred Language: [place] Citizen Communication Ability: Effective Visual Impairment: No Limitations Check Clerk Required: No Beliefs That Will Affect Care: None Current Living Situation: Spouse Feels Safe at Home: Yes Assistive Devices: Glasses Physical Exam Physical Exam: Examination of the left shoulder shows fairly severe limitation in shoulder range of motion due to pain, with palpable crepitus during motion. She can only actively abduct up to about 70 degrees, external rotation to 10 degrees, and internal rotation to the PSIS level. Rotator cuff strength is well- maintained. Results & Data ([facility]) Diagnostic Findings Previous x-rays of the left shoulder from December 2020 were reviewed. They show severe arthritis of the glenohumeral joint with complete loss of the joint space and large inferior humeral head osteophyte formation. No obvious proximal migration humeral head. However on the axillary view, there is significant posterior glenoid wear. New MRI of the left shoulder obtained this morning was reviewed. A lot of the sequences are dramatically limited by motion artifact. However, it looks like overall her rotator cuff is largely intact. There is a a significant amount of diffuse thinning of the rotator cuff tendon, as well as some areas of partial- thickness tearing. In particular, at the anterior aspect of the supraspinatus, there is a fairly large enthesophyte at the greater tuberosity insertion. Overall mild fatty atrophy of multiple rotator cuff muscle bellies.
[~2022-04-03 06:54] MED LIST changes: +ACETAMINOPHEN 500 MG TAB PO SCH; -CLX20 PO; -CYAN100020 PO; +FAMOTIDINE 20 MG TAB PO SCH; +GABAPENTIN 300 MG CAP PO SCH; -KLN/5 PO; -LACT1CAP6 PO; -LAMO200T35 PO; +LR 15ML/HR IV SCH; +METOCLOPRAMIDE HCL 10 MG TABLET PO SCH; -MULT-506 PO; -PRED10TA PO; -RANI150T85 PO; +TRANEXAMIC ACID 1,000 MG **IV Pre-op IV SCH; +ceFAZolin 2000MG 2,000 MG/15 ML SYR IV SCH; +dexAMETHasone 4 MG TAB PO SCH
[2022-04-03] MEDS ORDERED: BUPIVACAINE 0.5 % 5 MG/1 ML PF 10ML VIAL ONE (08:07)
[2022-04-03] MEDS ORDERED: fentaNYL citrate 100 MCG/2 ML VIAL ONE (09:22)
[2022-04-03] MEDS ORDERED: MIDAZOLAM HCL 1 MG/ML 2ML VIAL ONE (09:22)
[2022-04-03] MEDS ORDERED: LIDOCAINE 2% 2 ML VIAL/AMP(20MG/ML) INFIL ONE (09:22)
[2022-04-03] MEDS ORDERED: PROPOFOL IV EMULSION 10 MG/ML 20 ML VIAL IV ONE (09:22)
--- NOTE | 2022-04-03 09:29 | History & Physical Bridge Note ---
Date of Service April 03, 2022 History & Physical Bridge Note I have examined the patient, reviewed the History & Physical and in the interval since the performance of the History & Physical I have noted the following changes of clinical significance: no changes noted
[2022-04-03] MEDS ORDERED: SUCCINYLCHOLINE CHLORIDE 20 MG/ML 10 ML VIAL IV ONE (09:41)
[2022-04-03] MEDS ORDERED: ONDANSETRON INJ 2 MG/ML 2 ML VIAL ONE (10:22)
[2022-04-03] MEDS ORDERED: DEXAMETHASONE SOD INJ 4 MG/ML VIAL ONE (10:22)
[2022-04-03] MEDS ORDERED: ePHEDrine sulfate 50 MG/ML AMP ONE (11:07)
[2022-04-03] MEDS ORDERED: FLUMAZENIL 0.1 MG/1 ML 10 ML VIAL IV PRN (11:20)
[2022-04-03] MEDS ORDERED: NALOXONE HCL 0.4 MG/1 ML VIAL/CARP IV PRN ×2 (11:20→13:20)
[2022-04-03] MEDS ORDERED: ATROPINE SULFATE 0.1 MG/ML 10ML SYR IV PRN (11:20)
[2022-04-03] MEDS ORDERED: ePHEDrine sulfate 50 MG/ML AMP IV PRN (11:20)
[2022-04-03] MEDS ORDERED: PROMETHAZINE HCL 12.5 MG in SODIUM CHLORIDE 0.9% 50 ML IV PRN (11:20)
[2022-04-03] MEDS ORDERED: HYDROmorphone INJ 1 MG/ML SYRINGE IV PRN (11:20)
[2022-04-03] MEDS ORDERED: ONDANSETRON INJ 2 MG/ML 2 ML VIAL IV PRN ×2 (11:20→13:20)
--- NOTE | 2022-04-03 11:32 | Operative Report ---
Post Operative Report Pre & Post Diagnosis Operation Date: 04/03/22 09:30 Pre-Op Diagnosis: Left shoulder osteoarthritis Post-Op Diagnosis: Left shoulder osteoarthritis I identified the patient and participated in the time-out.: Yes Procedure Operation Date: 04/03/22 09:30 Actual Procedures Left reverse total shoulder arthroplasty (26823) Open biceps tenodesis (48749) - Cruz Farmer M.D. Surgeon Cruz Farmer Clay Miner Prince Kent PA-C Estimated Blood Loss 75 Findings Consistent with Post-Op Diagnosis Specimens None Drains None Anesthesia Type General Regional Complications none Disposition Disposition: Recovery Room Indications Ms. Wong is a 76-year-old female with severe left shoulder pain and stiffness. History, clinical exam, and imaging were consistent with the above diagnosis. Risks, benefits, and alternatives of surgery were explained in detail. The patient understood all this and wished to proceed. Description of Procedure Components Implanted: Tornier Reverse Total Shoulder implants Perform glenoid baseplate: 29mm, 15 degree full wedge with 6.5mm central screw and 5.0mm peripheral screws Glenosphere: 39mm, +3mm, eccentric offset Ascend Flex humeral stem: 5B Standard length (82mm) Humeral tray: 1.5 mm offset, +0mm thickness Polyethylene insert: 39mm, +6mm thickness Patient was identified in the preoperative holding area. Operative extremity was marked. Regional blockade was given by the Anesthesia Staff. Patient was then brought back to the operating room, and general anesthesia was induced without complication. Appropriate weight-based dose of Ancef was infused intravenously for antibiotic prophylaxis. The patient was then placed in the beachchair position. Left arm was then prepped and draped in a standard sterile fashion using Chlorhexidine prep. A standard deltopectoral incision was made through the skin and subcutaneous tissue. The cephalic vein was identified and retracted medially. Small branches to the deltoid were coagulated as necessary. The clavipectoral fascia was then incised and the subdeltoid space was opened. The rotator cuff was found to be deficient, and I therefore decided to perform a reverse total shoulder arthroplasty as planned preoperatively. The biceps tendon was identified within the bicipital groove and tenodesed at the superior border of the pectoralis tendon with #2 FiberWire suture. The biceps tendon was then divided proximal to the tenodesis site and the rotator interval was opened. The proximal portion of the biceps tendon was excised. The remaining subscapularis tendon was elevated subperiosteally off of the lesser tuberosity. The glenohumeral joint was then dislocated, and large osteophytes were debrided with a ronguer. The intramedullary canal of the humerus was then opened with a canal finder. The humeral head cut was then made in the appropriate inclination and version using the cutting guide. The humeral canal was then sequentially broached to the appropriate size. A protective cap was then placed on top of the humeral trial. I then turned my attention to the glenoid. The proximal stump of the biceps tendon was excised, along with the labrum circumferentially around the glenoid. The Blueprint drill guide was then positioned on the glenoid, and the guidepin was then inserted. The 15 degree angled reamer was then inserted over the guidepin and an reamed to an appropriate depth. The central screw hole was drilled, and appropriate length 6.5mm central screw was selected. The baseplate was then implanted into place according to our preoperative Blueprint plan by tightening down the central screw. A peripheral 5mm nonlocking screw was placed posteriorly first for additional compression of the baseplate, and then additional locking 5 mm peripheral screws were placed to complete fixation of the baseplate. Glenosphere was then impacted and secured. A trial humeral tray and insert were placed on the trial humeral stem, and a trial reduction was carried out. Once I achieved acceptable joint stability and range of motion with the trial implants, the final humeral implants were assembled on the back table and then impacted into position. I then took the shoulder through full range of motion to ensure good stability and acceptable motion. Wound was then copiously irrigated with sterile saline. Deep fascia was closed with 0 V-lock suture. Subcutaneous tissue was closed with 2-0 V-lock, and skin was closed with 3-0 V-lock. Skin was then sealed with Dermabond. Sterile dressings were then applied with a waterproof silver-impregnated dressing, and the arm was placed into a sling. The patient was awakened from anesthesia and taken to the Post Anesthesia Care Unit in stable condition. There were no immediate complications from the procedure. I was present and scrubbed for the entire procedure, with the exception of final skin closure and dressing application. Due to the complex nature of the procedure, the entire surgery was performed with the operational assistance of Prince Kent PA-C. The activities assistant, under direct supervision, was involved in the performance of all aspects of the surgical procedure including hemostasis, tissue incision and retraction, instrument management, patient positioning, and wound closure. I attest to the content of the Intraoperative Record and any orders documented therein. Any exceptions are noted below.
[2022-04-03] MEDS: fentaNYL citrate 100 MCG/2 ML VIAL IV PRN ×2 (12:13→12:18)
--- NOTE | 2022-04-03 12:53 | Anesthesiology Progress Note ---
Date of Service April 03, 2022 Anesthesia Post Procedure Vital Signs Vital Signs: Temp Pulse Pulse Resp BP Pulse Ox O2 Del Method 04/03/22 12:45 87 18 115/65 96 Nasal Cannula 04/03/22 12:35 88 24 117/69 94 Nasal Cannula 04/03/22 12:25 36.4 C L 89 16 109/90 92 Room Air 04/03/22 12:15 84 24 120/68 97 Oxymask 04/03/22 12:05 88 22 125/67 97 Oxymask 04/03/22 11:55 87 20 145/86 H 98 Oxymask 04/03/22 11:48 36.1 C L 89 16 150/83 H 98 Oxymask 04/03/22 07:18 36.9 C 75 20 130/66 94 Room Air O2 Flow Rate 04/03/22 12:45 2 04/03/22 12:35 2 04/03/22 12:25 04/03/22 12:15 3 04/03/22 12:05 4 04/03/22 11:55 4 04/03/22 11:48 6 04/03/22 07:18 Pain Intensity Left Shoulder: Pain Intensity: 4 Transfer of Care Handoff Completed per policy Notes Mental Status: alert / awake / arousable Patient Amnestic to Procedure: Yes Nausea / Vomiting: adequately controlled Pain: adequately controlled Airway Patency, RR, SpO2: stable & adequate BP & HR: stable & adequate Hydration State: stable & adequate Anesthetic Complications: no major complications apparent
[2022-04-03] MEDS ORDERED: METOCLOPRAMIDE HCL INJ 5 MG/ML 2 ML VIAL IV PRN (13:20)
[2022-04-03] MEDS ORDERED: clonazePAM 0.5 MG TAB PO PRN (13:20)
[2022-04-03] MEDS ORDERED: oxyCODONE HCL IR 5 MG TAB (IMMEDIATE RELEASE) PO PRN (13:20)
[2022-04-03] MEDS ORDERED: bisacodyL 10 MG SUPP PR PRN (13:20)
[2022-04-03] MEDS ORDERED: MAGNESIUM HYDROXIDE SUSP 30 ML UDC PO PRN (13:20)
--- NOTE | 2022-04-03 13:30 | XRay Report ---
XR shoulder LT min 2V routine CLINICAL HISTORY: Post shoulder surgery COMPARISON STUDY: None. FINDINGS: Status post reverse left total shoulder arthroplasty. The hardware is intact. No fracture o r dislocation. IMPRESSION: Status post reverse left total shoulder arthroplasty. No evidence for hardware complicat ion. ACT 112: Negative or not required by law. Electronically signed by: Gutierrez Anderson M.D. 04/03/2022 1:28 PM
[2022-04-03] MEDS: SODIUM CHLORIDE 0.9% 1000ML 1,000 ML IV SCH ×2 (13:32→22:53)
[2022-04-03] MEDS: ACETAMINOPHEN 500 MG TAB PO SCH ×2 (14:05→21:10)
--- NOTE | 2022-04-03 14:38 | Hospitalist Consultation ---
Date of Consultation April 03, 2022 Assessment & Plan (1) Primary osteoarthritis, left shoulder: - Pain management, bowel regimen and DVT ppx per the primary team - PT/OT consults, pt is planning on outpatient therapy - Follow am CBC to monitor for acute blood loss - Last BM was 2 days ago (2) Chronic kidney disease: - Hx of such, baseline creatinine of 0.8-0.9, follow with a.m. labs (3) Seizure: -History of such, 50 years ago, may continue lamotrigine 400 mg twice daily - Follows with Dr. Mcwilliams with neurology as an outpatient (4) GERD (gastroesophageal reflux disease): -History of Neumann's esophagus, can continue pantoprazole 20 mg twice daily -Tolerating diet without difficulty (5) Anxiety: -Continue BuSpar, citalopram, clonazepam as needed DVT PPx: - teds, scds, ambulatory CODE: Full code Dispo: From home, likely to remain in the hospital x 1-2 days Thank you for involving us in the care of Mrs. Wong. If you have any questions or concerns please do not hesitate to call. At this time medicine will follow along. Supervising Physician Co-Signing Physician Notes This is an attending cosign note for full report and documentation please see the full dictation by ALANIS following is a synopsis. Patient is postop left shoulder replacement. In the company of her . On the whole no new complaints however complains of discomfort with the left shoulder. Denies significant chest pain shortness of breath nausea vomiting. Head atraumatic chest largely clear abdomen soft. Pain on moving the left shoulder. Pain control DVT prophylaxis as per the primary team. Continue otherwise chronic medication. History of Present Illness Reason for Consultation: Medical management Requesting Physician: Dr. Farmer Attending Physician: Cruz Farmer History of Present Illness This is a 76 yo F with PMHx of CKD stage III, HLD, hx of pulmonary embolism in 2011, seizure disorder on lamictal, GERD, anxiety , neumann esophagus and depression who presented for sheduled Left Reverse total shoulder replacement by Dr. Farmer on 04/03/22. She tolerated the procedure without difficulty today. Medicine was asked for consult for medical management. Patient is doing quite well, but reports that she is unable to feel her left arm or move her fingers yet. She denies any pain, but describes numbness and tingling. Pt tolerated lunch without any difficulty and has drank 2 mugs of water here at bedside. Her is present with her at bedside. She anticipates doing physical therapy at home. Patient also notes that in regards to her medication, she has been on lamotrigine for many years, possibly 50? But has never had a seizure in that timeframe. She takes multiple medications for anxiety. Patient's last bowel movement was 2 days ago. She denies any other acute complaints. Allergies Allergy/AdvReac Type Severity Reaction Status Date / Time phenazopyridine Allergy Unknown Pruritis Verified 04/03/22 07:26 Sulfa (Sulfonamide Allergy Unknown Hives Verified 04/03/22 07:26 Antibiotics) domperidone AdvReac Unknown Balance Verified 04/03/22 07:26 issues metoclopramide AdvReac Unknown Balance Verified 04/03/22 07:26 issues Home Medications Medication Instructions Recorded Confirmed Type citalopram 20 mg tablet 20 mg PO QAM 05/31/18 04/03/22 History clonazepam 0.5 mg tablet 0.5 mg PO BID PRN Anxiety 05/31/18 04/03/22 History lamotrigine 200 mg tablet 400 mg PO BID 05/31/18 04/03/22 History pantoprazole 20 mg tablet,delayed 20 mg PO BID 04/02/20 04/03/22 History release rosuvastatin 5 mg tablet 5 mg PO QAM 08/16/20 04/03/22 History vitamin B complex (Complex B-100) 1 tab PO QAM 01/16/21 04/03/22 History buspirone 10 mg tablet 10 mg PO BID 02/01/21 04/03/22 History Patient History Medical History (Updated 04/03/22 @ 15:13 by Concepcion Levin PA-C) Anxiety Neumann esophagus Chronic kidney disease Stage III Depression GERD (gastroesophageal reflux disease) History of COVID-19 Dx 2019, mild symptoms History of high cholesterol Left flank pain, chronic Following with PCP and possibly PT Pain worsens with laying flat or on left side PE (pulmonary embolism) B/L 2011, previously on coumadin Seizure Reason for Lamictal Seizure free for many years Temporomandibular joint disorder + clicking, + locking 10/2021 at dentist (unlocked with massage) Surgical History H/O colonoscopy H/O esophagogastroduodenoscopy H/O vein stripping History of back surgery Thoracic/lumbar History of hysterectomy Total S/P cholecystectomy Lap cholecystectomy (02/15/19): Grade 2 view, MAC 3.0, ETT 7.0 at [facility]. No issues noted per post-op anesthesia progress note. Family History Other Heart disease No family history of adverse response to anesthesia Ovarian cancer Social History Smoking Status: Never smoker Second Hand Exposure: No; Do You Dip or Chew Tobacco: No; Tobacco Cessation Education Requested by Patient: No Hx Alcohol Use: No Hx Substance Use: No Preferred Language: [place] Communication Ability: Effective Visual Impairment: No Limitations Power Originator Required: No Beliefs That Will Affect Care: None Current Living Situation: Spouse Other Information That Helps Us Care for You: No Feels Safe at Home: Yes Safety Concerns: Feels Safe At This Time Assistive Devices: Glasses Assistive Devices Comment: bottom partials Review of Systems Review of Systems: Constitutional: No fever, sweats or chills Eyes: No diplopia, no worsening or blurred vision ENT: normal hearing, no trouble swallowing Respiratory: No cough, sputum, dyspnea at rest or on exertion Cardiovascular: No chest pain, tightness or palpitations Abdomen: No pain, nausea, vomiting, diarrhea or constipation Musculoskeletal: No joint pain, calf pain, swelling, + as per HPI Neurologic: No weakness, + left arm/hand numbness/tingling, no balance problems Psychiatric: + Anxiety and depression on medication Skin: No rash or itch Physical Exam Physical Exam: General: awake, alert, no apparent distress Head: Normocephalic, atraumatic ENT: PERRL, EOMI, no pharyngeal exudate, mucous membranes moist Chest: Clear to auscultation, on room air, no adventitious breath sounds Cardiac: Regular rate and rhythm, no murmur, no JVD, normal peripheral pulses, good capillary refill Abdominal: NABS x 4 quadrants, soft, nondistended, nontender to palpation, no rebound or guarding Extremities: Left shoulder bandage, C/C/I, ice pack in place, sling in place, patient is unable to move her left hand or fingers. Right upper extremity normal inspection, no peripheral edema or erythema, calfs nontender to palpation Psych: Normal mood and affect Neuro: AAO x 3, strength intact bilaterally and rated 5/5 in all extremities except for the left upper extremity, no motor deficits, speech is clear, no peripheral sensory deficits Results & Data Results & Data ([facility]) Vital Signs (Past 12 Hours) Vital Signs Temp Pulse Pulse Resp BP Pulse Ox O2 Del Method 04/03/22 13:30 Nasal Cannula 04/03/22 14:00 36.6 C 92 H 16 121/73 97 Nasal Cannula 04/03/22 13:27 36.4 C L 94 H 16 102/68 94 Nasal Cannula 04/03/22 13:00 36.7 C 90 14 110/60 95 Room Air 04/03/22 12:45 87 18 115/65 96 Nasal Cannula 04/03/22 12:35 88 24 117/69 94 Nasal Cannula 04/03/22 12:25 36.4 C L 89 16 109/90 92 Room Air 04/03/22 12:15 84 24 120/68 97 Oxymask 04/03/22 12:05 88 22 125/67 97 Oxymask 04/03/22 11:55 87 20 145/86 H 98 Oxymask 04/03/22 11:48 36.1 C L 89 16 150/83 H 98 Oxymask 04/03/22 07:18 36.9 C 75 20 130/66 94 Room Air O2 Flow Rate 04/03/22 13:30 2 04/03/22 14:00 2 04/03/22 13:27 2 04/03/22 13:00 04/03/22 12:45 2 04/03/22 12:35 2 04/03/22 12:25 04/03/22 12:15 3 04/03/22 12:05 4 04/03/22 11:55 4 04/03/22 11:48 6 04/03/22 07:18 Laboratory Results 04/03/22 07:11 SARS-CoV-2, RNA, NAAT NEGATIVE
[2022-04-03] MEDS: IBUPROFEN 600 MG TAB PO SCH ×2 (17:26→22:54)
[2022-04-03] MEDS: ceFAZolin 2000MG 2,000 MG/15 ML SYR IV SCH (17:26)
[2022-04-03] MEDS ORDERED: SENNA 8.6 MG TAB PO SCH (21:00)
[2022-04-03] MEDS: busPIRone 5 MG TAB PO SCH (21:07)
[2022-04-03] MEDS: PANTOprazole 40 MG TAB PO SCH (21:07)
[2022-04-03] MEDS: DOCUSATE SODIUM 100 MG CAP PO SCH (21:10)
[2022-04-03] MEDS: lamoTRIgine 100 MG TAB PO SCH (21:11)
[2022-04-04] MEDS: ACETAMINOPHEN 500 MG TAB PO SCH ×3 (01:34→15:52)
[2022-04-04] MEDS: ceFAZolin 2000MG 2,000 MG/15 ML SYR IV SCH (01:34)
[2022-04-04] MEDS: IBUPROFEN 600 MG TAB PO SCH ×3 (04:07→17:10)
[2022-04-04 08:06] LABS: Basophils # (auto) 0.01 K/uL (0-0.2); Basophils % (auto) 0.1 %; Hematocrit (blood only) 38.5 % (34.1-44.9); Hemoglobin 12.2 g/dl (12.0-16.0); Immature Granulocytes # (auto) 0.04 K/uL (0.00-0.02); Immature Granulocytes % (auto) 0.4 %; Lymphocytes % (auto) 10.9 %; Mean Corpuscular Hemoglobin 31.8 pg (25.0-34.0); Mean Corpuscular Hgb Conc 31.7 g/dL (32.0-36.0); Mean Corpuscular Volume 100.3 fL (80.0-100.0); Mean Platelet Volume 9.6 fL (9.4-12.3); Monocytes # (auto) 0.64 K/uL (0.24-0.82); Monocytes % (auto) 5.8 %; Neutrophils % (auto) 82.8 %; Platelet Count 199 K/uL (130-400); RDW Coefficient of Variation 12.9 % (11.5-14.5); RDW Standard Deviation 47.1 fL (36.4-46.3); Red Blood Count 3.84 M/uL (3.93-5.22); White Blood Count 10.99 K/ul (4.8-10.8)
--- NOTE | 2022-04-04 08:26 | Orthopedic Progress Note ---
Date of Service April 04, 2022 Assessment & Plan (1) Status post reverse arthroplasty of left shoulder: Plan: 76 yo female stable POD #1 s/p left reverse TSA 1. Med management 2. DVT prophylaxis- ASA, SCDs 3. PT/OT 4. D/C planning- home w/ OPPT Admission and Anticipated Discharge Date Admission Date: April 03, 2022 Subjective Pt resting in chair, "arm feels heavy, still can't move fingers", denies pain Physical Exam Physical Exam: Silverlon dressing in place, pt able to flex fingers but unable to extend, fingers still with slight altered sensation Results & Data ([facility]) Vital Signs (Past 12 Hours) Vital Signs Temp Pulse Pulse Resp BP Pulse Ox O2 Del Method 04/04/22 07:22 36.7 C 73 18 109/66 91 04/04/22 04:06 68 115/64 04/04/22 03:50 36.4 C L 74 16 90/50 L 93 Room Air 04/03/22 23:05 36.5 C 74 16 113/64 91 Room Air Laboratory Results 04/04/22 04/04/22 Range/Units 07:37 07:37 WBC 10.99 H (4.8-10.8) K/ul RBC 3.84 L (3.93-5.22) M/uL Hgb 12.2 (12.0-16.0) g/dl Hct 38.5 (34.1-44.9) % MCV 100.3 H (80.0-100.0) fL MCH 31.8 (25.0-34.0) pg MCHC 31.7 L (32.0-36.0) g/dL RDW Std Deviation 47.1 H (36.4-46.3) fL RDW Coeff of Bill 12.9 (11.5-14.5) % Plt Count 199 (130-400) K/uL MPV 9.6 (9.4-12.3) fL Immature Gran % (Auto) 0.4 % Neut % (Auto) 82.8 % Lymph % (Auto) 10.9 % [place] % (Auto) 5.8 % Eos % (Auto) 0.0 % Baso % (Auto) 0.1 % Neut # (Auto) 9.10 H (1.4-6.5) K/uL Lymph # (Auto) 1.20 (1.2-3.4) K/uL [place] # (Auto) 0.64 (0.24-0.82) K/uL Eos # (Auto) 0.00 (0-0.50) K/uL Baso # (Auto) 0.01 (0-0.2) K/uL Immature Gran # (Auto) 0.04 H (0.00-0.02) K/uL Sodium Pending Potassium Pending Chloride Pending Carbon Dioxide Pending Anion Gap Pending BUN Pending Creatinine Pending Est Cr Clr Drug Dosing Pending Est GFR ( Amer) Pending Est GFR (Non-Af Amer) Pending BUN/Creatinine Ratio Pending Glucose Pending Calcium Pending
[2022-04-04 08:36] LABS: BUN Creatinine Ratio 19.5 (10-20); Calcium 9.4 mg/dl (8.5-10.1); Creatinine Clr Calc Pharmacy 62.4 ml/min; Est GFR (African American) 81.1 ml/min; Potassium 4.2 mmol/L (3.5-5.1)
[2022-04-04] MEDS ORDERED: CITALOPRAM 20 MG TAB PO SCH (09:00)
[2022-04-04] MEDS ORDERED: ROSUVASTATIN CALCIUM 5 MG TAB PO SCH (09:00)
[2022-04-04] MEDS ORDERED: VITAMIN B COMPLEX TAB PO SCH (09:00)
[2022-04-04] MEDS ORDERED: MULTIVITAMIN TAB PO SCH (09:00)
[2022-04-04] MEDS ORDERED: ASPIRIN 325 MG ECTAB PO SCH (09:00)
[2022-04-04] MEDS: busPIRone 5 MG TAB PO SCH (09:45)
[2022-04-04] MEDS: PANTOprazole 40 MG TAB PO SCH (09:45)
[2022-04-04] MEDS: lamoTRIgine 100 MG TAB PO SCH (09:45)
[2022-04-04] MEDS: DOCUSATE SODIUM 100 MG CAP PO SCH (09:46)
--- NOTE | 2022-04-04 11:55 | Hospitalist Progress Note ---
Date of Service April 04, 2022 Assessment & Plan (1) Chest pain: Plan: As detailed below in Subjective, she had chest heaviness when using IS, not with exertional activities, her recent stress test was unremarkable and her trop X1 and EKG unremarkable. Suspect could be MSK or from anxiety rather than cardiac, however would recommend serial trop at 2 hr and 6 hr for completeness. If negative, she can be discharged home if cleared by primary team. (2) Primary osteoarthritis, left shoulder: Plan: - S/p Left reverse total shoulder arthroplasty and open biceps tenodesis by Dr Farmer - Pain management, bowel regimen, activities and DVT ppx per primary team (3) Chronic kidney disease: Plan: - Cr stable at baseline of 0.8-0.9, (4) Seizure: Plan: -History of such, 50 years ago, may continue lamotrigine 400 mg twice daily - Follows with Dr. Mcwilliams with neurology as an outpatient (5) GERD (gastroesophageal reflux disease): Plan: -History of Cerda's esophagus, continue pantoprazole 20 mg twice daily -Tolerating diet without difficulty (6) Anxiety: Plan: -Continue BuSpar, citalopram, clonazepam as needed Plan Dispo- recommend serial trop. If negative, she would be cleared for discharge home per primary team. Admission and Anticipated Discharge Date Admission Date: April 03, 2022 Subjective She felt fine this morning during my encounter however later I was informed by RN that she had chest heaviness. Stat EKG and high sensitivity troponin x1 was unremarkable. Saw the patient again at bedside. States heaviness has significantly improved. She had the heaviness when she was using IS and was in uncomfortable position. She is wondering whether this could be from the strap or her anxiety. She does worry a lot. She recently had stress test 03/20 which was unremarkable. She also had physical therapy this morning and had no CP or dyspnea which is reassuring. Her negative trop and EKG are further reassuring. Moreover her chest heaviness started when using her IS and not with exertion. This could be MSK or from her anxiety. However, for completeness recommend serial trop x2 and patient agrees. She was reassured at bedside and felt a relief. Physical Exam Physical Exam: General: Sitting comfortably in bed, not in distress, on room air HEENT: EOMI, HAZEL, MMM Chest: No chest wall tenderness. Clear breath sounds bilaterally, no wheezes or crackles CVS: Regular rate and rhythm, normal heart sounds, no murmur Abdomen: Soft, non tender, not distended, normal bowel sounds Neuro: Awake, alert, oriented, conversing well, non focal Extremities: Left upper chest incision site clean dry covered with dressing. LUE in sling Results & Data Results & Data ([facility]) Vital Signs (Past 12 Hours) Vital Signs Temp Pulse Pulse Resp BP Pulse Ox O2 Del Method 04/04/22 10:20 80 16 108/65 96 Room Air 04/04/22 07:22 36.7 C 73 18 109/66 91 04/04/22 04:06 68 115/64 04/04/22 03:50 36.4 C L 74 16 90/50 L 93 Room Air Laboratory Results Short CBC 04/04/22 Range/Units 07:37 WBC 10.99 H (4.8-10.8) K/ul Hgb 12.2 (12.0-16.0) g/dl Hct 38.5 (34.1-44.9) % Plt Count 199 (130-400) K/uL BMP 04/04/22 07:37 Sodium 140 Potassium 4.2 Chloride 106 Carbon Dioxide 27 BUN 16 Creatinine 0.82 Glucose 105 H Calcium 9.4 Medications Administered Current Inpatient Medications Acetaminophen (Acetaminophen 500 Mg Tab) 500 mg PO Q6H [facility] Stop: 05/03/22 13:19 Last Admin: 04/04/22 09:45 Dose: 500 mg Aspirin (Aspirin 325 Mg Ectab) 325 mg PO QAM [facility] Stop: 05/04/22 08:59 Last Admin: 04/04/22 09:42 Dose: 325 mg Bisacodyl (Bisacodyl 10 Mg Supp) 10 mg MO DAILY PRN PRN Reason: Constipation Stop: 05/03/22 13:19 Buspirone HCl (Buspirone 5 Mg Tab) 10 mg PO BID [facility] Stop: 05/03/22 20:59 Last Admin: 04/04/22 09:45 Dose: 10 mg Citalopram Hydrobromide (Citalopram 20 Mg Tab) 20 mg PO QAM [facility] Stop: 05/04/22 08:59 Last Admin: 04/04/22 09:45 Dose: 20 mg Clonazepam (Clonazepam 0.5 Mg Tab) 0.5 mg PO BID PRN PRN Reason: Anxiety Stop: 05/03/22 13:19 Docusate Sodium (Docusate Sodium 100 Mg Cap) 100 mg PO BID [facility] Stop: 05/03/22 20:59 Last Admin: 04/04/22 09:46 Dose: 100 mg Ibuprofen (Ibuprofen 600 Mg Tab) 600 mg PO Q6H [facility] Stop: 05/03/22 14:59 Last Admin: 04/04/22 10:49 Dose: 600 mg Lamotrigine (Lamotrigine 100 Mg Tab) 400 mg PO BID [facility] Stop: 05/03/22 20:59 Last Admin: 04/04/22 09:45 Dose: 400 mg Magnesium Hydroxide (Magnesium Hydroxide Susp 30 Ml Udc) 30 ml PO Q6H PRN PRN Reason: Constipation Stop: 05/03/22 13:19 Metoclopramide HCl (Metoclopramide Hcl Inj 5 Mg/Ml 2 Ml Vial) 10 mg IV Q6H PRN PRN Reason: Nausea And Vomiting Stop: 05/03/22 13:19 Multivitamins (Multivitamin Tab) 1 tab PO QAM [facility] Stop: 05/04/22 08:59 Last Admin: 04/04/22 09:43 Dose: 1 tab Naloxone HCl (Naloxone Hcl 0.4 Mg/1 Ml Vial/Carp) 0.1 mg IV Q5M PRN PRN Reason: Oversedation/Resp Depression Stop: 05/03/22 13:19 Ondansetron HCl (Ondansetron Inj 2 Mg/Ml 2 Ml Vial) 4 mg IV Q6H PRN PRN Reason: Nausea And Vomiting Stop: 05/03/22 13:19 Oxycodone HCl (Oxycodone Hcl Ir 5 Mg Tab (Immediate Release)) 5 - 10 mg PO Q4H PRN PRN Reason: Pain or Pre PT Stop: 04/17/22 13:19 Last Admin: 04/03/22 15:09 Dose: 5 mg Pantoprazole Sodium (Pantoprazole 40 Mg Tab) 40 mg PO BID [facility] Stop: 05/03/22 20:59 Last Admin: 04/04/22 09:45 Dose: 40 mg Rosuvastatin Calcium (Rosuvastatin Calcium 5 Mg Tab) 5 mg PO QAM [facility] Stop: 05/04/22 08:59 Last Admin: 07/22/22 09:44 Dose: 5 mg Sennosides (Senna 8.6 Mg Tab) 17.2 mg PO HS [facility] Stop: 05/03/22 20:59 Last Admin: 04/03/22 21:11 Dose: 17.2 mg Vitamin B Complex (Vitamin B Complex Tab) [facility] Stop: 05/04/22 08:59 Last Admin: 04/04/22 09:44 Dose: 1 tab
--- NOTE | 2022-04-05 09:06 | Electrocardiogram Report ---
Test Reason : Blood Pressure : / mmHG Vent. Rate : 074 BPM Atrial Rate : 074 BPM P-R Int : 172 ms QRS Dur : 084 ms QT Int : 400 ms P-R-T Axes : 060 -07 015 degrees QTc Int : 444 ms Normal sinus rhythm Early Transition When compared with ECG of 02-APR-2020 07:50, No significant change was found Confirmed by Ran Franco ([id number]) on 04/05/2022 9:06:02 AM Referred By: Cruz Farmer Confirmed By:Ran Franco
--- NOTE | 2022-04-10 15:14 | Discharge Summary ---
Date of Service April 10, 2022 Admission HPI Per Admitting Provider Ms. Wong returns. Again, she is a 76-year-old [id number] female with chronic progressive left shoulder pain and stiffness related to glenohumeral joint arthritis. This has been going on for at least a year with gradual progressive worsening. She has noted a significant loss of motion over time. The pain is now waking her up at night. She did have a steroid injection in her shoulder in January 2021 by another provider, but did not note any significant improvement with that injection. She denies any injury. I initially saw her in August 2021 and gave her a glenohumeral joint steroid injection. She noted marked improvement in her pain with that injection, and it lasted several months. I repeated the injection in early December, but this 1 did not give her nearly the same level relief. She really did not notice a lot of relief with that injection. Principal Diagnosis Left shoulder osteoarthritis Discharge Data Allergies Allergy/AdvReac Type Severity Reaction Status Date / Time phenazopyridine Allergy Unknown Pruritis Verified 04/03/22 07:26 Sulfa (Sulfonamide Allergy Unknown Hives Verified 04/03/22 07:26 Antibiotics) domperidone AdvReac Unknown Balance Verified 04/03/22 07:26 issues metoclopramide AdvReac Unknown Balance Verified 04/03/22 07:26 issues Consultations 03/31/22 15:59 Consult Hospitalist Routine Procedures Performed Operation Date: 04/03/22 09:30 Actual Procedures p Left Reverse Total Shoulder Arthroplasty - Cruz Farmer M.D. Ordered Studies 04/03/22 05:00 US - OR guided needle placemen Routine Hospital Course (1) Primary osteoarthritis, left shoulder: Patient underwent a left reverse total shoulder arthroplasty on the date of admission. Patient tolerated the procedure well and was transferred up to the general orthopedic surgery floor in stable condition. Perioperative antibiotic coverage was initiated, and continued for 24 hours postoperatively. DVT prophylaxis was initiated consisting of SCDs and aspirin 325 mg daily. Perioperative pain control regimen was transitioned to strictly oral pain medications by postoperative day 1. On postoperative day 1 the patient was doing very well. Pain was well controlled, and patient was mobilizing well with therapy. Our plan was for discharge in the morning on postoperative day 1. However, shortly before her planned discharge, she described "heaviness" in her chest wh ile using incentive spirometry. The internal medicine team performed an EKG and troponins, which were unremarkable, but recommended serial troponins for completeness. She had 4 total lab draws for troponin levels throughout the day, which were all normal. Patient was therefore determined be safe and ready for discharge to home, and was discharged later in the evening on postoperative day 1. Total Time Total Time Spent Total Time Spent (In Minutes): 15 Discharge Plan Discharge Items Patient Disposition: Home - Self-Care Reason For Visit: Primary Osteoarthritis, Left Shoulder Discharge Diagnosis: Left shoulder osteoarthritis Activity: Per Instructions section Non-emergency contact: Surgeon Call non-emergency contact if: your pain is not controlled, your temperature is above 101.5, your wound has increased redness and your wound has increased drainage Follow-up/Referrals: Adalberto Huynh MD [Primary Care Provider] - Cruz Farmer M.D. [Physician] - Diet: Regular Addtl Attending Provider Instructions: Things to Watch Out For -Go to the Emergency Room if you have sudden onset of nausea, vomiting, chest pain, shortness of breath, or uncontrollable pain. -Call the clinic or go to the Emergency Room if you have a sudden increase in the amount of wound drainage or the drainage becomes thick, yellow or green, or foul-smelling. -For routine questions, call the clinic at [phone] during regular business hours (8am-5pm). For urgent issues after regular business hours, you may call the clinic to be connected to the on-call physician. Dressings -A special waterproof, silver-impregnated dressing was placed on your shoulder. Keep this dressing in place for 1 week after surgery. You may shower with the waterproof dressing in place, but do not soak the dressing in the bathtub or pool. -One week after surgery, you may remove the waterproof dressing. You may continue to shower, and let water run BRIEFLY over the incision, but do not soak the incision in the bathtub or pool for 2 weeks. You may also gently clean the incision with mild soap and water; pat the incision dry after cleaning-do not rub the incision. Apply a new dressing daily thereafter. Shoulder Exercises -Keep your operative shoulder in the sling for comfort, except as detailed bel ow. -You should come out of the sling 4-5 times a day for passive pendulum exercises: lean over and swing your arm in a circular pattern. -You should also do active-assisted forward flexion exercises: use your opposite hand to lift your operative arm forward to 90 degrees. -Do not flex your elbow (curl motion) or supinate your forearm (rotating palm up) against resistance. -Do not use your arm to push yourself up out of bed or up from a seated position. Ice Pack -You may use an ice pack for pain relief. You should use it 20-30 minutes at a time. Place a towel between the ice pack and your skin to prevent frostbite. -You should use the ice pack fairly regularly for the first 1-2 weeks after surgery to help reduce pain and inflammation. -About 2 weeks after your surgery, you should start using heat to loosen up your shoulder prior to doing your stretching exercises, then use the cooling sleeve after your exercises are complete to reduce swelling and pain. Pain Medicines -Your prescriptions for pain medications have already been sent to the pharmacy on file at [facility]. -You have been prescribed an anti-inflammatory (Motrin/ibuprofen) and a non- narcotic pain medicine (Tylenol/acetaminophen). These are your primary pain medications. Take them each every 6 hours as instructed. It is recommended that you stagger these medicines every 3 hours (i.e. take ibuprofen at 8:00 am, then acetaminophen at 11:00 am, then ibuprofen at 2:00 pm, etc) -DO NOT take any additional anti-inflammatories (Advil, Aleve/naproxen, Mobic/meloxicam, Celebrex) or any additional Tylenol/acetaminophen products with these prescribed medications. -You have also been prescribed an additional narcotic pain medication (oxycodone). Take this medicine ONLY for breakthrough pain not controlled by the ibuprofen and acetaminophen. -Do not drive or operate heavy machinery while taking the narcotic medication. -Common side effects of narcotic pain medicines include itching, nausea, constip ation, and feeling "loopy". However, if you develop a rash or hives, stop taking the medicine and call the clinic. If you develop swelling in your throat or difficulty breathing, go to the Emergency Room or call 911 IMMEDIATELY. -You may take over the counter stool softeners if needed for constipation. Aspirin -Take a full strength (325mg) aspirin every day for 4 weeks (28 days) to prevent blood clots. -If you were taking a baby aspirin (81mg) prior to surgery, you may resume taking this 81mg dose after you complete the 28-day course of the 325mg strength dose; do not take the 325mg dose in addition to your 81mg dose. -Be aware that you will bruise easier while taking Aspirin; this is normal. However, if you develop a significantly large area of swelling after an injury, or have a cut that will not stop bleeding, call the clinic or go to the Emergency Room immediately. Pending Studies at Discharge: No Stand-Alone Forms: My [facility], Opioid Pain Management Medications and DC Order Prescriptions: Continued lamotrigine 200 mg tablet 400 mg PO BID clonazepam 0.5 mg tablet 0.5 mg PO BID PRN (Reason: Anxiety) citalopram 20 mg Tablet 20 mg PO QAM rosuvastatin 5 mg tablet 5 mg PO QAM pantoprazole 20 mg tablet,delayed release (DR/EC) 20 mg PO BID Complex B-100 Tablet Extended Release 1 tab PO QAM buspirone 10 mg tablet 10 mg PO BID Discharge Orders: Discharge Order (Routine); Ordered 04/04/22 Ordered By: Prince Kent Admission Data Admit Date/Time: 04/03/22 11:45 Attending Provider: Cruz Farmer Admit Provider: Cruz Farmer Primary Care Provider: Adalberto Huynh Other Providers: Casey Jhaveri ; Audie King Other Interventions: Discharge Summary Assessment (RN) Last Done: 04/04/22 17:27 Apply Sling/Shoulder Immobilizer Last Done: 04/03/22 13:20
== END 2022-04-04 18:49 | disposition home or self-care (01) | DRG 483 ==
LOC: ASU 06:54 → 3E 11:45 → INTOOBSV 11:45

== ENCOUNTER 2022-11-20 11:58 | Inpatient (IN) ==
--- NOTE | 2022-11-18 11:08 | Anesthesiology Consultation ---
Date of Service November 18, 2022 Assessment & Plan (1) Encounter for pre-operative examination: Chart Review Chart Review: Acceptable Risk for Surgery and Patient NOT seen in Pre Admission Testing - Pt is not a Same Day Joint candidate due to age -COVID screening: Per PAT nursing assessment on 11/18/22. No known COVID-19 positive contacts or current COVID-19 related symptoms. Travel screen negative. Patient vaccinated for Covid. At surgeon discretion if preop Covid testing being done. Left reverse total shoulder arthroplasty 04/02/22= Done under [facility] with Grade 1 view. ETT #7.0. Atraumatic intubation. Lips and teeth as preop History Surgery Operation Date: 11/20/22 12:30 Proposed Procedures p Left Shoulder Open Reduction Internal Fixation of Periprosthetic Proximal Humerus Fracture versus - Cruz Farmer M.D. s Revision of Total Shoulder Arthroplasty - Cruz Farmer M.D. Height/Weight Height: 5 ft 7 in Weight: 74.843 kg Allergies Allergy/AdvReac Type Severity Reaction Status Date / Time phenazopyridine Allergy Intermediate Pruritis Verified 11/18/22 10:25 Sulfa (Sulfonamide Allergy Intermediate Hives Verified 11/18/22 10:25 Antibiotics) domperidone AdvReac Intermediate Balance Verified 11/18/22 10:25 issues metoclopramide AdvReac Intermediate Balance Verified 11/18/22 10:25 issues Medications Home Medications Medication Instructions Recorded Confirmed Last Taken citalopram 20 mg tablet 20 mg PO QAM 05/31/18 11/18/22 11/15/22 clonazepam 0.5 mg tablet 0.5 mg PO BID PRN Anxiety 05/31/18 11/18/22 04/03/22 06:00 lamotrigine 200 mg tablet 400 mg PO BID 05/31/18 11/18/22 11/15/22 08:00 pantoprazole 20 mg tablet,delayed 20 mg PO BID 04/02/20 11/18/22 11/15/22 08:00 release rosuvastatin 5 mg tablet 5 mg PO QAM 08/16/20 11/18/22 11/15/22 vitamin B complex (Complex B-100 1 tab PO QAM 01/16/21 11/18/22 11/15/22 tablet,extended release) buspirone 10 mg tablet 10 mg PO BID 02/01/21 11/18/22 11/15/22 08:00 oxycodone 5 mg tablet 5 mg PO Q8H PRN pain #47 tabs 11/15/22 11/18/22 Unknown Past Medical History Medical History Anxiety Cerda esophagus Chronic kidney disease Stage III Depression GERD (gastroesophageal reflux disease) History of COVID-19 Dx 2019, mild symptoms History of high cholesterol Left flank pain, chronic Following with PCP and possibly PT Pain worsens with laying flat or on left side PE (pulmonary embolism) B/L 2011, previously on coumadin Seizure Reason for Lamictal Seizure free for many years Temporomandibular joint disorder + clicking, + locking 10/2021 at dentist (unlocked with massage) Past Family History Family History Other Heart disease No family history of adverse response to anesthesia Ovarian cancer Past Surgical History Surgical History H/O colonoscopy H/O esophagogastroduodenoscopy H/O vein stripping History of back surgery Thoracic/lumbar History of hysterectomy Total Hx of total shoulder replacement lt. S/P cholecystectomy Lap cholecystectomy (02/15/19): Grade 2 view, MAC 3.0, ETT 7.0 at [facility]. No issues noted per post-op anesthesia progress note. Social History Smoking Status: Never smoker Do You Dip or Chew Tobacco: No Hx Alcohol Use: No Hx Substance Use: No substance use type: does not use Lab Results Anesthesia Preop Results Results Anesthesia Widget: WBC 6.35 K/ul (4.8-10.8) 11/15/22 Hgb 12.8 g/dl (12.0-16.0) 11/15/22 Hct 39.1 % (37.0-47.0) 11/15/22 Plt 202 K/uL (130-400) 11/15/22 Na 138 mmol/L (136-145) 11/15/22 K 4.0 mmol/L (3.5-5.1) 11/15/22 Cl 102 mmol/L (98-107) 11/15/22 CO2 32 mmol/L (21-32) 11/15/22 BUN 11 mg/dl (6-23) 11/15/22 Creat 0.99 mg/dl (0.6-1.2) 11/15/22 Glucose Level 93 mg/dl (70-99(Fasting)) 11/15/22 Testing Electrocardiogram Date: 04/04/22 Findings: + NSR @ (74bpm) Early transition When compared to EKG from April 02, 2020- no significant change was found per cardio Chest X-Ray Date: 03/11/22 FINDINGS: The cardiomediastinal and hilar silhouettes are within normal limits. No pneumothorax, pleural effusion, airspace consolidation or overt pulmonary edema. Mild linear subsegmental atelectasis versus scarring of the lateral left lung base. Lumbar spinal fusion hardware. Cholecystectomy. Degenerative changes of the shoulders and spine. IMPRESSION: No acute process. Stress Test Date: 03/20/22 Type: DSE Stress echo was negative for inducible ischemia. Stress EKG response was normal with upsloping ST segment depression noted at peak stress, normalizing by 1 minute in recovery. No arrhythmias. Normal HR and BP response to dobutamine infusion At rest, normal LV chamber size and wall thickness. Normal LV systolic function without regional wall motion abnormalities. EF 55 to 60%. Grade 1 DD. Mild AR.
--- NOTE | 2022-11-19 16:29 | History & Physical Report ---
Date of Service November 19, 2022 Assessment & Plan (1) Periprosthetic fracture around internal prosthetic left shoulder joint, initial encounter: Plan: She has a left shoulder periprosthetic proximal humerus fracture adjacent to a reverse total shoulder arthroplasty. It looks like the humeral stem is likely stable. I would like to evaluate this further with a CT scan to see if there is any obvious fracture extension up into the proximal humeral component or any obv ious loosening of that humeral stem. If that stem is stable, I will plan for ORIF with unicortical screws and cerclage cables around the proximal fragment. If the stem is unstable or I cannot get good fixation, then I will likely have to remove the humeral stem and revise it with a diaphyseal fit humeral component. This was all explained to the patient and her family, who voiced understanding. We will therefore plan for a left shoulder ORIF of the proximal humerus fracture versus revision total shoulder arthroplasty. Risks, benefits, and alternatives of surgery were explained in detail. The surgical procedure, as well as postoperative recovery and rehabilitation, was also explained in detail. Risks include bleeding; infection; damage to surrounding structures such as nerves, blood vessels, and tendons that run in the area; persistent pain, numbness, weakness, or stiffness; nonunion; malunion; hardware failure; painful prominent hardware requiring removal; or need for further surgery. The patient understands all of this and wishes to proceed with surgery. Risks will be reviewed on the day of surgery and informed consent obtained. History of Present Illness Chief Complaint: Left shoulder injury Primary Care Provider: Adalberto Huynh MD 04/03/22 - Left reverse total shoulder arthroplasty with biceps tenodesis Ms. Wong returns, but it for a new injury to her left shoulder. Again, she is a 77-year-old female who previously underwent a left reverse total shoulder arthroplasty over 7 months ago in March 2022 with good results. She was doing well until this past weekend. She states that she was at a friend's house and was walking on the hardwood floor and just her socks and slipped and had a ground-level fall onto her left arm. She had immediate pain and difficulty with motion in that arm. She went to the emergency room, where she was diagnosed with fracture. She was placed into a sling and referred here for definitive management. Allergies Allergy/AdvReac Type Severity Reaction Status Date / Time phenazopyridine Allergy Intermediate Pruritis Verified 11/18/22 10:25 Sulfa (Sulfonamide Allergy Intermediate Hives Verified 11/18/22 10:25 Antibiotics) domperidone AdvReac Intermediate Balance Verified 11/18/22 10:25 issues metoclopramide AdvReac Intermediate Balance Verified 11/18/22 10:25 issues Home Medications Medication Instructions Recorded Confirmed Type citalopram 20 mg tablet 20 mg PO QAM 05/31/18 11/18/22 History clonazepam 0.5 mg tablet 0.5 mg PO BID PRN Anxiety 05/31/18 11/18/22 History lamotrigine 200 mg tablet 400 mg PO BID 05/31/18 11/18/22 History pantoprazole 20 mg tablet,delayed 20 mg PO BID 04/02/20 11/18/22 History release rosuvastatin 5 mg tablet 5 mg PO QAM 08/16/20 11/18/22 History vitamin B complex (Complex B-100 1 tab PO QAM 01/16/21 11/18/22 History tablet,extended release) buspirone 10 mg tablet 10 mg PO BID 02/01/21 11/18/22 History oxycodone 5 mg tablet 5 mg PO Q8H PRN pain #47 tabs 11/15/22 11/18/22 Rx Past Med/Surg History Medical History Anxiety Cerda esophagus Chronic kidney disease Stage III Depression GERD (gastroesophageal reflux disease) History of COVID-19 Dx 2019, mild symptoms History of high cholesterol Left flank pain, chronic Following with PCP and possibly PT Pain worsens with laying flat or on left side PE (pulmonary embolism) B/L 2011, previously on coumadin Seizure 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 S/P cholecystectomy Lap cholecystectomy (02/15/19): Grade 2 view, MAC 3.0, ETT 7.0 at [facility]. No issues noted per post-op anesthesia progress note. 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 Range of motion was not tested due to the known fracture. Mild to moderate swelling and ecchymosis. Motor and sensory function is intact in the median, ulnar, radial, and axillary nerve distributions. Results & Data ([facility]) Diagnostic Findings Left shoulder x-rays obtained in the emergency department on November 15 reviewed. They show reverse total shoulder arthroplasty components in good position. There is a periprosthetic proximal humerus fracture just at the distal tip of the humeral stem. No obvious evidence of loosening or instability of the humeral component. Minimal fracture comminution.
[~2022-11-20 11:58] MED LIST changes: +BUPIVACAINE 0.5 % 5 MG/1 ML PF 10ML VIAL ONE
[2022-11-20] MEDS ORDERED: ATROPINE SULFATE 0.1 MG/ML 10ML SYR IV PRN (12:31)
[2022-11-20] MEDS ORDERED: ePHEDrine sulfate 50 MG/ML AMP IV PRN (12:31)
[2022-11-20] MEDS ORDERED: ONDANSETRON INJ 2 MG/ML 2 ML VIAL IV PRN ×2 (12:31→18:01)
[2022-11-20] MEDS ORDERED: fentaNYL citrate 100 MCG/2 ML VIAL ONE (12:36)
[2022-11-20] MEDS ORDERED: MIDAZOLAM HCL 1 MG/ML 2ML VIAL ONE (12:36)
--- NOTE | 2022-11-20 12:42 | History & Physical Bridge Note ---
Date of Service November 20, 2022 History & Physical Bridge Note I have examined the patient, reviewed the History & Physical and in the interval since the performance of the History & Physical I have noted the following changes of clinical significance: New CT scan of the left shoulder was reviewed. It does show extension of a longitudinal fracture line up into the proximal humeral segment, immediately adjacent to the humeral stem implant and extending up through the humeral calcar area. I advised patient that this makes revision total shoulder arthroplasty much more likely rather than ORIF, but final decision will still be made intraoperatively.
[2022-11-20] MEDS ORDERED: ROCURONIUM BROMIDE 10 MG/ML 5 ML VIAL IV ONE (13:48)
[2022-11-20] MEDS ORDERED: PROPOFOL IV EMULSION 10 MG/ML 20 ML VIAL IV ONE (13:48)
[2022-11-20] MEDS ORDERED: ONDANSETRON INJ 2 MG/ML 2 ML VIAL ONE ×2 (13:48→15:01)
[2022-11-20] MEDS ORDERED: PHENYLEPHRINE 100MCG/ML 5ML SYR ONE (13:48)
[2022-11-20] MEDS ORDERED: ePHEDrine sulfate 50 MG/ML AMP ONE (14:05)
--- NOTE | 2022-11-20 14:38 | Electrocardiogram Report ---
Test Reason : Blood Pressure : / mmHG Vent. Rate : 062 BPM Atrial Rate : 062 BPM P-R Int : 172 ms QRS Dur : 078 ms QT Int : 432 ms P-R-T Axes : 061 -10 029 degrees QTc Int : 438 ms Normal sinus rhythm Normal ECG When compared with ECG of 18-NOV-2022 15:34, Premature ventricular complexes are no longer Present Confirmed by Gianfranco Coates ([id number]) on 11/20/2022 2:37:38 PM Referred By: Cruz Farmer Confirmed By:Gianfranco Coates
[2022-11-20] MEDS ORDERED: PHENYLEPHRINE HCL 10 MG/ML VIAL ONE (15:01)
[2022-11-20] MEDS ORDERED: GLYCOPYRROLATE 0.2 MG/ML VIAL ONE (15:58)
[2022-11-20] MEDS ORDERED: NEOSTIGMINE METHYLSULFATE 1 MG/ML 10ML VIAL ONE (15:58)
--- NOTE | 2022-11-20 16:15 | Post Operative Brief Note ---
Immediate Post Op Note v1 Date of Surgery November 20, 2022 Pre & Post Diagnosis Operation Date: 11/20/22 12:30 Pre-Op Diagnosis: Left Shoulder Periprosthetic Proximal Humerus Fracture Post-Op Diagnosis: Left Shoulder Periprosthetic Proximal Humerus Fracture I identified the patient and participated in the time-out.: Yes Procedure Operation Date: 11/20/22 12:30 Actual Procedures p Left Shoulder Open Reduction Internal Fixation of Periprosthetic Proximal Humerus Fracture with Revision of Humeral Component(Left) - Cruz Farmer M.D. Surgeon Cruz Farmer MD Crystalizer Operator Prince Kent PA-C Estimated Blood Loss 125 Findings Consistent with Post-Op Diagnosis
--- NOTE | 2022-11-20 16:23 | Operative Report ---
Post Operative Report Pre & Post Diagnosis Operation Date: 11/20/22 12:30 Pre-Op Diagnosis: Left Shoulder Periprosthetic Proximal Humerus Fracture Post-Op Diagnosis: Left Shoulder Periprosthetic Proximal Humerus Fracture I identified the patient and participated in the time-out.: Yes Procedure Operation Date: 11/20/22 12:30 Actual Procedures Left shoulder open reduction and internal fixation of periprosthetic proximal humerus fracture (83053) with revision of humeral component of previous reverse total shoulder arthroplasty (19911) - Cruz Farmer M.D. Surgeon Cruz Farmer MD Event Organizer Prince Kent PA-C Estimated Blood Loss 125 Findings Consistent with Post-Op Diagnosis Specimens None Drains None Anesthesia Type General Regional Complications none Disposition Disposition: Recovery Room Indications Ms. Wong is a 77-year-old female who previously underwent a left reverse total shoulder arthroplasty in March 2022 with good results. She was doing well until she slipped and had a ground-level fall directly onto that left arm on 11/15/22. History, clinical exam, and imaging were consistent with the above diagnosis. Risks, benefits, and alternatives of surgery were explained in detail. The patient understood all this and wished to proceed. Description of Procedure Components Implanted: Tornier Revision Reverse Total Shoulder implants Aequalis Flex Revive modular revision humeral stem: 15mm proximal body, 20mm spacer x 2, [id number] fully coated distal stem, 40mm assembly screw, locking cap (total length 170mm) Humeral tray: 3.5 mm offset, +0mm thickness Polyethylene insert: 39mm, +6mm thickness Synthes stainless steel cerclage cables x 4 Patient was identified in the preoperative holding area. Operative extremity was marked. Regional blockade was given by the Anesthesia Staff. Patient was then brought back to the operating room, and general anesthesia was induced without complication. Appropriate weight-based dose of Ancef was infused intravenously for antibiotic prophylaxis. The patient was then placed in the beachchair position. Left arm was then prepped and draped in a standard sterile fashion using Chlorhexidine prep. Previous deltopectoral incision was reopened and extended distally as necessary during the procedure for proper exposure and visualization of the fracture site. Proximally, previously placed reverse total shoulder arthroplasty components were exposed. The glenoid components appeared intact and stable, and therefore the glenosphere and baseplate were not revised during this procedure. As I came down onto the humeral shaft, a comminuted proximal humerus fracture was noted. There is a significantly displaced fracture at the distal tip of the previous humeral stem, with about 100% displacement of the humeral shaft. However, there were multiple fracture lines extending proximally around the humeral stem, which was found to be grossly loose. It was very easily removed just with manual pressure. There were at least 4 separate comminuted proximal humerus fracture fragments. I first planned to place provisional cerclage cables around these comminuted proximal fragments to hold them in rough anatomic alignment during the procedure. Previous humeral stem was replaced in the proximal humerus to avoid over-compression of the fragments. Two Synthes stainless steel cerclage cables were passed around the proximal humeral segment to capture these multiple comminuted fracture fragments. While passing the cables, I was very careful to keep the cable passer directly against the humerus to avoid entrapment of surrounding soft tissue structures. The cables were then tensioned to 40 kg of pressure, but were not crimped. Temporary tensioner tip was left on the cable to keep tension on these cables and hold the fracture fragments reduced. I then again removed the previous unstable humeral stem. The main displaced fracture at the proximal aspect of the humeral shaft was then reduced and held with a reduction clamp. Sounding reamer was then passed down the humeral shaft. I got good cortical chatter distally with an 11 mm diameter reamer. Proper reamer depth in the humeral shaft distal to the fracture site and fracture reduction were verified under fluoroscopic imaging, and a 170 mm implant length was selected. 15 mm proximal body width was selected as an appropriate proximal implant sized to fill the proximal void left by the previous humeral component. Revision humeral stem modular components were then assembled on the back table. Assembly screw was passed through the components and tightened with a torque limiting wrench. Locking cap was then inserted over the assembly screw and tightened with the torque limiting wrench. The assembled humeral stem was then implanted in the humerus and impacted to an appropriate depth and version. I then passed another cerclage cable directly at the main fracture site across the oblique fracture line to hold this fracture line reduced. Finally, a fourth cerclage cable was passed more distally, as there was slight propagation of a longitudinal fracture line down the humeral shaft; this tapered out after only about 2 cm. Again, cable passer was carefully passed around the humeral shaft to keep it directly against bone to avoid entrapment of soft tissue structures under the cable, most notably the radial nerve along the posterior aspect of the humerus. All 4 cerclage cables were then tensioned to approximately 50 kg of pressure, then crimped and cut. This provided good reduction of the multiple comminuted fracture fragments and good stability of the revision humeral stem. Finally, trial tray and polyethylene insert were attached to the revision stem, and the shoulder was reduced. I took the shoulder through gentle range of motion to ensure good stability and proper soft tissue tension, as well as maintenance of reduction of the humeral fracture fragments. Final adjustments to size and offset of the implants were completed, and final humeral tray and polyethylene insert were impacted into place onto the revision humeral stem. Shoulder was then again reduced and again taken through gentle range of motion. There is good stability of the shoulder, proper soft tissue tension, and maintenance of reduction of all of the numerous fracture fragments. Wound was then copiously irrigated with sterile saline. Distally, deltoid and pectoralis tendons were repaired to each other using #1 Vicryl suture. Deep fascia was closed with 0 V-lock suture. Subcutaneous tissue was closed with 2-0 V-lock, and skin was closed with 3-0 V-lock. Skin was then sealed with Dermabond. Sterile dressings were then applied with a waterproof silver- impregnated dressing, and the arm was placed into a sling. The patient was awakened from anesthesia and taken to the Post Anesthesia Care Unit in stable condition. There were no immediate complications from the procedure. I was present and scrubbed for the entire procedure, with the exception of final skin closure and dressing application. Due to the complex nature of the procedure, the entire surgery was performed with the operational assistance of Prince Kent PA-C. The assistant buyer, under direct supervision, was involved in the performance of all aspects of the surgical procedure including hemostasis, tissue incision and retraction, instrument management, patient positioning, and wound closure. I attest to the content of the Intraoperative Record and any orders documented therein. Any exceptions are noted below.
--- NOTE | 2022-11-20 16:34 | Fluoroscopy Report ---
FL shoulder LT min 2V CLINICAL HISTORY: LEFT ORIF SHOULDER TECHNIQUE: 4 views were obtained with the C-arm in the OR with the above procedure. Total fluoroscopy time was 26.2 seconds. Radiation dose was 1.07 mGy. Comparison: Comparison is made to left shoulder radiograph 11/15/2022 FINDINGS/IMPRESSION: Intraoperative images were obtained of left shoulder open reduction and internal fixation. Please correlate with intraoperative fluoroscopy and operative report. ACT 112: Negative or not required by law. Electronically signed by: Rajesh Dotson M.D. 11/20/2022 4:32 PM
[2022-11-20] MEDS: fentaNYL citrate 100 MCG/2 ML VIAL IV PRN ×4 (16:50→17:06)
--- NOTE | 2022-11-20 17:09 | XRay Report ---
XR shoulder LT min 2V routine CLINICAL HISTORY: Post shoulder surgery TECHNIQUE: 3 views of the left shoulder were obtained. Comparison: Comparison is made to shoulder radiograph 11/16/2019 FINDINGS: Postoperative changes of humeral orthopedic hardware placement. The fracture fragments are in anatomi c alignment. IMPRESSION: Expected postoperative appearance status post placement of shoulder arthroplasty. ACT 112: Negative or not required by law. Electronically signed by: Rajesh Dotson M.D. 11/20/2022 5:08 PM
[2022-11-20] MEDS: HYDROmorphone INJ 1 MG/ML SYRINGE IV PRN ×4 (17:11→17:26)
--- NOTE | 2022-11-20 17:28 | Anesthesiology Progress Note ---
Date of Service November 20, 2022 Anesthesia Post Procedure Vital Signs Vital Signs: Temp Pulse Resp BP Pulse Ox O2 Del Method O2 Flow Rate 11/20/22 17:10 69 15 121/65 100 Nasal Cannula 2 11/20/22 17:00 67 18 100/59 L 95 Room Air 11/20/22 16:50 65 20 99/58 L 98 Room Air 11/20/22 16:40 60 17 103/57 L 100 Oxymask 8 11/20/22 16:34 97.5 F L 72 18 87/53 L 94 Oxymask 8 11/20/22 12:35 98.4 F 66 20 140/77 94 Room Air Pain Intensity Left Shoulder: Pain Intensity: 5 Transfer of Care Handoff Completed per policy Notes Mental Status: alert / awake / arousable and participated in evaluation Patient Amnestic to Procedure: Yes Nausea / Vomiting: adequately controlled Pain: adequately controlled and improving with treatment Airway Patency, RR, SpO2: stable & adequate BP & HR: stable & adequate Hydration State: stable & adequate Anesthetic Complications: no major complications apparent and Pt Satisfied with anesthetic care
[2022-11-20] MEDS ORDERED: NALOXONE HCL 0.4 MG/1 ML VIAL/CARP IV PRN (18:01)
[2022-11-20] MEDS ORDERED: MAGNESIUM HYDROXIDE SUSP 30 ML UDC PO PRN (18:01)
[2022-11-20] MEDS ORDERED: bisacodyL 10 MG SUPP PR PRN (18:01)
[2022-11-20] MEDS ORDERED: METOCLOPRAMIDE HCL INJ 5 MG/ML 2 ML VIAL IV PRN (18:01)
[2022-11-20] MEDS: SODIUM CHLORIDE 0.9% 1000ML 1,000 ML IV SCH (18:18)
[2022-11-20] MEDS: ACETAMINOPHEN 500 MG TAB PO SCH (18:34)
[2022-11-20] MEDS: busPIRone 5 MG TAB PO SCH (20:21)
[2022-11-20] MEDS: PANTOprazole 40 MG TAB PO SCH (20:21)
[2022-11-20] MEDS: lamoTRIgine 100 MG TAB PO SCH (20:21)
[2022-11-20] MEDS: IBUPROFEN 600 MG TAB PO SCH (20:21)
[2022-11-20] MEDS: DOCUSATE SODIUM 100 MG CAP PO SCH (20:21)
[2022-11-20] MEDS: SENNA 8.6 MG TAB PO SCH (20:22)
[2022-11-20] MEDS: ceFAZolin 2000MG 2,000 MG/15 ML SYR IV SCH (22:09)
[2022-11-21] MEDS: ACETAMINOPHEN 500 MG TAB PO SCH ×5 (00:50→23:28)
[2022-11-21] MEDS: IBUPROFEN 600 MG TAB PO SCH ×4 (03:55→20:31)
[2022-11-21] MEDS: SODIUM CHLORIDE 0.9% 1000ML 1,000 ML IV SCH (03:59)
[2022-11-21] MEDS: ceFAZolin 2000MG 2,000 MG/15 ML SYR IV SCH (06:12)
[2022-11-21 09:33] LABS: Hemoglobin 9.8 g/dl (12.0-16.0); Immature Granulocytes # (auto) 0.01 K/uL (0.01-0.20); Immature Granulocytes % (auto) 0.1 %; Lymphocytes # (auto) 1.19 K/uL (1.2-3.4); Lymphocytes % (auto) 16.2 %; Mean Corpuscular Hemoglobin 32.3 pg (25.0-34.0); Mean Corpuscular Hgb Conc 32.7 g/dL (32.0-36.0); Mean Platelet Volume 9.4 fL (9.4-12.4); Monocytes # (auto) 0.41 K/uL (0.11-0.59); Monocytes % (auto) 5.6 %; Neutrophils # (auto) 5.75 K/uL (1.40-6.50); Neutrophils % (auto) 78.1 %; Platelet Count 187 K/uL (130-400); RDW Coefficient of Variation 12.7 % (11.5-14.5); RDW Standard Deviation 45.7 fL (36.4-46.3); Red Blood Count 3.03 M/uL (4.20-5.40); White Blood Count 7.36 K/ul (4.8-10.8)
--- NOTE | 2022-11-21 09:40 | Orthopedic Progress Note ---
Date of Service November 21, 2022 Assessment & Plan (1) Periprosthetic fracture around internal prosthetic left shoulder joint, initial encounter: Plan: Pt is POD #1 from Left ORIF of periprosthetic proximal humerus fx with revision of humeral component of previous reverse TSA. -Pain regime as written -DVT ppx with ASA 325 daily, SCDs and TEDs -Will order a PT evaluation at this time due to the patient needing a nurse to assist her out of bed and her feeling slightly more weak than her baseline. Pt does live at home with her and states she will have help at home. If pt does well today she may be able to be discharged home. If patient needs more therapy will keep overnight and will plan for d/c tomorrow. Admission and Anticipated Discharge Date Admission Date: November 20, 2022 Subjective Pt is POD #1 from Left ORIF of periprosthetic proximal humerus fx with revision of humeral component of previous reverse TSA. -Pt doing well this morning, sitting up in bed and eating breakfast during exam. -Pt states she is having slight numbness from her nerve block, however is improving -States pain is well controlled with current regime -Does feel slightly more "weak" than her baseline and she has been hesitant to ambulate on her own. -Denies CP, SOB, dizziness, abdominal pain, fevers or chills Review of Systems Review of Systems: All systems reviewed & are unremarkable except as noted in Subjective Physical Exam Physical Exam: Left shoulder with dressing in place, area is c/d/i, and sling in place. Pt able to wiggle fingers without issue, good ROM to left wrist, capillary refill less than 2 seconds, perfusion and sensation grossly intact. Results & Data ([facility]) Vital Signs (Past 12 Hours) Vital Signs Temp Pulse Resp BP Pulse Ox O2 Del Method 11/21/22 07:58 Room Air 11/21/22 07:41 36.6 C 77 16 96/55 L 94 Room Air 11/21/22 02:49 92/54 L 11/21/22 02:43 36.7 C 75 16 85/41 L 93 Room Air Laboratory Results Laboratory Results WBC 7.36 K/ul (4.8-10.8) 11/21/22 09:07 RBC 3.03 M/uL (4.20-5.40) L 11/21/22 09:07 Hgb 9.8 g/dl (12.0-16.0) L 11/21/22 09:07 Hct 30.0 % (37.0-47.0) L 11/21/22 09:07 MCV 99.0 fL (80.0-100.0) 11/21/22 09:07 MCH 32.3 pg (25.0-34.0) 11/21/22 09:07 MCHC 32.7 g/dL (32.0-36.0) 11/21/22 09:07 RDW Std Deviation 45.7 fL (36.4-46.3) 11/21/22 09:07 RDW Coeff of Bill 12.7 % (11.5-14.5) 11/21/22 09: Plt Count 187 K/uL (130-400) 11/21/22 09:07 MPV 9.4 fL (9.4-12.4) 11/21/22 09:07 Immature Gran % (Auto) 0.1 % 11/21/22 09:07 Neut % (Auto) 78.1 % 11/21/22 09:07 Lymph % (Auto) 16.2 % 11/21/22 09:07 Barber % (Auto) 5.6 % 11/21/22 09:07 Eos % (Auto) 0.0 % 11/21/22 09:07 Baso % (Auto) 0.0 % 11/21/22 09:07 Neut # (Auto) 5.75 K/uL (1.40-6.50) 11/21/22 09:07 Lymph # (Auto) 1.19 K/uL (1.2-3.4) L 11/21/22 09:07 Barber # (Auto) 0.41 K/uL (0.11-0.59) 11/21/22 09:07 Eos # (Auto) 0.00 K/uL (0-0.50) 11/21/22 09:07 Baso # (Auto) 0.00 K/uL (0-0.2) 11/21/22 09:07 Immature Gran # (Auto) 0.01 K/uL (0.01-0.20) 11/21/22 09:07 SARS-CoV-2, RNA, NAAT NEGATIVE (NEGATIVE) 11/20/22 12:17 Blood Type A Positive 11/20/22 12:24 Antibody Screen NEGATIVE 11/20/22 12:24 Impressions Shoulder X-Ray 11/20/22 16:38 XR shoulder LT min 2V routine CLINICAL HISTORY: Post shoulder surgery TECHNIQUE: 3 views of the left shoulder were obtained. Comparison: Comparison is made to shoulder radiograph 11/16/2019 FINDINGS: Postoperative changes of humeral orthopedic hardware placement. The fracture fragments are in anatomic alignment. IMPRESSION: Expected postoperative appearance status post placement of shoulder arthroplasty. ACT 112: Negative or not required by law. Electronically signed by: Rajesh Dotson M.D. 11/20/2022 5:08 PM
[2022-11-21] MEDS: DOCUSATE SODIUM 100 MG CAP PO SCH ×2 (09:47→20:33)
[2022-11-21] MEDS: CITALOPRAM 20 MG TAB PO SCH (09:48)
[2022-11-21] MEDS: ROSUVASTATIN CALCIUM 5 MG TAB PO SCH (09:48)
[2022-11-21] MEDS: busPIRone 5 MG TAB PO SCH ×2 (09:48→20:33)
[2022-11-21] MEDS: PANTOprazole 40 MG TAB PO SCH ×2 (09:48→20:32)
[2022-11-21] MEDS: lamoTRIgine 100 MG TAB PO SCH ×2 (09:48→20:32)
[2022-11-21] MEDS: ASPIRIN 325 MG ECTAB PO SCH (09:49)
[2022-11-21] MEDS: VITAMIN B COMPLEX TAB PO SCH (09:49)
[2022-11-21] MEDS: MULTIVITAMIN TAB PO SCH (09:49)
[2022-11-21 09:57] LABS: Calcium 9.1 mg/dl (8.5-10.1); Potassium 4.2 mmol/L (3.5-5.1)
[2022-11-21 10:02] LABS: BUN Creatinine Ratio 14.5 (10-20); Creatinine Clr Calc Pharmacy 61.3 ml/min; Est GFR (African American) 79.4 ml/min; Est GFR (Non-African American) 68.5 ml/min
[2022-11-21] MEDS: clonazePAM 0.5 MG TAB PO PRN (16:15)
[2022-11-21] MEDS: SENNA 8.6 MG TAB PO SCH (20:31)
[2022-11-22] MEDS ORDERED: oxyCODONE HCL IR 5 MG TAB (IMMEDIATE RELEASE) PO PRN ×3 (00:51→10:58)
[2022-11-22] MEDS: IBUPROFEN 600 MG TAB PO SCH ×4 (04:07→20:52)
[2022-11-22] MEDS: ACETAMINOPHEN 500 MG TAB PO SCH ×3 (06:27→17:47)
--- NOTE | 2022-11-22 08:26 | Orthopedic Progress Note ---
Date of Service November 22, 2022 Assessment & Plan (1) Periprosthetic fracture around internal prosthetic left shoulder joint, initial encounter: Plan: Pt is POD #2 Left ORIF of periprosthetic proximal humerus fx with revision of humeral component of previous reverse TSA. -Pain regimen as written -DVT ppx with ASA 325 daily, SCDs and TEDs -Continue PT evaluation at this time. Pt does live at home with her and states she will have help at home. If pt does well today she may be able to be discharged home. Admission and Anticipated Discharge Date Admission Date: November 20, 2022 Supervising Physician Co-Signing Physician Notes Patient seen and examined. Agree with VIPIN Roche's note as above, although there have been additional events since then. Patient nurse reports that she had a choking episode this morning when taking her medications. She reports that this has been an issue for her at home over the past few months. Nursing reports that there was about 30 seconds that she was choking and sputtering on either the pill or the water, but was able to cough the pill out with some back slaps. She is currently resting comfortably and in no distress. Oxygen saturations are in the low 90s. She does appear slightly somnolent and says she is having trouble focusing on me. She did receive about 10 mg of oxycodone at about 2 AM last night. She has not had any other narcotic since surgery. She reports that she really was not having much pain last night, and it is therefore not clear why she was given 2 tabs of the oxycodone instead of 1. I will switch her oxycodone order to only 1 tab so she does not get excessive narcotics. She currently denies any significant pain in her left arm or shoulder. Motor and sensory function is intact in the median, radial, and ulnar nerve distributions with good strength. Left shoulder dressing is clean, dry, intact. Postoperative x-rays look great. Advised her not to do any pushing, pulling, lifting with that left arm at all. She may come out of the sling for elbow range of motion exercises and very gentle passive pendulum exercises of her shoulder, but I really do not want her doing a lot of active motion or reaching with that arm. Internal medicine service has been consulted for her choking episode this morning. We will await their input. Discharge disposition pending. Subjective Postop day 2 Patient lying in bed awake and alert. States that she has a little bit of t remor in her right hand this morning and is unsure if it is about the same or little bit worse than yesterday. Pain is controlled in the left shoulder. She denies shortness of breath, chest pain, lightheadedness. Her Klonopin was restarted yesterday. There is question of her taking it regularly at home but she states she does not take it 3 times a day. It is listed as as needed. She understands that this has been reordered and that she will need to ask for it as needed. She is hoping to go home today. Results & Data ([facility]) Vital Signs (Past 12 Hours) Vital Signs Temp Pulse Resp BP Pulse Ox O2 Del Method 11/22/22 07:38 36.8 C 71 16 146/75 H 96 Room Air 11/21/22 20:29 36.8 C 79 18 103/64 95 Room Air
[2022-11-22] MEDS: ASPIRIN 325 MG ECTAB PO SCH (09:09)
[2022-11-22] MEDS: VITAMIN B COMPLEX TAB PO SCH (09:09)
[2022-11-22] MEDS: MULTIVITAMIN TAB PO SCH (09:09)
[2022-11-22] MEDS: ROSUVASTATIN CALCIUM 5 MG TAB PO SCH (09:09)
[2022-11-22] MEDS: clonazePAM 0.5 MG TAB PO PRN (09:09)
[2022-11-22] MEDS: CITALOPRAM 20 MG TAB PO SCH (09:09)
[2022-11-22] MEDS: busPIRone 5 MG TAB PO SCH ×2 (09:10→20:53)
[2022-11-22] MEDS: DOCUSATE SODIUM 100 MG CAP PO SCH ×2 (09:10→20:52)
[2022-11-22] MEDS: PANTOprazole 40 MG TAB PO SCH ×2 (09:10→20:53)
[2022-11-22] MEDS: lamoTRIgine 100 MG TAB PO SCH ×2 (09:10→20:53)
--- NOTE | 2022-11-22 09:46 | Hospitalist Consultation ---
Date of Consultation November 22, 2022 Assessment & Plan (1) Aspiration into airway: With choking event this morning, had not had events such as this in the past. Patient was evaluated by speech therapy who recommended easy to chew diet, aspiration precautions, but no clear obvious evidence of aspiration on their evaluation. Recommend easy to chew diet and outpatient evaluation by neurology as described below. (2) Tremor: History of tremor progressing over the last several years, typically on propranolol 10 mg 3 times daily, however not listed on patient's medication list on my review. Suspect that resuming this medication will improve her tremor somewhat. Regarding her chronic worsening tremor, recommended close follow-up with her outpatient neurologist to further evaluate her medications and symptoms in the near future. Tremor could also be potentially worsened this admission from anesthesia, opiate pain medications, so may also just improve with time. She did have a head CT and C-spine CT after her fall which resulted in the shoulder fracture, which did not show any acute intracranial abnormalities, so do not suspect stroke or intracranial bleeding as source of worsening tremors. Continue home medication lamotrigine for history of seizures, no recent episodes , last seizure was decades ago per patient report. (3) Anemia: Hemoglobin trend this admission 12.8>9.8>9.4, stable postoperative in the last 24 hours. Do not think she needs further monitoring unless signs of hemodynamic instability or to present themselves. Should recover in the next several months, followed by PCP. Plan Defer other care plans, including orthopedic care, to primary service. Hospitalist service will sign off at this time. Thank you for your consult, and please contact us with any questions. History of Present Illness Reason for Consultation: Aspiration event Requesting Physician: Cruz Farmer Attending Physician: Cruz Farmer History of Present Illness 77-year-old female past medical history significant for CKD, GERD, anxiety, seizures, history of tremor, left periprosthetic humerus fracture admitted by orthopedic service for left shoulder ORIF and revision of reverse total shoulder, hospitalist service consulted this morning due to concern for aspiration and worsening tremors since surgery. Earlier today, patient was eating and had a choking episode, bolus of food was able to be dislodged with aid by nursing staff. Patient reports that she has noted some swallowing difficulty in the recent past, where it will feel like it takes a while for the food to go all the way down her esophagus. However, she does not note any previous choking or coughing events other than today. She denies any worsening of reflux symptoms, chest pain, shortness of breath. Following this episode, she is saturating well on room air at 96%. With regard to her tremors, she and her both report that she has had a longstanding tremor for several years, and was started on propranolol 10 mg 3 times daily a bit over 6 months ago by her outpatient neurology office (typically sees Eliz Mcwilliams). She feels that the propranolol helps some, but her reports that the tremor has been progressive in general during the time she has had it and that it seems to be worsening. Patient notes that in the last 24 hours, specifically today, her tremor is worse compared to prior to hospitalization. She denies any headache, focal strength deficit or sensory deficit. Allergies Allergy/AdvReac Type Severity Reaction Status Date / Time phenazopyridine Allergy Intermediate Pruritis Verified 11/20/22 12:27 Sulfa (Sulfonamide Allergy Intermediate Hives Verified 11/20/22 12:27 Antibiotics) domperidone AdvReac Intermediate Balance Verified 11/20/22 12:27 issues metoclopramide AdvReac Intermediate Balance Verified 11/20/22 12:27 issues Home Medications Medication Instructions Recorded Confirmed Type citalopram 20 mg tablet 20 mg PO QAM 05/31/18 11/20/22 History clonazepam 0.5 mg tablet 0.5 mg PO BID PRN Anxiety 05/31/18 11/20/22 History lamotrigine 200 mg tablet 400 mg PO BID 05/31/18 11/20/22 History pantoprazole 20 mg tablet,delayed 20 mg PO BID 04/02/20 11/20/22 History release rosuvastatin 5 mg tablet 5 mg PO QAM 08/16/20 11/20/22 History vitamin B complex (Complex B-100 1 tab PO QAM 01/16/21 11/20/22 History tablet,extended release) buspirone 10 mg tablet 10 mg PO BID 02/01/21 11/20/22 History oxycodone 5 mg tablet 5 mg PO Q8H PRN pain #47 tabs 11/15/22 11/20/22 Rx Patient History Medical History (Updated 11/22/22 @ 14:38 by Arabella Nicole DO) Anxiety Cerda esophagus Chronic kidney disease Stage III Depression GERD (gastroesophageal reflux disease) History of COVID-19 Dx 2019, mild symptoms History of high cholesterol Left flank pain, chronic Following with PCP and possibly PT Pain worsens with laying flat or on left side PE (pulmonary embolism) B/L 2011, previously on coumadin Seizure Reason for Lamictal Seizure free for many years Temporomandibular joint disorder + clicking, + locking 10/2021 at dentist (unlocked with massage) Tremor Surgical History H/O colonoscopy H/O esophagogastroduodenoscopy H/O vein stripping History of back surgery Thoracic/lumbar History of hysterectomy Total Hx of total shoulder replacement lt. S/P cholecystectomy Lap cholecystectomy (02/15/19): Grade 2 view, MAC 3.0, ETT 7.0 at [facility]. No issues noted per post-op anesthesia progress note. Family History Other Heart disease No family history of adverse response to anesthesia Ovarian cancer Social History Smoking Status: Never smoker Second Hand Exposure: No; Do You Dip or Chew Tobacco: No; Tobacco Cessation Education Requested by Patient: No Hx Alcohol Use: No Hx Substance Use: No Preferred Language: Montserratian Communication Ability: Effective Visual Impairment: No Limitations Neurosurgeon Required: No Beliefs That Will Affect Care: None marital status: Current Living Situation: Spouse Other Information That Helps Us Care for You: No Feels Safe at Home: Yes Safety Concerns: Feels Safe At This Time Assistive Devices: Denture - Lower and Glasses Assistive Devices Comment: partial lower denture Review of Systems Review of Systems: All systems reviewed & are unremarkable except as noted in Subjective Physical Exam Constitutional: WD/WN, vitals as above Respiratory: normal respiratory effort, lungs clear to auscultation Cardiovascular: RRR, no murmur, no edema Gastrointestinal (Abdomen): normal bowel sounds, soft, nontender, no hepatosplenomegaly Musculoskeletal: Left arm in sling Skin: no rashes, warm and dry Neurologic: AAOx3, normal speech. PERRLA, EOMI, no nystagmus. Bilateral UE, LE, and face without sensory or motor deficits. Patient noted to have tremor that worsens with [id number] and with holding utensils for eating Psychiatric: A+Ox3, euthymic affect Results & Data Results & Data ([facility]) Vital Signs (Past 12 Hours) Vital Signs Temp Pulse Resp BP Pulse Ox O2 Del Method 11/22/22 08:22 Room Air 11/22/22 07:38 36.8 C 71 16 146/75 H 96 Room Air PG Care Time/CCT Total # of Minutes Spent Total Time Spent with Patient: Total time spent is greater than 50% in coordination of care (as documented) at patient's floor/unit and/or counseling patient: Coding Level of Care Code 77034 IN/OBS CONSULT LVL 4,60M Diagnoses Aspiration into airway T17.908A Tremor R25.1 Anemia D64.9
--- NOTE | 2022-11-22 11:27 | XRay Report ---
XR chest 1V portable CLINICAL HISTORY: aspiration TECHNIQUE: Single frontal radiograph of the chest was obtained. Comparison: Comparison is made to chest radiographs 03/11/2022 FINDINGS: Left reverse shoulder arthroplasty is seen. Cardiomegaly is noted. Elevation of left hemidiaphragm. N o evidence of pleural effusion or pneumothorax. IMPRESSION: No acute abnormality and in particular no evidence of airspace opacity to suggest aspiration. ACT 112: Negative or not required by law. Electronically signed by: Rajesh Dotson M.D. 11/22/2022 11:25 AM
[2022-11-22 13:39] LABS: Hemoglobin 9.4 g/dl (12.0-16.0); Mean Corpuscular Hemoglobin 32.8 pg (25.0-34.0); Mean Corpuscular Hgb Conc 33.6 g/dL (32.0-36.0); Mean Corpuscular Volume 97.6 fL (80.0-100.0); Mean Platelet Volume 9.7 fL (9.4-12.4); Platelet Count 194 K/uL (130-400); RDW Coefficient of Variation 12.9 % (11.5-14.5); RDW Standard Deviation 45.7 fL (36.4-46.3); Red Blood Count 2.87 M/uL (4.20-5.40); White Blood Count 6.53 K/ul (4.8-10.8)
[2022-11-22] MEDS: PROPRANOLOL HCL 10 MG TAB PO SCH ×2 (14:54→21:12)
[2022-11-22] MEDS: SENNA 8.6 MG TAB PO SCH (20:53)
[2022-11-23] MEDS: ACETAMINOPHEN 500 MG TAB PO SCH ×2 (01:08→06:30)
[2022-11-23] MEDS: IBUPROFEN 600 MG TAB PO SCH ×2 (03:40→08:33)
--- NOTE | 2022-11-23 08:25 | Orthopedic Progress Note ---
Date of Service November 23, 2022 Assessment & Plan (1) Periprosthetic fracture around internal prosthetic left shoulder joint, initial encounter: Plan: Pt is POD #3 Left ORIF of periprosthetic proximal humerus fx with revision of humeral component of previous reverse TSA. -Pain regimen as written -DVT ppx with ASA 325 daily, SCDs and TEDs -Continue PT -Choking episode during taking pills yesterday. Noted decreased oxygen saturation. Patient evaluated by speech therapy and patient put on aspiration precautions and special diet. Dr. Guan contacted me and plans were to consult GI as well per speech therapy recommendations. We will await their input. Per Dr. Guan, we will plan to transfer the patient to their service. Await GI input. -Hospitalist input much appreciated. -Please call us with any questions or concerns regarding her left upper e xtremity or further needs for discharge. Admission and Anticipated Discharge Date Admission Date: November 20, 2022 Supervising Physician Co-Signing Physician Notes Came to see patient this morning, but she was already discharged. Original plan was to transfer her to the medicine service, then get GI work-up for her choking episode. Per nursing, they decided to do this work-up as an outpatient, and she was discharged from the medicine service this morning. Follow-up with me in clinic as scheduled. Subjective Postop day 3 Patient lying in bed sleeping upon arrival. Easily awoken. No complaints this morning. States she is feeling better today. States she has no pain in her left arm and that it feels well. Patient had an episode of choking while taking medication yesterday. Noted in Dr. Farmer's addendum as well as Dr. Arabella Dennis note. Physical Exam Physical Exam: Silverlon dressing is clean, dry, and intact. Sling is in place. Neurovascular intact. Results & Data ([facility]) Vital Signs (Past 12 Hours) Vital Signs Temp Pulse Resp BP Pulse Ox O2 Del Method 11/23/22 07:50 36.9 C 79 16 106/63 95 Room Air 11/23/22 00:02 36.6 C 84 16 114/61 94 Room Air
[2022-11-23] MEDS: MULTIVITAMIN TAB PO SCH (08:33)
[2022-11-23] MEDS: DOCUSATE SODIUM 100 MG CAP PO SCH (08:33)
[2022-11-23] MEDS: PANTOprazole 40 MG TAB PO SCH (08:33)
[2022-11-23] MEDS: ROSUVASTATIN CALCIUM 5 MG TAB PO SCH (08:33)
[2022-11-23] MEDS: PROPRANOLOL HCL 10 MG TAB PO SCH (08:33)
[2022-11-23] MEDS: CITALOPRAM 20 MG TAB PO SCH (08:34)
[2022-11-23] MEDS: VITAMIN B COMPLEX TAB PO SCH (08:34)
[2022-11-23] MEDS: busPIRone 5 MG TAB PO SCH (08:34)
[2022-11-23] MEDS: lamoTRIgine 100 MG TAB PO SCH (08:34)
[2022-11-23] MEDS: ASPIRIN 325 MG ECTAB PO SCH (08:34)
[2022-11-23] MEDS: clonazePAM 0.5 MG TAB PO PRN (08:38)
--- NOTE | 2022-11-23 09:39 | Discharge Summary ---
Discharge Summary Date of Service November 23, 2022 Notes For Next Care Provider Needs sooner Neurology follow up for tremors, propranolol continued, CT Head no abnormalities GI follow up recommended for difficulty with swallowing (feels like food gets stuck sometimes), patient desired discharge before evaluated by GI in hospital, speech evaluated and swallow without any gross abnormalities Has Ortho follow up for s/p left shoulder repair (initially admitted to Ortho and transferred to Medicine) Admission HPI Per Admitting Provider 04/03/22 - Left reverse total shoulder arthroplasty with biceps tenodesis Ms. Wong returns, but it for a new injury to her left shoulder. Again, she is a 77-year-old female who previously underwent a left reverse total shoulder arthroplasty over 7 months ago in March 2022 with good results. She was doing well until this past weekend. She states that she was at a friend's house and was walking on the hardwood floor and just her socks and slipped and had a ground-level fall onto her left arm. She had immediate pain and difficulty with motion in that arm. She went to the emergency room, where she was diagnosed with fracture. She was placed into a sling and referred here for definitive management. Admission Exam Per Admitting Provider Examination of the left shoulder reveals a well-healed surgical incision without evidence of infection. Range of motion was not tested due to the known fracture. Mild to moderate swelling and ecchymosis. Motor and sensory function is intact in the median, ulnar, radial, and axillary nerve distributions. Principal Dx & Hospital Course #1 = Principal Diagnosis (1) Aspiration into airway: With choking event 11/22, had not had events such as this in the past. Patient was evaluated by speech therapy who recommended easy to chew diet, aspiration precautions, but no clear obvious evidence of aspiration on their evaluation. Recommend easy to chew diet and outpatient evaluation by neurology and GI. GI consult placed for inpatient evaluation, however patient was feeling very anxious and after risk/benefit discussion patient elected to go home this morning with outpatient GI follow up. (2) Tremor: History of tremor progressing over the last several years, typically on propranolol 10 mg 3 times daily, however not listed on patient's medication list from admission. Tremors anticipated to improve with resuming this medication. Regarding her chronic worsening tremor, recommended close follow-up with her outpatient neurologist to further evaluate her medications and symptoms in the near future. Tremor could also be potentially worsened this admission from anesthesia, opiate pain medications, anxiety (not taking her benzo here as often as at home, ordered but has refused a few times). She did have a head CT and C- spine CT after her fall which resulted in the shoulder fracture, which did not show any acute intracranial abnormalities, so do not suspect stroke or intracranial bleeding as source of worsening tremors. Continue home medication lamotrigine for history of seizures, no recent episodes, last seizure was decades ago per patient report. (3) Anemia: Hemoglobin trend this admission 12.8>9.8>9.4, stable postoperatively. Do not think she needs further monitoring unless signs of hemodynamic instability were to present themselves. Should recover in the next several months, follow up with PCP. Discharge Exam Constitutional WD/WN, vitals as above Gastrointestinal (Abdomen) normal bowel sounds, soft, nontender, no hepatosplenomegaly Musculoskeletal left arm in sling Skin no rashes or bruising Psychiatric alert and oriented, anxious affect Updated Medication List Medication Instructions Recorded Confirmed Type citalopram 20 mg tablet 20 mg PO QAM 05/31/18 11/20/22 History clonazepam 0.5 mg tablet 0.5 mg PO BID PRN Anxiety 05/31/18 11/20/22 History lamotrigine 200 mg tablet 400 mg PO BID 05/31/18 11/20/22 History pantoprazole 20 mg tablet,delayed 20 mg PO BID 04/02/20 11/20/22 History release rosuvastatin 5 mg tablet 5 mg PO QAM 08/16/20 11/20/22 History vitamin B complex (Complex B-100 1 tab PO QAM 01/16/21 11/20/22 History tablet,extended release) buspirone 10 mg tablet 10 mg PO BID 02/01/21 11/20/22 History Hospital Stay Data Consultations 11/22/22 09:26 Consult Hospitalist Routine Procedures Performed Operation Date: 11/20/22 12:30 Actual Procedures p Left Shoulder Open Reduction Internal Fixation of Periprosthetic Proximal Humerus Fracture with Revision of Humeral Component(Left) - Cruz Farmer M.D. Diagnostic Imagining Performed 11/20/22 05:00 US - OR guided needle placemen Routine 11/20/22 12:30 FL shoulder LT min 2V Routine Pending Results Patient Have Any Pending Studies at Discharge: No Discharge Instructions Given to Patient (Per Discharging Provider) Things to Watch Out For -Go to the Emergency Room if you have sudden onset of nausea, vomiting, chest pain, shortness of breath, or uncontrollable pain. -Call the clinic or go to the Emergency Room if you have a sudden increase in the amount of wound drainage or the drainage becomes thick, yellow or green, or foul-smelling. -For routine questions, call the clinic at [phone] during regular business hours (8am-5pm). For urgent issues after regular business hours, you may call the clinic to be connected to the on-call physician. Dressings -A special waterproof, silver-impregnated dressing was placed on your shoulder. Keep this dressing in place for 1 week after surgery. You may shower with the waterproof dressing in place, but do not soak the dressing in the bathtub or pool. -One week after surgery, you may remove the waterproof dressing. You may continue to shower, and let water run BRIEFLY over the incision, but do not soak the incision in the bathtub or pool for 2 weeks. You may also gently clean the incision with mild soap and water; pat the incision dry after cleaning-do not r ub the incision. Apply a new dressing daily thereafter. Shoulder Exercises -Keep your operative shoulder in the sling for comfort, except as detailed below. -You should come out of the sling 4-5 times a day for gentle passive pendulum exercises: lean over and swing your arm in a circular pattern. -Do not do any active range of motion of that left shoulder; do not use the muscles in your shoulder to raise your arm. You may do active range of motion exercises of your elbow out of the sling. -Do not push, pull, or lift with that left arm greater than 1 pound. Ice Pack -You may use an ice pack for pain relief. You should use it 20-30 minutes at a time. Place a towel between the ice pack and your skin to prevent frostbite. -You should use the ice pack fairly regularly for the first 1-2 weeks after surgery to help reduce pain and inflammation. -About 2 weeks after your surgery, you should start using heat to loosen up your shoulder prior to doing your stretching exercises, then use the cooling sleeve after your exercises are complete to reduce swelling and pain. Pain Medicines -Your prescriptions for pain medications have already been sent to the pharmacy on file at [facility]. You do not have to take it, or even picker operator the oxycodone, if you do not want to -You have been prescribed an anti-inflammatory (Motrin/ibuprofen) and a non- narcotic pain medicine (Tylenol/acetaminophen). These are your primary pain medications. Take them each every 6 hours as instructed. It is recommended that you stagger these medicines every 3 hours (i.e. take ibuprofen at 8:00 am, then acetaminophen at 11:00 am, then ibuprofen at 2:00 pm, etc) -DO NOT take any additional anti-inflammatories (Advil, Aleve/naproxen, Mobic/meloxicam, Celebrex) or any additional Tylenol/acetaminophen products with these prescribed medications. -You have also been prescribed an additional narcotic pain medication (oxycodone). Take this medicine ONLY for breakthrough pain not controlled by the ibuprofen and acetaminophen if you need it -Do not drive or operate heavy machinery while taking the narcotic medication. -Common side effects of narcotic pain medicines include itching, nausea, constipation, and feeling "loopy". However, if you develop a rash or hives, stop taking the medicine and call the clinic. If you develop swelling in your throat or difficulty breathing, go to the Emergency Room or call 911 IMMEDIATELY. -You may take over the counter stool softeners if needed for constipation. Aspirin -Take a full strength (325mg) aspirin every day for 4 weeks (28 days) to prevent blood clots. Get this at your local pharmacy. -If you were taking a baby aspirin (81mg) prior to surgery, you may resume taking this 81mg dose after you complete the 28-day course of the 325mg strength dose; do not take the 325mg dose in addition to your 81mg dose. -Be aware that you will bruise easier while taking Aspirin; this is normal. However, if you develop a significantly large area of swelling after an injury, or have a cut that will not stop bleeding, call the clinic or go to the Emergency Room immediately. Tremors: Please call your Neurology office to get a hospital follow up for worsening tremors. The number was provided for you above. Trouble swallowing: You were evaluated by Speech therapy who thought your swallow appeared normal. They did recommend you have evaluation by Gastroenterology, and after discussion today we decided together to set this up outside of the hospital. I have provided the phone number for Dr. Alcala's office, to schedule an appointment for difficulty with swallowing. Total Time Total Time Spent Total Time Spent (In Minutes): 40 min Coding Level of Care Code 37491 INP/OBS DISCH >30 MIN Diagnoses Aspiration into airway T17.908A Tremor R25.1 Anemia D64.9
== END 2022-11-23 11:27 | disposition home or self-care (01) | DRG 483 ==
LOC: ASU 11:58 → 3W 16:38

== ENCOUNTER 2025-04-04 16:49 | Observation (INO) ==
--- NOTE | 2025-04-04 17:44 | Emergency Department Note ---
Impression & Plan Fall, Complex laceration of face ED Provider Note CHIEF COMPLAINT: Fall HISTORY OF PRESENTING ILLNESS: The patient is a pleasant 79-year-old female who arrives to the emergency department for evaluation of injuries sustained from a mechanical fall. She reports earlier this afternoon she fell off of a porch, down 1-2 steps and onto concrete. She reports no precipitating events. She states she struck her left palm and left side of her forehead on the ground. She reports she sustained a wound to the left forehead, bruising to the left palm, and a small skin tear to the distal aspect of the right ring finger. She reports no anticoagulant use, no loss of consciousness, no head or neck pain. She reports intermittent pain to the right shoulder, however it has subsided. She states no chest pain, back pain, abdominal pain, nausea, or vomiting. She is well-appearing otherwise, slightly hypertensive, with otherwise stable vital signs. REVIEW OF SYSTEMS: See HPI for pertinent positives and pertinent negatives. ALLERGIES: See below MEDICATIONS: See below PAST MEDICAL HISTORY: See below PHYSICAL EXAM: VITALS: Vitals are noted on the nurse's note and reviewed by myself. Vital signs stable. GENERAL: 79-year-old female, in emotional distress, nondiaphoretic, well- developed well-nourished. SKIN: Circular wound present above the left eyebrow, underlying structures visible. No foreign body noted, bleeding controlled. HEAD: Normocephalic. EARS: External auditory canals clear, tympanic membranes pearly gonzales without erythema or effusion bilaterally. No hemotympanum. EYES: Pupils equal round and reactive to light and accommodation. Conjunctivae without injection, sclerae without icterus. Extraocular movements intact. No nystagmus. NOSE: Patent, turbinates without inflammation or discharge. No sinus tenderness. No septal hematoma. MOUTH: Mucous membranes moist. Uvula midline. Airway patent. Tongue does not deviate. NECK: Supple without nuchal rigidity. No lymphadenopathy. Cervical spine is nontender. No JVD. HEART: Regular rate and rhythm without murmurs gallops or rubs. LUNGS: Clear to auscultation bilaterally without wheezes, rales or rhonchi. No retractions or accessory muscle use. ABDOMEN: Positive bowel sounds x 4. Soft, nontender, without masses or organomegaly. Arrington sign negative. No guarding or rebound tenderness. MUSCULOSKELETAL: Tenderness to palpation left hand, ecchymosis noted to the palmar surface of the hand. It Communications Manager strength 5/5. Full ROM, left wrist. Radial pulse intact. All other extremities without injury, full sensation intact, and full strength. NEURO: Patient was alert and oriented to person place and time. No focal neurological deficits. DIFFERENTIAL DIAGNOSIS: Fracture, dislocation, contusion, intra-abdominal, pneumothorax, intrathoracic, intracranial, neurologic, compartment syndrome, rhabdomyolysis, as well as other pathologies. ED COURSE AND MEDICAL DECISION MAKING: HISTORY FROM INDEPENDENT HISTORIAN: at bedside serving as secondary historian. MEDICATIONS GIVEN: Tetanus booster, 5 mg oral oxycodone tablet, 0.5 mg sublingual Ativan, 3 g IV Unasyn, 4 mg IV morphine. MONITOR: Continuous ekg monitor: Order was placed for continuous ekg monitor. Patient was placed on the ekg monitor and continuous pulse ox. Patient was noted to be in normal sinus rhythm at an initial rate of 68 bpm per my interpretation. INTERPRETATION OF LABS: I interpreted the labs with full lab results as below in the lab section of this note. Pertinent lab results discussed in the MDM section below. INTERPRETATION OF IMAGING: Imaging studies were interpreted by myself and read by radiology as per the imaging section of this note. ESCALATION OF CARE CONSIDERED: Admission considered for medical management until patient is admitted to the OR in the morning for repair of complex wound on the forehead. CONSULTATIONS: [place] [facility] [place] the patient and repair the complex laceration on the patient's forehead. MDM SUMMARY: The patient is a pleasant, 79-year-old female who arrives to the emergency department for evaluation of the above-stated complaint. Saline lock was established, trauma workup was performed. Lab work shows no leukocytosis, no anemia. Coags within normal limits. BUN slightly elevated at 24, creat 1.23, however not significantly higher than patient's previous on 03/28. Troponin 5.0. Urinalysis 3+ leukocyte esterase, 21-50 WBCs, no bacteria, negative nitrites. CT imaging of the head, face, cervical spine, thoracic spine, lumbar spine, chest, and abdomen and pelvis was obtained. CT imaging per my interpretation shows no acute traumatic findings. X-ray imaging of the left wrist was obtained which shows no acute bony abnormality per my interpretation. I spoke with Dr. Quick regarding the patient's complex laceration to the forehead. It does appear the frontalis muscle is avulsed, and will require repair. Dr. Quick was agreeable to taking the patient to the OR, and performing the repair under anesthesia in the morning. He recommended admission to medicine for medical management, starting IV antibiotics, and making the patient n.p.o. after midnight. Patient was provided pain control as above, and IV Unasyn for antimicrobial coverage. The patient was admitted to the [facility], Dr. Wahl, will evaluate and admit the patient under his care. Please refer to his documentation for further patient workup and treatment. DIAGNOSIS: Fall, complex facial injury The patient's case was discussed with Dr. Vasquez, who agreed with my evaluation and treatment plan. The chart was completed utilizing [employer] Speech voice recognition software. Grammatical errors, random word insertions, pronoun errors, and incomplete sentences are an occasional consequence of this system due to software limitations, ambient noise, and hardware issues. Any formal questions or concerns about the content, text, or information contained within the body of this dictation should be directly addressed to the provider for clarification. Past Med/Surg History Problem List (Updated 04/05/25 @ 00:43 by NENA Culp) Complex laceration of face (Acute) Fall (Acute) Fall History of migraine (Acute) Headache (Acute) Dehydration (Acute) Vertigo (Acute) Sensorineural hearing loss (SNHL) of both ears Tinnitus, bilateral Compression fracture of T1 vertebra Ambulatory dysfunction (Acute) Anemia Tremor Essential tremor Periprosthetic fracture around internal prosthetic left shoulder joint, initial encounter Intractable low back pain Constipation (Acute) Low back strain (Acute) Lumbar stenosis with neurogenic claudication Chest pain Acute respiratory failure with hypoxia Chest pain (Acute) Hypoxia (Acute) Hyperlipidemia COVID-19 (Acute) Abdominal pain Intractable right lower quadrant abdominal pain (Acute) Acute right flank pain (Acute) Severe right inguinal pain Right lower quadrant abdominal pain Encounter for pre-operative examination Primary osteoarthritis, 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 History of back surgery Thoracic/lumbar S/P cholecystectomy Lap cholecystectomy (02/15/19): Grade 2 view, MAC 3.0, ETT 7.0 at [facility]. No issues noted per post-op anesthesia progress note. History of hysterectomy Total H/O colonoscopy H/O vein stripping H/O esophagogastroduodenoscopy Family History Other Heart disease No family history of adverse response to anesthesia Ovarian cancer Social History Smoking Status: Never smoker Second Hand Exposure: No; Do You Dip or Chew Tobacco: No; Hx Alcohol Use: No Hx Substance Use: No Preferred Language: Malay Communication Ability: Effective Visual Impairment: No Limitations Auto Body Mechanic Required: No Beliefs That Will Affect Care: None marital status: Current Living Situation: Spouse Feels Safe at Home: Yes Assistive Devices: Cane and Walker Allergies Allergies Allergy/AdvReac Type Severity Reaction Status Date / Time phenazopyridine Allergy Intermediate Pruritis Verified 04/04/25 19:30 Sulfa (Sulfonamide Allergy Intermediate Hives Verified 04/04/25 19:30 Antibiotics) omeprazole [From Prilosec] AdvReac Severe Seizure Verified 04/04/25 19:30 domperidone AdvReac Intermediate Balance Verified 04/04/25 19:30 issues metoclopramide AdvReac Intermediate Balance Verified 04/04/25 19:30 issues tramadol AdvReac Intermediate Diarrhea Verified 04/04/25 19:30 Home Meds Home Medications Medication Instructions Recorded Confirmed citalopram 20 mg tablet 20 mg PO QAM 05/31/18 04/04/25 lamotrigine 200 mg tablet 400 mg PO BID 05/31/18 04/04/25 rosuvastatin 5 mg tablet 5 mg PO QAM 08/16/20 04/04/25 ascorbic acid (vitamin C) 500 mg 500 mg PO QAM 02/05/23 04/04/25 tablet (Vitamin C) aspirin 81 mg chewable tablet 81 mg PO QAM 03/28/25 04/04/25 (Aspirin Childrens) buspirone 10 mg tablet 10 mg PO BID 03/28/25 04/04/25 cholecalciferol (vitamin D3) 25 25 mcg PO QAM 03/28/25 04/04/25 mcg (1,000 unit) tablet (Vitamin D3) clonazepam 0.5 mg tablet 0.5 mg PO BID PRN Anxiety 03/28/25 04/04/25 meclizine 25 mg tablet 25 mg PO TID PRN Dizziness 03/28/25 04/04/25 pantoprazole 20 mg tablet,delayed 40 mg PO QAM 03/28/25 04/04/25 release propranolol 10 mg tablet 10 mg PO TID 03/28/25 04/04/25 vitamin B complex 1 cap PO QAM 03/28/25 04/04/25 Results & Data (ED) Vital Signs Vital Signs - 24 hr 04/04/25 16:59 04/04/25 17:08 04/04/25 17:30 Temperature 36.8 C Temperature Source Oral Pulse Rate 68 69 Pulse Rate [Apical] 80 Pulse Rhythm [Apical] Pulse Strength [Apical] Respiratory Rate 22 20 Respiratory Effort / Characteristics Non-Labored Spontaneous Non-Labored Respiratory Depth Normal Normal Respiratory Pattern Regular Blood Pressure 162/108 H Blood Pressure [Right Arm] 162/108 H Blood Pressure Mean 126 Blood Pressure Mean [Right Arm] 126 Blood Pressure Position [Right Arm] Pulse Oximetry 98 95 Oxygen Delivery Method Room Air Room Air Sepsis Recent Fever Within 48 Hours No Sepsis New/Unexplained Change in Mental Status N/A Sepsis Action Taken by Nursing No Action Required 04/04/25 17:30 04/04/25 17:46 04/04/25 18:31 Temperature Temperature Source Pulse Rate Pulse Rate [Apical] 63 76 Pulse Rhythm [Apical] Pulse Strength [Apical] Respiratory Rate 20 20 Respiratory Effort / Characteristics Non-Labored Non-Labored Respiratory Depth Normal Normal Respiratory Pattern Blood Pressure Blood Pressure [Right Arm] 173/96 H Blood Pressure Mean Blood Pressure Mean [Right Arm] 121 Blood Pressure Position [Right Arm] Pulse Oximetry 95 98 97 Oxygen Delivery Method Room Air Room Air Room Air Sepsis Recent Fever Within 48 Hours Sepsis New/Unexplained Change in Mental Status Sepsis Action Taken by Nursing 04/04/25 18:31 04/04/25 19:00 04/04/25 20:00 Temperature Temperature Source Pulse Rate Pulse Rate [Apical] 92 H 83 68 Pulse Rhythm [Apical] Regular Regular Pulse Strength [Apical] Normal Normal Respiratory Rate 20 18 18 Respiratory Effort / Characteristics Non-Labored Non-Labored Spontaneous Non-Labored Spontaneous Respiratory Depth Normal Normal Normal Respiratory Pattern Regular Regular Blood Pressure Blood Pressure [Right Arm] 173/96 H 156/86 H 145/88 H Blood Pressure Mean Blood Pressure Mean [Right Arm] 121 109 107 Blood Pressure Position [Right Arm] Semi-fowlers Semi-fowlers Pulse Oximetry 97 97 98 Oxygen Delivery Method Room Air Room Air Room Air Sepsis Recent Fever Within 48 Hours Sepsis New/Unexplained Change in Mental Status Sepsis Action Taken by Nursing 04/04/25 21:00 04/04/25 21:05 04/04/25 22:00 Temperature Temperature Source Pulse Rate 63 Pulse Rate [Apical] 69 72 Pulse Rhythm [Apical] Regular Regular Pulse Strength [Apical] Normal Normal Respiratory Rate 18 18 Respiratory Effort / Characteristics Non-Labored Spontaneous Non-Labored Spontaneous Respiratory Depth Normal Normal Respiratory Pattern Regular Regular Blood Pressure Blood Pressure [Right Arm] 134/78 126/75 Blood Pressure Mean Blood Pressure Mean [Right Arm] 96 92 Blood Pressure Position [Right Arm] Semi-fowlers Semi-fowlers Pulse Oximetry 97 97 Oxygen Delivery Method Room Air Room Air Sepsis Recent Fever Within 48 Hours Sepsis New/Unexplained Change in Mental Status Sepsis Action Taken by Nursing 04/04/25 23:00 04/05/25 00:00 04/05/25 00:00 Temperature Temperature Source Pulse Rate Pulse Rate [Apical] 64 58 L 63 Pulse Rhythm [Apical] Regular Regular Pulse Strength [Apical] Normal Normal Respiratory Rate 20 17 17 Respiratory Effort / Characteristics Non-Labored Spontaneous Non-Labored Spontaneous Non-Labored Spontaneous Respiratory Depth Normal Normal Normal Respiratory Pattern Regular Regular Regular Blood Pressure Blood Pressure [Right Arm] 111/68 117/72 117/72 Blood Pressure Mean Blood Pressure Mean [Right Arm] 82 87 87 Blood Pressure Position [Right Arm] Lying Lying Lying Pulse Oximetry 93 93 93 Oxygen Delivery Method Room Air Room Air Room Air Sepsis Recent Fever Within 48 Hours Sepsis New/Unexplained Change in Mental Status Sepsis Action Taken by [facility] Medications Current Medication List: was personally reviewed by me Laboratory Data Attestation: I reviewed the patient's lab results. 04/04/25 17:05 04/04/25 17:05 Lab Results 04/04/25 04/04/25 Range/Units 17:05 19:33 WBC 6.14 (4.8-10.8) K/ul RBC 4.05 L (4.20-5.40) M/uL Hgb 13.2 (12.0-16.0) g/dl Hct 39.4 (37.0-47.0) % MCV 97.3 (80.0-100.0) fL MCH 32.6 (25.0-34.0) pg MCHC 33.5 (32.0-36.0) g/dL RDW Std Deviation 48.0 H (36.4-46.3) fL RDW Coeff of Bill 13.4 (11.5-14.5) % Plt Count 221 (130-400) K/uL MPV 9.5 (9.4-12.4) fL Immature Gran % (Auto) 0.2 % Neut % (Auto) 62.5 % Lymph % (Auto) 30.1 % [place] % (Auto) 7.2 % Eos % (Auto) 0.0 % Baso % (Auto) 0.0 % Neut # (Auto) 3.84 (1.40-6.50) K/uL Lymph # (Auto) 1.85 (1.20-3.40) K/uL [place] # (Auto) 0.44 (0.11-0.59) K/uL Eos # (Auto) 0.00 (0.00-0.50) K/uL Baso # (Auto) 0.00 (0.00-0.20) K/uL Immature Gran # (Auto) 0.01 (0.01-0.20) K/uL PT 10.1 (9.0-12.0) Seconds INR 0.9 (0.9-1.1) APTT 24 (21-31) Seconds PTT Ratio 0.9 Sodium 136 (136-145) mmol/L Potassium 4.4 (3.5-5.1) mmol/L Chloride 103 (98-107) mmol/L Carbon Dioxide 27 (21-32) mmol/L Anion Gap 6 (3-11) BUN 24 H (6-23) mg/dl Creatinine 1.23 H (0.6-1.2) mg/dl Est Cr Clr Drug Dosing 40.4 ml/min eGFR 44.98 BUN/Creatinine Ratio 19.5 (10-20) Glucose 114 H (70-99(Fasting)) mg/dl Calcium 10.0 (8.6-10.3) mg/dl Total Bilirubin 0.5 (0.2-1.0) mg/dl AST 17 (13-39) U/L ALT 12 (7-52) U/L Alkaline Phosphatase 33 L (34-104) U/L Troponin I High Sens 5.0 (0-14) pg/ml Total Protein 7.4 (6.0-8.3) gm/dl Albumin 4.4 (3.4-5.0) gm/dl Globulin 3.0 (2.5-4.0) gm/dl Albumin/Globulin Ratio 1.5 (0.9-2) Urine Color Yellow Urine Appearance Clear (Clear) Urine pH 7.5 (4.5-7.5) Ur Specific [place] 1.032 H (1.000-1.030) Urine Protein Negative (Negative) Urine Glucose (UA) Negative (Negative) Urine Ketones Negative (Negative) Urine Blood Negative (Negative) Urine Nitrite Negative (Negative) Urine Bilirubin Negative (Negative) Urine Urobilinogen Negative (Negative) Ur Leukocyte Esterase 3+ H (Negative) Urine WBC (Auto) 21-50 H (0-5) /hpf Urine RBC (Auto) 0-2 (0-2) /hpf U Hyaline Cast (Auto) 0-2 (0-2) /lpf U Epithel Cells (Auto) 0-2 (0-2) /hpf Urine Bacteria (Auto) None Seen (None Seen) Urine Comment Administered Medications Discontinued Medications Diphtheria/Pertussis/Tetanus Vacc (Diphther/Tetan/Pertus Vaccine (Tdap, Adol/Adult) 0.5ml) 0.5 ml IM .ONCE ONE Stop: 04/04/25 17:43 Last Admin: 04/04/25 18:04 Dose: 0.5 ml Documented By: ES Ampicillin Sodium/Sulbactam Sodium (Unasyn) 3,000 mg in 100 mls @ 200 mls/hr IV NOW STA Stop: 04/04/25 20:40 Last Infusion: 04/04/25 21:49 Dose: Infused Documented By: Admin: 04/04/25 20:56 Dose: 200 mls/hr Documented By: JEAN-CLAUDE Ioversol (Optiray 320 100ml) 90 ml IV ONCE ONE Stop: 04/04/25 19:00 Last Admin: 04/04/25 18:59 Dose: 90 ml Documented By: HONEY Lorazepam (Lorazepam 1 Mg Tab) 0.5 mg SL NOW STA Stop: 04/04/25 19:27 Last Admin: 04/04/25 19:40 Dose: 0.5 mg Documented By: JEAN-CLAUDE Morphine Sulfate (Morphine Sulfate 4 Mg/Ml 1 Ml Carp\Vial) 4 mg IV NOW STA Stop: 04/04/25 20:46 Last Admin: 04/04/25 20:57 Dose: 4 mg Documented By: JEAN-CLAUDE Ondansetron HCl (Ondansetron Inj 2 Mg/Ml 2 Ml Vial) 4 mg IV NOW STA Stop: 04/04/25 23:58 Last Admin: 04/05/25 00:05 Dose: 4 mg Documented By: JOY Oxycodone HCl (Oxycodone Hcl Ir 5 Mg Tab (Immediate Release)) 5 mg PO NOW STA Stop: 04/04/25 17:43 Last Admin: 04/04/25 18:04 Dose: 5 mg Documented By: MYNOR Imaging Data Attestation: I personally reviewed and interpreted this imaging study as follows: Radiologist's Impression: Chest X-Ray 04/04/25 17:42 Chest radiograph, one view History: Trauma Comparison: March 28, 2025 Findings: Single AP view of the chest performed. No focal consolidation or pleural effusion. No pneumothorax. The cardiomediastinal silhouette is within normal limits. Normal pulmonary vascularity. No evidence for lymphadenopathy. No visualized bony or soft tissue abnormality. Left shoulder arthroplasty in place, with cerclage wires. Impression: Normal chest radiograph Electronically signed by Eric Hyman 04-04-2025 6:[address] 04/04/25 17:42 CT LUMBAR SPINE WITHOUT CONTRAST: HISTORY: TRAUMA TECHNIQUE: Noncontrast CT examination of the lumbar spine is performed. Coronal and sagittal reformats were created. COMPARISON: CT lumbar spine June 05, 2023 FINDINGS: LUMBAR SPINE: There is no significant vertebral body height loss. No acute traumatic fracture identified. Redemonstrated postoperative changes lumbar spine fusion and decompressive laminectomy without significant change. There is no significant spondylolisthesis. Usual lumbar lordosis is preserved. Multilevel degenerative changes characterized by disc space loss, broad based disc bulge/herniations with endplate changes of the vertebral bodies with small marginal osteophytes as well as bilateral facet hypertrophy and thickening of the ligamentum flavum resulting in crowding of the subarticular recesses and narrowing of neural foramina worst at L4-S1. IMPRESSION: No acute traumatic fracture of the lumbar spine. Multilevel degenerative changes as above Electronically signed by Rick Crook 04-04-2025 7:58 PM Abdomen/Pelvis CT 04/04/25 17:43 CT CHEST ABDOMEN and PELVIS WITH CONTRAST INDICATION: TRAUMA TECHNIQUE: CT of chest, abdomen and pelvis was obtained with intravenous contrast. IV CONTRAST: 100 mL of OMNIPAQUE 300 Enteric contrast: Not Given COMPARISON: Thoracic CT January 12, 2023 FINDINGS: LOWER NECK: Normal thyroid. LYMPH NODES: A few small nonenlarged lymph nodes in the mediastinum. No lymphadenopathy by size criteria. CARDIOVASCULAR: Cardiac size is normal. Coronary artery calcifications are noted. No aortic aneurysm. LUNGS: The trachea and central bronchi are widely patent. No focal confluent infiltrates are seen. There are no pulmonary nodules. Unchanged subcentimeter pulmonary nodules PLEURA: There are no pleural effusions. There is no pneumothorax. LIVER: No focal lesion identified. GALLBLADDER/BILIARY: Surgically absent gallbladder. No abnormal biliary dilatation. SPLEEN: Unremarkable. PANCREAS: Unremarkable. ADRENALS: Unremarkable. KIDNEYS: Atrophic kidneys. Cortical cysts. No stones or hydronephrosis identified. PERITONEUM/RETROPERITONEUM. No lymphadenopathy by size criteria. No aortic aneurysm. Mild atherosclerosis GASTROINTESTINAL: No obstruction. REPRODUCTIVE: Status post hysterectomy BONES: No acute findings. IMPRESSION: No evidence of acute trauma to the thorax, the abdomen or the pelvis Electronically signed by Rick Crook 04-04-2025 8:[address] 04/04/25 17:43 CT CERVICAL SPINE WITHOUT CONTRAST: HISTORY: Trauma TECHNIQUE: Noncontrast CT examination of the cervical thoracic lumbar spine is performed. Coronal and sagittal reformats were created. COMPARISON: Cervical spine CT June 05, 2023 FINDINGS: CERVICAL SPINE: There is no significant vertebral body height loss. No acute traumatic fracture identified. There is no significant spondylolisthesis. Multilevel degenerative changes characterized by disc osteophyte complex, bilateral facet and uncovertebral hypertrophy resulting and neural foraminal narrowing at multiple levels, worst at mid to lower spine. Visualized soft tissues of neck are unremarkable. Visualized lung apex is clear. IMPRESSION: No acute traumatic fracture of the cervical spine. Multilevel degenerative changes as above Electronically signed by Rick Crook 04-04-2025 7:[address] 04/04/25 17:43 CT CHEST ABDOMEN and PELVIS WITH CONTRAST INDICATION: TRAUMA TECHNIQUE: CT of chest, abdomen and pelvis was obtained with intravenous contrast. IV CONTRAST: 100 mL of OMNIPAQUE 300 Enteric contrast: Not Given COMPARISON: Thoracic CT January 12, 2023 FINDINGS: LOWER NECK: Normal thyroid. LYMPH NODES: A few small nonenlarged lymph nodes in the mediastinum. No lymphadenopathy by size criteria. CARDIOVASCULAR: Cardiac size is normal. Coronary artery calcifications are noted. No aortic aneurysm. LUNGS: The trachea and central bronchi are widely patent. No focal confluent infiltrates are seen. There are no pulmonary nodules. Unchanged subcentimeter pulmonary nodules PLEURA: There are no pleural effusions. There is no pneumothorax. LIVER: No focal lesion identified. GALLBLADDER/BILIARY: Surgically absent gallbladder. No abnormal biliary dilatation. SPLEEN: Unremarkable. PANCREAS: Unremarkable. ADRENALS: Unremarkable. KIDNEYS: Atrophic kidneys. Cortical cysts. No stones or hydronephrosis identified. PERITONEUM/RETROPERITONEUM. No lymphadenopathy by size criteria. No aortic aneurysm. Mild atherosclerosis GASTROINTESTINAL: No obstruction. REPRODUCTIVE: Status post hysterectomy BONES: No acute findings. IMPRESSION: No evidence of acute trauma to the thorax, the abdomen or the pelvis Electronically signed by Rick Crook 04-04-2025 8:[address] 04/04/25 17:43 CT MAXILLOFACIAL WITHOUT CONTRAST: HISTORY: Trauma TECHNIQUE: Noncontrast CT examination of the face is performed. Coronal and sagittal reformats were created. COMPARISON: None. FINDINGS: No acute traumatic fracture is identified. Mild mucosal thickening of the paranasal sinuses. The mastoids are aerated. There is a laceration in the left frontal scalp. IMPRESSION: No acute traumatic facial fracture is identified. Left frontal scalp laceration. Electronically signed by Rick Crook 04-04-2025 8:[address] 04/04/25 17:43 Technique: Axial computed tomography images were obtained of the brain without intravenous contrast. Findings: There is diffuse cerebral atrophy, within expected limits for the patient's age. Areas of decreased attenuation are seen within the periventricular white matter, likely representing chronic small vessel ischemic disease. There is no definite sign of acute or old infarction. No intracranial hemorrhage is evident. No definite mass lesion is seen on this noncontrast examination. There is no midline shift or other form of herniation. No hydrocephalus is seen. No fracture is identified. The orbits and the visualized paranasal sinuses appear unremarkable. The mastoid air cells appear clear. Impression: 1. Cerebral atrophy and chronic small vessel ischemic disease 2. Otherwise unremarkable noncontrast CT of the brain Electronically signed by Rick Anderson 04-04-2025 7:[address] 04/04/25 17:43 CT THORACIC SPINE WITHOUT CONTRAST: HISTORY: TRAUMA TECHNIQUE: Noncontrast CT examination of the thoracic spine is performed. Coronal and sagittal reformats were created. COMPARISON: Cervical spine CT 2022 FINDINGS: THORACIC SPINE: No significant vertebral body height loss. No significant change in the mild compression deformity along the superior endplate of T1 vertebral body without significant retropulsion compared to cervical spine CT examination from 2022. No acute traumatic fracture identified. There is no significant spondylolisthesis. Usual thoracic kyphosis is preserved. Multilevel degenerative changes characterized by disc space loss with endplate changes of the vertebral bodies with small marginal osteophytes. Transferred back IMPRESSION: No acute traumatic fracture of the thoracic spine. Multilevel degenerative changes as above Electronically signed by Rick Crook 04-04-2025 7:58 PM Wrist X-Ray 04/04/25 18:11 Study: Left wrist 5 views History: Pain Comparison: None Findings: There is no acute fracture or dislocation. Alignment is anatomic. Joint spaces are well maintained. There is no joint effusion or significant soft tissue swelling. Bone mineralization is decreased. Impression: No acute bony abnormality Electronically signed by Eric Hyman 04-04-2025 6:41 PM Head Trauma GCS Score: 15 Discharge Plan Visit Data Chief Complaint: Fall ED Provider: Samara Vasquez ED Midlevel Provider: Briseida Hager Discharge Problem: Fall, Complex laceration of face Condition: Good Forms Stand Alone Forms: [employer] Prescriptions Prescriptions: No Action lamotrigine 200 mg tablet 400 mg PO BID citalopram 20 mg Tablet 20 mg PO QAM rosuvastatin 5 mg tablet 5 mg PO QAM ascorbic acid (vitamin C) [Vitamin C] 500 mg Tablet 500 mg PO QAM clonazepam 0.5 mg tablet 0.5 mg PO BID PRN (Reason: Anxiety) propranolol 10 mg tablet 10 mg PO TID Rx Instructions: take 1 tablet in the morning,at noon and before bedtime meclizine 25 mg tablet 25 mg PO TID PRN (Reason: Dizziness) buspirone 10 mg tablet 10 mg PO BID pantoprazole 20 mg tablet,delayed release (DR/EC) 40 mg PO QAM vitamin B complex Capsule 1 cap PO QAM aspirin [Aspirin Childrens] 81 mg Tablet,Chewable 81 mg PO QAM cholecalciferol (vitamin D3) [Vitamin D3] 25 mcg (1,000 unit) Tablet 25 mcg PO QAM Referrals Referrals: Adalberto Huynh MD [Primary Care Provider] -
[2025-04-04 17:56] LABS: Hematocrit (blood only) 39.4 % (37.0-47.0); Hemoglobin 13.2 g/dl (12.0-16.0); Immature Granulocytes # (auto) 0.01 K/uL (0.01-0.20); Immature Granulocytes % (auto) 0.2 %; Mean Corpuscular Hemoglobin 32.6 pg (25.0-34.0); Mean Corpuscular Volume 97.3 fL (80.0-100.0); Platelet Count 221 K/uL (130-400); RDW Standard Deviation 48.0 fL (36.4-46.3); Red Blood Count 4.05 M/uL (4.20-5.40); White Blood Count 6.14 K/ul (4.8-10.8)
[2025-04-04] MEDS: DIPHTHER/TETAN/PERTUS Vaccine (Tdap, Adol/Adult) 0.5mL IM ONE (18:04)
--- NOTE | 2025-04-04 18:09 | XRay Report ---
Chest radiograph, one view History: Trauma Comparison: March 28, 2025 Findings: Single AP view of the chest performed. No focal consolidation or pleural effusion. No pneumothorax. The cardiomediastinal silhouette is within normal limits. Normal pulmonary vascularity. No evidence for lymphadenopathy. No visualized bony or soft tissue abnormality. Left shoulder arthroplasty in place, with cerclage wires. Impression: Normal chest radiograph Electronically signed by Eric Hyman 04-04-2025 6:09 PM
[2025-04-04 18:13] LABS: Alanine Aminotransferase 12.0 U/L (7-52); Albumin Globulin Ratio 1.5 (0.9-2); Alkaline Phosphatase 33.0 U/L (34-104); Anion Gap 6.0 (3-11); Bilirubin,Total 0.5 mg/dl (0.2-1.0); Blood Urea Nitrogen 24.0 mg/dl (6-23); Calcium 10.0 mg/dl (8.6-10.3); Carbon Dioxide 27.0 mmol/L (21-32); Chloride 103.0 mmol/L (98-107); Creatinine Clr Calc Pharmacy 40.4 ml/min; Globulin 3.0 gm/dl (2.5-4.0); Glucose 114.0 mg/dl (70-99(Fasting)); Potassium 4.4 mmol/L (3.5-5.1); Sodium 136.0 mmol/L (136-145); Total Protein 7.4 gm/dl (6.0-8.3)
[2025-04-04 18:28] LABS: INR 0.9 (0.9-1.1); Partial Thromboplastin Time 24 Seconds (21-31); Prothrombin Time 10.1 Seconds (9.0-12.0)
--- NOTE | 2025-04-04 18:42 | XRay Report ---
Study: Left wrist 5 views History: Pain Comparison: None Findings: There is no acute fracture or dislocation. Alignment is anatomic. Joint spaces are well maintained. There is no joint effusion or significant soft tissue swelling. Bone mineralization is decreased. Impression: No acute bony abnormality Electronically signed by Eric Hyman 04-04-2025 6:41 PM
[2025-04-04] MEDS: OPTIRAY 320 100ml IV ONE (18:59)
--- NOTE | 2025-04-04 19:25 | CT Scan Report ---
Technique: Axial computed tomography images were obtained of the brain without intravenous contrast. Findings: There is diffuse cerebral atrophy, within expected limits for the patient's age. Areas of decreased attenuation are seen within the periventricular white matter, likely representing chronic small vessel ischemic disease. There is no definite sign of acute or old infarction. No intracranial hemorrhage is evident. No definite mass lesion is seen on this noncontrast examination. There is no midline shift or other form of herniation. No hydrocephalus is seen. No fracture is identified. The orbits and the visualized paranasal sinuses appear unremarkable. The mastoid air cells appear clear. Impression: 1. Cerebral atrophy and chronic small vessel ischemic disease 2. Otherwise unremarkable noncontrast CT of the brain Electronically signed by Rick Anderson 04-04-2025 7:24 PM
[2025-04-04] MEDS: LORazepam 1 MG TAB SL STA (19:40)
--- NOTE | 2025-04-04 19:48 | CT Scan Report ---
CT CERVICAL SPINE WITHOUT CONTRAST: HISTORY: Trauma TECHNIQUE: Noncontrast CT examination of the cervical thoracic lumbar spine is performed. Coronal and sagittal reformats were created. COMPARISON: Cervical spine CT June 05, 2023 FINDINGS: CERVICAL SPINE: There is no significant vertebral body height loss. No acute traumatic fracture identified. There is no significant spondylolisthesis. Multilevel degenerative changes characterized by disc osteophyte complex, bilateral facet and uncovertebral hypertrophy resulting and neural foraminal narrowing at multiple levels, worst at mid to lower spine. Visualized soft tissues of neck are unremarkable. Visualized lung apex is clear. IMPRESSION: No acute traumatic fracture of the cervical spine. Multilevel degenerative changes as above Electronically signed by Rick Crook 04-04-2025 7:47 PM
--- NOTE | 2025-04-04 19:58 | CT Scan Report ---
CT THORACIC SPINE WITHOUT CONTRAST: HISTORY: TRAUMA TECHNIQUE: Noncontrast CT examination of the thoracic spine is performed. Coronal and sagittal reformats were created. COMPARISON: Cervical spine CT 2022 FINDINGS: THORACIC SPINE: No significant vertebral body height loss. No significant change in the mild compression deformity along the superior endplate of T1 vertebral body without significant retropulsion compared to cervical spine CT examination from 2022. No acute traumatic fracture identified. There is no significant spondylolisthesis. Usual thoracic kyphosis is preserved. Multilevel degenerative changes characterized by disc space loss with endplate changes of the vertebral bodies with small marginal osteophytes. Transferred back IMPRESSION: No acute traumatic fracture of the thoracic spine. Multilevel degenerative changes as above Electronically signed by Rick Crook 04-04-2025 7:58 PM
--- NOTE | 2025-04-04 20:00 | CT Scan Report ---
CT LUMBAR SPINE WITHOUT CONTRAST: HISTORY: TRAUMA TECHNIQUE: Noncontrast CT examination of the lumbar spine is performed. Coronal and sagittal reformats were created. COMPARISON: CT lumbar spine June 05, 2023 FINDINGS: LUMBAR SPINE: There is no significant vertebral body height loss. No acute traumatic fracture identified. Redemonstrated postoperative changes lumbar spine fusion and decompressive laminectomy without significant change. There is no significant spondylolisthesis. Usual lumbar lordosis is preserved. Multilevel degenerative changes characterized by disc space loss, broad based disc bulge/herniations with endplate changes of the vertebral bodies with small marginal osteophytes as well as bilateral facet hypertrophy and thickening of the ligamentum flavum resulting in crowding of the subarticular recesses and narrowing of neural foramina worst at L4-S1. IMPRESSION: No acute traumatic fracture of the lumbar spine. Multilevel degenerative changes as above Electronically signed by Rick Crook 04-04-2025 7:58 PM
--- NOTE | 2025-04-04 20:14 | CT Scan Report ---
CT CHEST ABDOMEN and PELVIS WITH CONTRAST INDICATION: TRAUMA TECHNIQUE: CT of chest, abdomen and pelvis was obtained with intravenous contrast. IV CONTRAST: 100 mL of OMNIPAQUE 300 Enteric contrast: Not Given COMPARISON: Thoracic CT January 12, 2023 FINDINGS: LOWER NECK: Normal thyroid. LYMPH NODES: A few small nonenlarged lymph nodes in the mediastinum. No lymphadenopathy by size criteria. CARDIOVASCULAR: Cardiac size is normal. Coronary artery calcifications are noted. No aortic aneurysm. LUNGS: The trachea and central bronchi are widely patent. No focal confluent infiltrates are seen. There are no pulmonary nodules. Unchanged subcentimeter pulmonary nodules PLEURA: There are no pleural effusions. There is no pneumothorax. LIVER: No focal lesion identified. GALLBLADDER/BILIARY: Surgically absent gallbladder. No abnormal biliary dilatation. SPLEEN: Unremarkable. PANCREAS: Unremarkable. ADRENALS: Unremarkable. KIDNEYS: Atrophic kidneys. Cortical cysts. No stones or hydronephrosis identified. PERITONEUM/RETROPERITONEUM. No lymphadenopathy by size criteria. No aortic aneurysm. Mild atherosclerosis GASTROINTESTINAL: No obstruction. REPRODUCTIVE: Status post hysterectomy BONES: No acute findings. IMPRESSION: No evidence of acute trauma to the thorax, the abdomen or the pelvis Electronically signed by Rick Crook 04-04-2025 8:14 PM
[2025-04-04 20:15] LABS: Appearance Urine Clear (Clear); Bacteria Urine Automated None Seen (None Seen); Cast Urine Automated 0-2 /lpf (0-2); Epithelial Cell Urine Auto 0-2 /hpf (0-2); Glucose Urine UA Negative (Negative); RBC Urine Automated 0-2 /hpf (0-2); WBC Urine Automated 21-50 /hpf (0-5)
--- NOTE | 2025-04-04 20:16 | CT Scan Report ---
CT MAXILLOFACIAL WITHOUT CONTRAST: HISTORY: Trauma TECHNIQUE: Noncontrast CT examination of the face is performed. Coronal and sagittal reformats were created. COMPARISON: None. FINDINGS: No acute traumatic fracture is identified. Mild mucosal thickening of the paranasal sinuses. The mastoids are aerated. There is a laceration in the left frontal scalp. IMPRESSION: No acute traumatic facial fracture is identified. Left frontal scalp laceration. Electronically signed by Rick Crook 04-04-2025 8:14 PM
[2025-04-04] MEDS: AMPICILLIN/SULBACTAM SOD 3,000 MG/100 ML BAG IV STA (20:56)
[2025-04-04] MEDS: MoRPHine SULFATE 4 MG/ML 1 ML CARP\\VIAL IV STA (20:57)
[2025-04-05] MEDS: ONDANSETRON INJ 2 MG/ML 2 ML VIAL IV STA (00:05)
--- NOTE | 2025-04-05 00:17 | History & Physical Report ---
Date of Service April 04, 2025 Assessment & Plan (1) Fall: Plan: 79-year-old female with past medical history significant for hyperlipidemia, gastroparesis, Cerda's esophagus, history of diarrhea, CKD stage III, osteoporosis, epilepsy, chronic migraine, essential tremor, history of pulmonary embolism, depression, history of Helicobacter infection, GERD anxiety disorder, history of frequent falls, presents with fall and found to deep laceration to the left frontal part of the head. Patient is having on and off dizziness last 1 week. Patient gets these dizzy spells on and off. Today she was feeling fine. She was at her friend's house. came to pick her up. She was trying to come out to the porch when she was getting down the the steps she lost balance and fell and hit her head. No loss of consciousness. With help she was able to get up. Currently headache improved.. Has some nausea. Says has some abdominal discomfort in epigastric region. Denies any chest pain currently. She gets on and off chest pains. No shortness of breath currently. No fevers. No cough. No runny nose or sore throat. No earaches. Appetite is okay. Eating and drinking okay. No diarrhea or constipation. Micturating okay. Hemodynamics are okay. Fall Deep laceration of the left forehead ER spoke with facial surgery and plan for repair in a.m. N.p.o. IV fluids IV Unasyn Pain control Monitor med/daily CT head, no acute findings Face CT. Left frontal scalp laceration seen. Chest CT, cervical spine CT, abdomen pelvis CT, lumbar spine CT no acute findings Chest x-ray no acute findings Follow repeat labs Left wrist swelling On splint X-ray no fracture seen Possible UTI Will follow cultures On Unasyn Possible near syncope Chronic on and off dizziness On meclizine as needed Fluids Monitor orthostatics Follow echo Med/telemetry CKD stage III Creatinine 1.2 around baseline Will follow labs Hyperlipidemia On statin Essential tremor On propranolol Cerda's esophagus Protonix Epilepsy On Lamictal Depression Generalized anxiety disorder On buspirone and citalopram and Klonopin as needed DVT prophylaxis SCDs for now Disposition Med/telemetry Full code. History of Present Illness Chief Complaint: Status post fall. Laceration of the left frontal head Primary Care Provider: Adalberto Huynh MD 79-year-old female with past medical history significant for hyperlipidemia, gastroparesis, Cerda's esophagus, history of diarrhea, CKD stage III, osteoporosis, epilepsy, chronic migraine, essential tremor, history of pulmonary embolism, depression, history of Helicobacter infection, GERD anxiety disorder, history of frequent falls, presents with fall and found to deep laceration to the left frontal part of the head. Patient is having on and off dizziness last 1 week. Patient gets these dizzy spells on and off. Today she was feeling fine. She was at her friend's house. came to pick her up. She was trying to come out of the porch, when she was getting down the the steps she lost balance and fell and hit her head. No loss of consciousness. With help she was able to get up. Currently headache improved.. Has some nausea. Says has some abdominal discomfort in epigastric region. Denies any chest pain currently. She gets on and off chest pains. No shortness of breath currently. No fevers. No cough. No runny nose or sore throat. No earaches. Appetite is okay. Eating and drinking okay. No diarrhea or constipation. Micturating okay. Hemodynamics are okay. Past medical history. As mentioned above Past surgical history. Breast lesion excision. Cholecystectomy. Colonoscopy. Cystoscopy. EGD. EGD with biopsy. Excision of subcutaneous cyst. Fusion of the upper back. Cataracts. Sigmoidoscopy. Total hysterectomy. Social history. . No smoking. No alcohol use. No drug use. Family history. Brother had cancer. Mother had lung cancer. Sister had breast cancer. Sister had liver cancer Sister had lung cancer.. Brother had hepatitis B. Sister had hypertrophic cardiomyopathy. Father had alcoholism and cirrhosis. Allergies Allergy/AdvReac Type Severity Reaction Status Date / Time phenazopyridine Allergy Intermediate Pruritis Verified 04/04/25 19:30 Sulfa (Sulfonamide Allergy Intermediate Hives Verified 04/04/25 19:30 Antibiotics) omeprazole [From Prilosec] AdvReac Severe Seizure Verified 04/04/25 19:30 domperidone AdvReac Intermediate Balance Verified 04/04/25 19:30 issues metoclopramide AdvReac Intermediate Balance Verified 04/04/25 19:30 issues tramadol AdvReac Intermediate Diarrhea Verified 04/04/25 19:30 Home Medications Medication Instructions Recorded Confirmed Type citalopram 20 mg tablet 20 mg PO QAM 05/31/18 04/04/25 History lamotrigine 200 mg tablet 400 mg PO BID 05/31/18 04/04/25 History rosuvastatin 5 mg tablet 5 mg PO QAM 08/16/20 04/04/25 History ascorbic acid (vitamin C) 500 mg 500 mg PO QAM 02/05/23 04/04/25 History tablet (Vitamin C) aspirin 81 mg chewable tablet 81 mg PO QAM 03/28/25 04/04/25 History (Aspirin Childrens) buspirone 10 mg tablet 10 mg PO BID 03/28/25 04/04/25 History cholecalciferol (vitamin D3) 25 25 mcg PO QAM 03/28/25 04/04/25 History mcg (1,000 unit) tablet (Vitamin D3) clonazepam 0.5 mg tablet 0.5 mg PO BID PRN Anxiety 03/28/25 04/04/25 History meclizine 25 mg tablet 25 mg PO TID PRN Dizziness 03/28/25 04/04/25 History pantoprazole 20 mg tablet,delayed 40 mg PO QAM 03/28/25 04/04/25 History release propranolol 10 mg tablet 10 mg PO TID 03/28/25 04/04/25 History vitamin B complex 1 cap PO QAM 03/28/25 04/04/25 History Past Med/Surg History Problem List (Updated 04/05/25 @ 00:43 by NENA Culp) Complex laceration of face (Acute) Fall (Acute) Fall History of migraine (Acute) Headache (Acute) Dehydration (Acute) Vertigo (Acute) Sensorineural hearing loss (SNHL) of both ears Tinnitus, bilateral Compression fracture of T1 vertebra Ambulatory dysfunction (Acute) Anemia Tremor Essential tremor Periprosthetic fracture around internal prosthetic left shoulder joint, initial encounter Intractable low back pain Constipation (Acute) Low back strain (Acute) Lumbar stenosis with neurogenic claudication Chest pain Acute respiratory failure with hypoxia Chest pain (Acute) Hypoxia (Acute) Hyperlipidemia COVID-19 (Acute) Abdominal pain Intractable right lower quadrant abdominal pain (Acute) Acute right flank pain (Acute) Severe right inguinal pain Right lower quadrant abdominal pain Encounter for pre-operative examination Primary osteoarthritis, 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 History of back surgery Thoracic/lumbar S/P cholecystectomy Lap cholecystectomy (02/15/19): Grade 2 view, MAC 3.0, ETT 7.0 at [facility]. No issues noted per post-op anesthesia progress note. History of hysterectomy Total H/O colonoscopy H/O vein stripping H/O esophagogastroduodenoscopy Family History Other Heart disease No family history of adverse response to anesthesia Ovarian cancer Social History Smoking Status: Never smoker Second Hand Exposure: No; Do You Dip or Chew Tobacco: No; Hx Alcohol Use: No Hx Substance Use: No Preferred Language: Taiwanese Communication Ability: Effective Visual Impairment: No Limitations Buttonhole Maker Hand Required: No Beliefs That Will Affect Care: None marital status: Current Living Situation: Spouse Other Information That Helps Us Care for You: No Feels Safe at Home: Yes Assistive Devices: Cane, Glasses and Walker Review of Systems Review of Systems: All systems reviewed & are unremarkable except as noted in HPI & below Physical Exam Physical Exam: General- not in distress Head- deep laceration seen on left frontal head Eyes- PERRL. ENT- oropharynx clear Neck- supple, no JVD. Lungs- clear to auscultation no wheezing or crackles Heart- regular rhythm; no murmur, no gallop. Abdomen- normal bowel sounds, soft, nontender, no distension Extremities- left wrist in splint. Neuro- alert, oriented PERRL, no facial palsy; no dysarthria; moves extremities Results & Data Results & Data Vital Signs (Past 12 Hours) Vital Signs Temp Pulse Pulse Resp BP BP Pulse Ox 04/04/25 23:00 64 20 111/68 93 04/04/25 22:00 72 18 126/75 97 04/04/25 21:05 63 04/04/25 21:00 69 18 134/78 97 04/04/25 20:00 68 18 145/88 H 98 04/04/25 19:00 83 18 156/86 H 97 04/04/25 18:31 92 H 20 173/96 H 97 04/04/25 18:31 76 20 173/96 H 97 04/04/25 17:46 98 04/04/25 17:30 63 20 95 04/04/25 17:30 80 20 162/108 H 95 04/04/25 17:08 69 04/04/25 16:59 36.8 C 68 22 162/108 H 98 O2 Del Method 04/04/25 23:00 Room Air 04/04/25 22:00 Room Air 04/04/25 21:05 04/04/25 21:00 Room Air 04/04/25 20:00 Room Air 04/04/25 19:00 Room Air 04/04/25 18:31 Room Air 04/04/25 18:31 Room Air 04/04/25 17:46 Room Air 04/04/25 17:30 Room Air 04/04/25 17:30 Room Air 04/04/25 17:08 04/04/25 16:59 Room Air Diagnostic Findings Laboratory Results WBC 6.14 K/ul (4.8-10.8) 04/04/25 17:05 RBC 4.05 M/uL (4.20-5.40) L 04/04/25 17:05 Hgb 13.2 g/dl (12.0-16.0) 04/04/25 17:05 Hct 39.4 % (37.0-47.0) 04/04/25 17:05 MCV 97.3 fL (80.0-100.0) 04/04/25 17:05 MCH 32.6 pg (25.0-34.0) 04/04/25 17:05 MCHC 33.5 g/dL (32.0-36.0) 04/04/25 17:05 RDW Std Deviation 48.0 fL (36.4-46.3) H 04/04/25 17:05 RDW Coeff of Bill 13.4 % (11.5-14.5) 04/04/25 17:05 Plt Count 221 K/uL (130-400) 04/04/25 17:05 MPV 9.5 fL (9.4-12.4) 04/04/25 17:05 Immature Gran % (Auto) 0.2 % 04/04/25 17:05 Neut % (Auto) 62.5 % 04/04/25 17:05 Lymph % (Auto) 30.1 % 04/04/25 17:05 [place] % (Auto) 7.2 % 04/04/25 17:05 Eos % (Auto) 0.0 % 04/04/25 17:05 Baso % (Auto) 0.0 % 04/04/25 17:05 Neut # (Auto) 3.84 K/uL (1.40-6.50) 04/04/25 17:05 Lymph # (Auto) 1.85 K/uL (1.20-3.40) 04/04/25 17:05 [place]gs # (Auto) 0.44 K/uL (0.11-0.59) 04/04/25 17:05 Eos # (Auto) 0.00 K/uL (0.00-0.50) 04/04/25 17:05 Baso # (Auto) 0.00 K/uL (0.00-0.20) 04/04/25 17:05 Immature Gran # (Auto) 0.01 K/uL (0.01-0.20) 04/04/25 17:05 PT 10.1 Seconds (9.0-12.0) 04/04/25 17:05 INR 0.9 (0.9-1.1) 04/04/25 17:05 APTT 24 Seconds (21-31) 04/04/25 17:05 PTT Ratio 0.9 04/04/25 17:05 Sodium 136 mmol/L (136-145) 04/04/25 17:05 Potassium 4.4 mmol/L (3.5-5.1) 04/04/25 17:05 Chloride 103 mmol/L (98-107) 04/04/25 17:05 Carbon Dioxide 27 mmol/L (21-32) 04/04/25 17:05 Anion Gap 6 (3-11) 04/04/25 17:05 BUN 24 mg/dl (6-23) H 04/04/25 17:05 Creatinine 1.23 mg/dl (0.6-1.2) H 04/04/25 17:05 Est Cr Clr Drug Dosing 40.4 ml/min 04/04/25 17:05 eGFR 44.98 04/04/25 17:05 BUN/Creatinine Ratio 19.5 (10-20) 04/04/25 17:05 Glucose 114 mg/dl (70-99(Fasting)) H 04/04/25 17:05 Calcium 10.0 mg/dl (8.6-10.3) 04/04/25 17:05 Total Bilirubin 0.5 mg/dl (0.2-1.0) 04/04/25 17:05 AST 17 U/L (13-39) 04/04/25 17:05 ALT 12 U/L (7-52) 04/04/25 17:05 Alkaline Phosphatase 33 U/L (34-104) L 04/04/25 17:05 Troponin I High Sens 5.0 pg/ml (0-14) 04/04/25 17:05 Total Protein 7.4 gm/dl (6.0-8.3) 04/04/25 17:05 Albumin 4.4 gm/dl (3.4-5.0) 04/04/25 17:05 Globulin 3.0 gm/dl (2.5-4.0) 04/04/25 17:05 Albumin/Globulin Ratio 1.5 (0.9-2) 04/04/25 17:05 Urine Color Yellow 04/04/25 19:33 Urine Appearance Clear (Clear) 04/04/25: Urine pH 7.5 (4.5-7.5) 04/04/25: Ur Specific [place] 1.032 (1.000-1.030) H 04/04/25:33 Urine Protein Negative (Negative) 04/04/25: Urine Glucose (UA) Negative (Negative) 04/04/25: Urine Ketones Negative (Negative) 07/22/25 19:33 Urine Blood Negative (Negative) 04/04/25 19:33 Urine Nitrite Negative (Negative) 04/04/25 19:33 Urine Bilirubin Negative (Negative) 04/04/25 19:33 Urine Urobilinogen Negative (Negative) 04/04/25 19:33 Ur Leukocyte Esterase 3+ (Negative) H 04/04/25 19:33 Urine WBC (Auto) 21-50 /hpf (0-5) H 04/04/25 19:33 Urine RBC (Auto) 0-2 /hpf (0-2) 04/04/25 19:33 U Hyaline Cast (Auto) 0-2 /lpf (0-2) 04/04/25 19:33 U Epithel Cells (Auto) 0-2 /hpf (0-2) 04/04/25 19:33 Urine Bacteria (Auto) None Seen (None Seen) 04/04/25 19:33 Urine Comment 04/04/25 19:33 Impressions Chest X-Ray 04/04/25 17:42 Chest radiograph, one view History: Trauma Comparison: March 28, 2025 Findings: Single AP view of the chest performed. No focal consolidation or pleural effusion. No pneumothorax. The cardiomediastinal silhouette is within normal limits. Normal pulmonary vascularity. No evidence for lymphadenopathy. No visualized bony or soft tissue abnormality. Left shoulder arthroplasty in place, with cerclage wires. Impression: Normal chest radiograph Electronically signed by Eric Hyman 04-04-2025 6:[address] 04/04/25 17:42 CT LUMBAR SPINE WITHOUT CONTRAST: HISTORY: TRAUMA TECHNIQUE: Noncontrast CT examination of the lumbar spine is performed. Coronal and sagittal reformats were created. COMPARISON: CT lumbar spine June 05, 2023 FINDINGS: LUMBAR SPINE: There is no significant vertebral body height loss. No acute traumatic fracture identified. Redemonstrated postoperative changes lumbar spine fusion and decompressive laminectomy without significant change. There is no significant spondylolisthesis. Usual lumbar lordosis is preserved. Multilevel degenerative changes characterized by disc space loss, broad based disc bulge/herniations with endplate changes of the vertebral bodies with small marginal osteophytes as well as bilateral facet hypertrophy and thickening of the ligamentum flavum resulting in crowding of the subarticular recesses and narrowing of neural foramina worst at L4-S1. IMPRESSION: No acute traumatic fracture of the lumbar spine. Multilevel degenerative changes as above Electronically signed by Rick Crook 04-04-2025 7:58 PM Abdomen/Pelvis CT 04/04/25 17:43 CT CHEST ABDOMEN and PELVIS WITH CONTRAST INDICATION: TRAUMA TECHNIQUE: CT of chest, abdomen and pelvis was obtained with intravenous contrast. IV CONTRAST: 100 mL of OMNIPAQUE 300 Enteric contrast: Not Given COMPARISON: Thoracic CT January 12, 2023 FINDINGS: LOWER NECK: Normal thyroid. LYMPH NODES: A few small nonenlarged lymph nodes in the mediastinum. No lymphadenopathy by size criteria. CARDIOVASCULAR: Cardiac size is normal. Coronary artery calcifications are noted. No aortic aneurysm. LUNGS: The trachea and central bronchi are widely patent. No focal confluent infiltrates are seen. There are no pulmonary nodules. Unchanged subcentimeter pulmonary nodules PLEURA: There are no pleural effusions. There is no pneumothorax. LIVER: No focal lesion identified. GALLBLADDER/BILIARY: Surgically absent gallbladder. No abnormal biliary dilatation. SPLEEN: Unremarkable. PANCREAS: Unremarkable. ADRENALS: Unremarkable. KIDNEYS: Atrophic kidneys. Cortical cysts. No stones or hydronephrosis identified. PERITONEUM/RETROPERITONEUM. No lymphadenopathy by size criteria. No aortic aneurysm. Mild atherosclerosis GASTROINTESTINAL: No obstruction. REPRODUCTIVE: Status post hysterectomy BONES: No acute findings. IMPRESSION: No evidence of acute trauma to the thorax, the abdomen or the pelvis Electronically signed by Rick Crook 04-04-2025 8:[address] 04/04/25 17:43 CT CERVICAL SPINE WITHOUT CONTRAST: HISTORY: Trauma TECHNIQUE: Noncontrast CT examination of the cervical thoracic lumbar spine is performed. Coronal and sagittal reformats were created. COMPARISON: Cervical spine CT June 05, 2023 FINDINGS: CERVICAL SPINE: There is no significant vertebral body height loss. No acute traumatic fracture identified. There is no significant spondylolisthesis. Multilevel degenerative changes characterized by disc osteophyte complex, bilateral facet and uncovertebral hypertrophy resulting and neural foraminal narrowing at multiple levels, worst at mid to lower spine. Visualized soft tissues of neck are unremarkable. Visualized lung apex is clear. IMPRESSION: No acute traumatic fracture of the cervical spine. Multilevel degenerative changes as above Electronically signed by Rick Crook 04-04-2025 7:[address] 04/04/25 17:43 CT CHEST ABDOMEN and PELVIS WITH CONTRAST INDICATION: TRAUMA TECHNIQUE: CT of chest, abdomen and pelvis was obtained with intravenous contrast. IV CONTRAST: 100 mL of OMNIPAQUE 300 Enteric contrast: Not Given COMPARISON: Thoracic CT January 12, 2023 FINDINGS: LOWER NECK: Normal thyroid. LYMPH NODES: A few small nonenlarged lymph nodes in the mediastinum. No lymphadenopathy by size criteria. CARDIOVASCULAR: Cardiac size is normal. Coronary artery calcifications are noted. No aortic aneurysm. LUNGS: The trachea and central bronchi are widely patent. No focal confluent infiltrates are seen. There are no pulmonary nodules. Unchanged subcentimeter pulmonary nodules PLEURA: There are no pleural effusions. There is no pneumothorax. LIVER: No focal lesion identified. GALLBLADDER/BILIARY: Surgically absent gallbladder. No abnormal biliary dilatation. SPLEEN: Unremarkable. PANCREAS: Unremarkable. ADRENALS: Unremarkable. KIDNEYS: Atrophic kidneys. Cortical cysts. No stones or hydronephrosis identified. PERITONEUM/RETROPERITONEUM. No lymphadenopathy by size criteria. No aortic aneurysm. Mild atherosclerosis GASTROINTESTINAL: No obstruction. REPRODUCTIVE: Status post hysterectomy BONES: No acute findings. IMPRESSION: No evidence of acute trauma to the thorax, the abdomen or the pelvis Electronically signed by Rick Crook 04-04-2025 8:[address] 04/04/25 17:43 CT MAXILLOFACIAL WITHOUT CONTRAST: HISTORY: Trauma TECHNIQUE: Noncontrast CT examination of the face is performed. Coronal and sagittal reformats were created. COMPARISON: None. FINDINGS: No acute traumatic fracture is identified. Mild mucosal thickening of the paranasal sinuses. The mastoids are aerated. There is a laceration in the left frontal scalp. IMPRESSION: No acute traumatic facial fracture is identified. Left frontal scalp laceration. Electronically signed by Rick Crook 04-04-2025 8:[address] 04/04/25 17:43 Technique: Axial computed tomography images were obtained of the brain without intravenous contrast. Findings: There is diffuse cerebral atrophy, within expected limits for the patient's age. Areas of decreased attenuation are seen within the periventricular white matter, likely representing chronic small vessel ischemic disease. There is no definite sign of acute or old infarction. No intracranial hemorrhage is evident. No definite mass lesion is seen on this noncontrast examination. There is no midline shift or other form of herniation. No hydrocephalus is seen. No fracture is identified. The orbits and the visualized paranasal sinuses appear unremarkable. The mastoid air cells appear clear. Impression: 1. Cerebral atrophy and chronic small vessel ischemic disease 2. Otherwise unremarkable noncontrast CT of the brain Electronically signed by Rick Anderson 04-04-2025 7:[address] 04/04/25 17:43 CT THORACIC SPINE WITHOUT CONTRAST: HISTORY: TRAUMA TECHNIQUE: Noncontrast CT examination of the thoracic spine is performed. Coronal and sagittal reformats were created. COMPARISON: Cervical spine CT 2022 FINDINGS: THORACIC SPINE: No significant vertebral body height loss. No significant change in the mild compression deformity along the superior endplate of T1 vertebral body without significant retropulsion compared to cervical spine CT examination from 2022. No acute traumatic fracture identified. There is no significant spondylolisthesis. Usual thoracic kyphosis is preserved. Multilevel degenerative changes characterized by disc space loss with endplate changes of the vertebral bodies with small marginal osteophytes. Transferred back IMPRESSION: No acute traumatic fracture of the thoracic spine. Multilevel degenerative changes as above Electronically signed by Rick Crook 04-04-2025 7:58 PM Wrist X-Ray 04/04/25 18:11 Study: Left wrist 5 views History: Pain Comparison: None Findings: There is no acute fracture or dislocation. Alignment is anatomic. Joint spaces are well maintained. There is no joint effusion or significant soft tissue swelling. Bone mineralization is decreased. Impression: No acute bony abnormality Electronically signed by Eric Hyman 04-04-2025 6:41 PM Code Status & VTE Plan VTE Prophylaxis Plan VTE Prophylaxis will be ordered: Yes
--- NOTE | 2025-04-05 01:14 | Oral/Maxillofacial Consult ---
Date of Consultation April 05, 2025 Assessment & Plan (1) Complex laceration of face: (2) Fall: History of Present Illness History of Present Illness Jacquelyn is a 79 year-old female who inadvertently tripped this afternoon April 04 sustaining a extremely deep laceration above her left eyebrow and the forehead. According to reports, she tripped fell and hit her left forehead/eyebrow on the concrete. This caused an explosive wound above the left eyebrow deep to the subcutaneous tissue involving the muscle with exposure of the skull bone. CT scan does not show any fractures of the bone of the super orbital rim.The Laceration is deep complex. Given the complexity and depth of the laceration, I was called by the emergency room by the ER Physician's scheduling assistant to give my opinion as far as the best way of treating THIS COMPLEX WOUND. the laceration involves multiple planes of tissue and a good possibility that the frontalis muscles of the forehead is transected, repairing this complex wound in the operating room under more sterile conditions would be most appropriate. She has some lag in raising the eft eyebrow which can be from the muscle and skin wound or compression and stretching of the nerve. My plan would be to have her admitted to the medical service for evaluation of her dizziness and other medical issues, keep her NPO this evening with an operation plan for Thursday. With general anesthetic in the operating room scrub the wound, clean any foreign body material and find the muscular layer of the frontalis muscle to reattach it,then with a closure of the soft tissue, finally address the surrounding abrasions and contusions. Hopefully after the procedure, she can be discharged either Thursday afternoon or morning, depending on how she does I will be following her in my office for suture removal and ongoing wound care. I reviewed the procedure with Jacquelyn and all risks were discussed --pain, swelling, infection, scar, bleeding, nerve damage to eye brow and need for revision. OK for the panned procedure, consent signed. Allergies Allergy/AdvReac Type Severity Reaction Status Date / Time phenazopyridine Allergy Intermediate Pruritis Verified 04/04/25 19:30 Sulfa (Sulfonamide Allergy Intermediate Hives Verified 04/04/25 19:30 Antibiotics) omeprazole [From Prilosec] AdvReac Severe Seizure Verified 04/04/25 19:30 domperidone AdvReac Intermediate Balance Verified 04/04/25 19:30 issues metoclopramide AdvReac Intermediate Balance Verified 04/04/25 19:30 issues tramadol AdvReac Intermediate Diarrhea Verified 04/04/25 19:30 Home Medications Medication Instructions Recorded Confirmed Type citalopram 20 mg tablet 20 mg PO QAM 05/31/18 04/04/25 History lamotrigine 200 mg tablet 400 mg PO BID 05/31/18 04/04/25 History rosuvastatin 5 mg tablet 5 mg PO QAM 08/16/20 04/04/25 History ascorbic acid (vitamin C) 500 mg 500 mg PO QAM 02/05/23 04/04/25 History tablet (Vitamin C) aspirin 81 mg chewable tablet 81 mg PO QAM 03/28/25 04/04/25 History (Aspirin Childrens) buspirone 10 mg tablet 10 mg PO BID 03/28/25 04/04/25 History cholecalciferol (vitamin D3) 25 25 mcg PO QAM 03/28/25 04/04/25 History mcg (1,000 unit) tablet (Vitamin D3) clonazepam 0.5 mg tablet 0.5 mg PO BID PRN Anxiety 03/28/25 04/04/25 History meclizine 25 mg tablet 25 mg PO TID PRN Dizziness 03/28/25 04/04/25 History pantoprazole 20 mg tablet,delayed 40 mg PO QAM 03/28/25 04/04/25 History release propranolol 10 mg tablet 10 mg PO TID 03/28/25 04/04/25 History vitamin B complex 1 cap PO QAM 03/28/25 04/04/25 History Patient History Medical History Left flank pain, chronic Following with PCP and possibly PT Pain worsens with laying flat or on left side History of COVID-19 Dx 2019, mild symptoms History of high cholesterol Temporomandibular joint disorder + clicking, + locking 10/2021 at dentist (unlocked with massage) Cerda esophagus Depression PE (pulmonary embolism) B/L 2011, previously on coumadin Surgical History Hx of total shoulder replacement lt. History of back surgery Thoracic/lumbar S/P cholecystectomy Lap cholecystectomy (6/4/19): Grade 2 view, MAC 3.0, ETT 7.0 at [facility]. No issues noted per post-op anesthesia progress note. History of hysterectomy Total H/O colonoscopy H/O vein stripping H/O esophagogastroduodenoscopy Family History Other Heart disease No family history of adverse response to anesthesia Ovarian cancer Social History Smoking Status: Never smoker Second Hand Exposure: No; Do You Dip or Chew Tobacco: No; Hx Alcohol Use: No Hx Substance Use: No Preferred Language: Nepali Communication Ability: Effective Visual Impairment: No Limitations Paint Tinter Required: No Beliefs That Will Affect Care: None marital status: Current Living Situation: Spouse Other Information That Helps Us Care for You: No Feels Safe at Home: Yes Assistive Devices: Cane, Glasses and Walker Results & Data Vital Signs (Past 12 Hours) Vital Signs Temp Pulse Pulse Resp BP BP Pulse Ox 04/05/25 00:56 69 18 117/72 95 04/05/25 00:00 63 17 117/72 93 04/05/25 00:00 58 L 17 117/72 93 04/04/25 23:00 64 20 111/68 93 04/04/25 22:00 72 18 126/75 97 04/04/25 21:05 63 04/04/25 21:00 69 18 134/78 97 04/04/25 20:00 68 18 145/88 H 98 04/04/25 19:00 83 18 156/86 H 97 04/04/25 18:31 92 H 20 173/96 H 97 04/04/25 18:31 76 20 173/96 H 97 04/04/25 17:46 98 04/04/25 17:30 63 20 95 04/04/25 17:30 80 20 162/108 H 95 04/04/25 17:08 69 04/04/25 16:59 36.8 C 68 22 162/108 H 98 O2 Del Method O2 Flow Rate 04/05/25 00:56 Nasal Cannula 2 04/05/25 00:00 Room Air 04/05/25 00:00 Room Air 04/04/25 23:00 Room Air 04/04/25 22:00 Room Air 04/04/25 21:05 04/04/25 21:00 Room Air 04/04/25 20:00 Room Air 04/04/25 19:00 Room Air 04/04/25 18:31 Room Air 04/04/25 18:31 Room Air 04/04/25 17:46 Room Air 04/04/25 17:30 Room Air 04/04/25 17:30 Room Air 04/04/25 17:08 04/04/25 16:59 Room Air PG Care Time/CCT Total # of Minutes Spent Total Time Spent with Patient: Total time spent is greater than 50% in coordination of care (as documented) at patient's floor/unit and/or counseling patient: Coding Level of Care Code 95739 OFFICE CONSULT LVL Diagnoses Complex laceration of face, subsequent encounter S01.91XD Encounter type: subsequent encounter Fall, subsequent encounter W19.XXXD Encounter type: subsequent encounter CPT Codes COMPLEX REPAIR FH/CHK/CHN/M/NCK/AX/GEN/HAND/FEET 2.6-7.5 CM - 87541 ([id number]) (1) Complex laceration of face Encounter type: subsequent encounter Qualified Code(s): S01.91XD - Laceration without foreign body of unspecified part of head, subsequent encounter (2) Fall Encounter type: subsequent encounter Qualified Code(s): W19.XXXD - Unspecified fall, subsequent encounter
[2025-04-05] MEDS ORDERED: ONDANSETRON INJ 2 MG/ML 2 ML VIAL IV PRN ×2 (01:37→09:06)
[2025-04-05] MEDS ORDERED: POLYETHYLENE (MIRALAX) 17 GM PACK PO PRN (01:37)
[2025-04-05] MEDS ORDERED: NITROGLYCERIN SL 0.4 MG/TAB TAB SL PRN (01:37)
[2025-04-05] MEDS: ACETAMINOPHEN 1,000 MG/100 ML VIAL IV PRN (01:51)
[2025-04-05] MEDS: SODIUM CHLORIDE 0.9% 1,000 ML IV SCH (01:51)
[2025-04-05] MEDS: FAMOTIDINE 20MG IV PUSH 20 MG/5 ML SYR IV STA (01:52)
[2025-04-05] MEDS: AMPICILLIN/SULBACTAM SOD 3,000 MG/100 ML BAG IV SCH (02:43)
[2025-04-05 05:41] LABS: Hematocrit (blood only) 35.7 % (37.0-47.0); Hemoglobin 12.0 g/dl (12.0-16.0); Immature Granulocytes # (auto) 0.01 K/uL (0.01-0.20); Immature Granulocytes % (auto) 0.2 %; Mean Corpuscular Hemoglobin 33.1 pg (25.0-34.0); Mean Corpuscular Volume 98.6 fL (80.0-100.0); Platelet Count 184 K/uL (130-400); RDW Standard Deviation 48.1 fL (36.4-46.3); Red Blood Count 3.62 M/uL (4.20-5.40); White Blood Count 5.83 K/ul (4.8-10.8)
[2025-04-05 05:58] LABS: Anion Gap 5.0 (3-11); Blood Urea Nitrogen 19.0 mg/dl (6-23); Calcium 9.2 mg/dl (8.6-10.3); Carbon Dioxide 27.0 mmol/L (21-32); Chloride 106.0 mmol/L (98-107); Creatinine Clr Calc Pharmacy 48.7 ml/min; Glucose 113.0 mg/dl (70-99(Fasting)); Magnesium 2.5 mg/dl (1.7-2.4); Potassium 4.6 mmol/L (3.5-5.1); Sodium 138.0 mmol/L (136-145)
[2025-04-05] MEDS ORDERED: DEXAMETHASONE SOD INJ 4 MG/ML VIAL ONE (08:05)
[2025-04-05] MEDS ORDERED: ONDANSETRON INJ 2 MG/ML 2 ML VIAL ONE (08:05)
[2025-04-05] MEDS ORDERED: ROCURONIUM BROMIDE 10 MG/ML 5 ML VIAL IV ONE (08:05)
[2025-04-05] MEDS ORDERED: PROPOFOL IV EMULSION 10 MG/ML 20 ML VIAL IV ONE (08:05)
[2025-04-05] MEDS ORDERED: SUGAMMADEX SODIUM 200 MG/2 ML VIAL IV ONE (08:06)
[2025-04-05] MEDS: lamoTRIgine 100 MG TAB PO SCH (08:11)
[2025-04-05] MEDS: CITALOPRAM 20 MG TAB PO SCH (08:12)
[2025-04-05] MEDS: busPIRone 5 MG TAB PO SCH (08:12)
[2025-04-05] MEDS: PROPRANOLOL HCL 10 MG TAB PO SCH (08:13)
[2025-04-05] MEDS ORDERED: HYDROmorphone INJ 2 MG/ML SYR/VIAL IV PRN (09:06)
[2025-04-05] MEDS ORDERED: ATROPINE SULFATE 0.1 MG/ML 10ML SYR IV PRN (09:06)
[2025-04-05] MEDS ORDERED: PROMETHAZINE HCL 6.25 MG in SODIUM CHLORIDE 0.9% 50 ML IV PRN (09:06)
--- NOTE | 2025-04-05 09:06 | Anesthesiology Consultation ---
Date of Service April 05, 2025 Assessment & Plan ASA ASA3 Proposed Anesthesia Anesthesia Type: General Risk / Benefits Reviewed With: PT / POA / Parent / Guardian, Accepts Plan and Informed Consent Obtained History Surgery Operation Date: 04/05/25 07:00 Proposed Procedures p Repair Laceration Left Eyebrow/Forehead - Oli Quick DMD Height/Weight Height: 5 ft 6 in Weight: 89.1 kg Allergies Allergy/AdvReac Type Severity Reaction Status Date / Time phenazopyridine Allergy Intermediate Pruritis Verified 04/04/25 19:30 Sulfa (Sulfonamide Allergy Intermediate Hives Verified 04/04/25 19:30 Antibiotics) omeprazole [From Prilosec] AdvReac Severe Seizure Verified 04/04/25 19:30 domperidone AdvReac Intermediate Balance Verified 04/04/25 19:30 issues metoclopramide AdvReac Intermediate Balance Verified 04/04/25 19:30 issues tramadol AdvReac Intermediate Diarrhea Verified 04/04/25 19:30 Medications Home Medications Medication Instructions Recorded Confirmed Last Taken citalopram 20 mg tablet 20 mg PO QAM 05/31/18 04/04/25 04/04/25 lamotrigine 200 mg tablet 400 mg PO BID 05/31/18 04/04/25 04/04/25 08:00 rosuvastatin 5 mg tablet 5 mg PO QAM 08/16/20 04/04/25 04/04/25 ascorbic acid (vitamin C) 500 mg 500 mg PO QAM 02/05/23 04/04/25 04/04/25 tablet (Vitamin C) aspirin 81 mg chewable tablet 81 mg PO QAM 03/28/25 04/04/25 04/04/25 (Aspirin Childrens) buspirone 10 mg tablet 10 mg PO BID 03/28/25 04/04/25 04/04/25 08:00 cholecalciferol (vitamin D3) 25 25 mcg PO QAM 03/28/25 04/04/25 04/04/25 mcg (1,000 unit) tablet (Vitamin D3) clonazepam 0.5 mg tablet 0.5 mg PO BID PRN Anxiety 03/28/25 04/04/25 Unknown meclizine 25 mg tablet 25 mg PO TID PRN Dizziness 03/28/25 04/04/25 Unknown pantoprazole 20 mg tablet,delayed 40 mg PO QAM 03/28/25 04/04/25 04/04/25 release propranolol 10 mg tablet 10 mg PO TID 03/28/25 04/04/25 04/04/25 14:00 vitamin B complex 1 cap PO QAM 03/28/25 04/04/25 04/04/25 Active Medications Generic Name Dose Route Start Last Admin Trade Name Jaylin PRN Reason Stop Dose Admin Buspirone HCl 10 mg 04/05/25 09:00 04/05/25 08:12 Buspirone 5 Mg Tab PO 05/05/25 08:59 10 mg BID ÁNGEL Administration Citalopram Hydrobromide 20 mg 04/05/25 09:00 04/05/25 08:12 Citalopram 20 Mg Tab PO 05/05/25 08:59 20 mg QAM ÁNGEL Administration Ampicillin Sodium/Sulbactam Sodium 3,000 mg in 100 mls @ 200 mls/hr 04/05/25 03:00 04/05/25 08:58 Unasyn IV 04/12/25 02:59 Infused Q6H ÁNGEL Infusion Acetaminophen 1,000 mg in 100 mls @ 400 mls/hr 04/05/25 01:37 04/05/25 02:06 Ofirmev IV 04/08/25 01:36 Infused Q8H PRN Infusion Pain or Fever Sodium Chloride 1,000 mls @ 100 mls/hr 04/05/25 01:37 04/05/25 01:51 Nss IV 04/08/25 01:36 100 mls/hr .Q10H ÁNGEL Administration Lamotrigine 400 mg 04/05/25 09:00 04/05/25 08:11 Lamotrigine 100 Mg Tab PO 05/05/25 08:59 400 mg BID ÁNGEL Administration Protocol Pantoprazole Sodium 40 mg 04/05/25 09:00 04/05/25 08:12 Pantoprazole 40 Mg Tab PO 05/05/25 08:59 40 mg QAM ÁNGEL Administration Propranolol HCl 10 mg 04/05/25 09:00 04/05/25 08:13 Propranolol Hcl 10 Mg Tab PO 05/05/25 08:59 10 mg TID ÁNGEL Administration NPO Date Last Intake of Fluids: 04/05/25 Time Last Intake of Fluids: 08:25 Last Intake of Fluids Comment: sip with meds Date Last Intake of Solids: 04/04/25 Time Last Intake of Solids: 11:00 Past Medical History Medical History Left flank pain, chronic Following with PCP and possibly PT Pain worsens with laying flat or on left side History of COVID-19 Dx 2019, mild symptoms History of high cholesterol Temporomandibular joint disorder + clicking, + locking 10/2021 at dentist (unlocked with massage) Cerda esophagus Depression PE (pulmonary embolism) B/L 2011, previously on coumadin Exercise / Class Metabolic Activity II 4-5 Yardwork/Stairs/Walk up hill Past Family History Family History Other Heart disease No family history of adverse response to anesthesia Ovarian cancer Past Surgical History Surgical History Hx of total shoulder replacement lt. History of back surgery Thoracic/lumbar S/P cholecystectomy Lap cholecystectomy (02/15/19): Grade 2 view, MAC 3.0, ETT 7.0 at [facility]. No issues noted per post-op anesthesia progress note. History of hysterectomy Total H/O colonoscopy H/O vein stripping H/O esophagogastroduodenoscopy Past Anesthesia History No Hx of Anesthesia Complications and No Family Hx of Anesthesia Complications History of PONV No Hx of PONV and No Hx of Motion Sickness Social History Smoking Status: Never smoker Do You Dip or Chew Tobacco: No Hx Alcohol Use: No Hx Substance Use: No substance use type: does not use Review of Systems denies fever/cough/ colds/ chest pain/ SOB/ JOSE denies JOSE Physical Exam Vital Signs Last Vital Signs Temp 36.6 C 04/05/25 08:34 Pulse 65 04/05/25 08:34 Resp 18 04/05/25 08:34 BP 127/76 04/05/25 08:11 Pulse Ox 95 04/05/25 08:34 O2 Del Method Room Air 04/05/25 08:34 O2 Flow Rate 2 04/05/25 00:56 ENMT Mouth: + dentures; no TMJ abnormality and no dentition abnormality Thyromental Distance: > or= 3.5 Finger Breadths Mallampati Class: II Neck neck extension not limited Respiratory normal respiratory effort; no respiratory distress Auscultation: lungs clear to auscultation bilaterally Cardiovascular Rate/Rhythm: regular rate and regular rhythm Neurologic moves all extremities Psychiatric Orientation: alert and oriented x 3 Testing Laboratory Results 04/05/25 05:25 04/05/25 05:25 PT 10.1 Seconds (9.0-12.0) 04/04/25 17:05 INR 0.9 (0.9-1.1) 04/04/25 17:05 APTT 24 Seconds (21-31) 04/04/25 17:05 Urine Color Yellow 04/04/25 19:33 Urine Appearance Clear (Clear) 04/04/25 19:33 Urine pH 7.5 (4.5-7.5) 04/04/25 19:33 Ur Specific [place] 1.032 (1.000-1.030) H 04/04/25 19:33 Urine Protein Negative (Negative) 04/04/25 19:33 Urine Glucose (UA) Negative (Negative) 04/04/25 19:33 Urine Ketones Negative (Negative) 04/04/25 19:33 Urine Nitrite Negative (Negative) 04/04/25 19:33 Ur Leukocyte Esterase 3+ (Negative) H 04/04/25 19:33 Urine WBC (Auto) 21-50 /hpf (0-5) H 04/04/25 19:33 Urine RBC (Auto) 0-2 /hpf (0-2) 04/04/25 19:33 U Hyaline Cast (Auto) 0-2 /lpf (0-2) 04/04/25 19:33 U Epithel Cells (Auto) 0-2 /hpf (0-2) 04/04/25 19:33 Urine Bacteria (Auto) None Seen (None Seen) 04/04/25 19:33
--- NOTE | 2025-04-05 09:58 | History & Physical Bridge Note ---
Date of Service April 05, 2025 History & Physical Bridge Note I have examined the patient, reviewed the History & Physical and in the interval since the performance of the History & Physical I have noted the following changes of clinical significance: no changes noted OK for the procedure
[2025-04-05] MEDS ORDERED: ARTIFICIAL TEARS OP OINT 3.5 GM TUBE ONE (10:14)
[2025-04-05] MEDS ORDERED: SUCCINYLCHOLINE 100MG/5ML SYR IV ONE (10:31)
[2025-04-05] MEDS: BUPIVACAINE/EPINEPHRINE 0.5% 1:200,000 1.8 ML CARP ONE (10:50)
[2025-04-05] MEDS: STERILE IRRIGATING OPTH SOLUTION (BSS) 15ML ONE (10:51)
--- NOTE | 2025-04-05 11:08 | Post Operative Brief Note ---
PG Immediate Post Op with CF Date of Surgery April 05, 2025 Pre & Post Diagnosis Operation Date: 04/05/25 07:00 <No data on this case meets the specified criteria> I identified the patient and participated in the time-out.: Yes Procedure Operation Date: 04/05/25 07:00 <No data on this case meets the specified criteria> Surgeon Oli Quick, DMD Sheet Rock Taper none Estimated Blood Loss 4 Findings Consistent with Post-Op Diagnosis deep complex left supraorbital area 5 cm laceration Anesthesia Type General Complications none Disposition Accompanied Patient To Recovery: Yes
--- NOTE | 2025-04-05 11:54 | Anesthesiology Progress Note ---
Date of Service April 05, 2025 Anesthesia Post Procedure Vital Signs Vital Signs: Temp Pulse Pulse Resp BP BP BP 04/05/25 11:35 36.5 C 72 16 122/74 04/05/25 11:25 77 16 128/73 04/05/25 11:15 72 14 117/70 04/05/25 11:06 36.1 C L 80 19 117/75 04/05/25 08:34 36.6 C 65 18 04/05/25 08:11 36.3 C L 66 23 127/76 04/05/25 01:26 04/05/25 01:26 36.5 C 115 H 18 157/77 H 04/05/25 01:10 67 04/05/25 00:56 69 18 117/72 04/05/25 00:00 63 17 117/72 04/05/25 00:00 58 L 17 117/72 04/04/25 23:00 64 20 111/68 04/04/25 22:00 72 18 126/75 04/04/25 21:05 63 04/04/25 21:00 69 18 134/78 04/04/25 20:00 68 18 145/88 H 04/04/25 19:00 83 18 156/86 H 04/04/25 18:31 92 H 20 173/96 H 04/04/25 18:31 76 20 173/96 H 04/04/25 17:46 04/04/25 17:30 63 20 04/04/25 17:30 80 20 162/108 H 04/04/25 17:08 69 04/04/25 16:59 36.8 C 68 22 162/108 H Pulse Ox O2 Del Method O2 Flow Rate 04/05/25 11:35 94 Room Air 04/05/25 11:25 96 Oxymask 2 04/05/25 11:15 96 Oxymask 4 04/05/25 11:06 97 Oxymask 6 04/05/25 08:34 95 Room Air 04/05/25 08:11 96 Room Air 04/05/25 01:26 Room Air 04/05/25 01:26 91 Room Air 04/05/25 01:10 04/05/25 00:56 95 Nasal Cannula 2 04/05/25 00:00 93 Room Air 04/05/25 00:00 93 Room Air 04/04/25 23:00 93 Room Air 04/04/25 22:00 97 Room Air 04/04/25 21:05 04/04/25 21:00 97 Room Air 04/04/25 20:00 98 Room Air 04/04/25 19:00 97 Room Air 04/04/25 18:31 97 Room Air 04/04/25 18:31 97 Room Air 04/04/25 17:46 98 Room Air 04/04/25 17:30 95 Room Air 04/04/25 17:30 95 Room Air 04/04/25 17:08 04/04/25 16:59 98 Room Air Pain Intensity Bilateral Head: Pain Intensity: 4 Transfer of Care Handoff Completed per policy Notes Mental Status: alert / awake / arousable and participated in evaluation Patient Amnestic to Procedure: Yes Nausea / Vomiting: adequately controlled Pain: adequately controlled Airway Patency, RR, SpO2: stable & adequate BP & HR: stable & adequate Hydration State: stable & adequate Anesthetic Complications: no major complications apparent and Pt Satisfied with anesthetic care
--- NOTE | 2025-04-05 13:02 | Hospitalist Progress Note ---
Date of Service April 05, 2025 Assessment & Plan (1) Fall: Plan: 79-year-old female with past medical history significant for hyperlipidemia, gastroparesis, Cerda's esophagus, diarrhea, CKD stage III, osteoporosis, epilepsy, chronic migraine, essential tremor, pulmonary embolism, depression, Helicobacter infection, GERD anxiety disorder, frequent falls, presents with fall and found to deep laceration to the left frontal part of the head. Patient is having on and off dizziness last 1 week. Patient gets these dizzy spells on and off. Today she was feeling fine. She was at her friend's house. came to pick her up. She was trying to come out to the porch when she was getting down the the steps she lost balance and fell and hit her head. No loss of consciousness. With help she was able to get up. Fall Deep laceration of the left forehead CT head, no acute findings Face CT. Left frontal scalp laceration seen. Chest CT, cervical spine CT, abdomen pelvis CT, lumbar spine CT no acute findings Chest x-ray no acute findings OMFS evaled, s/p Repair Laceration Left Eyebrow/Forehead 04/05. c/w IV Unasyn, Pain control Monitor med/daily Follow AM labs PT/OT Left wrist swelling: On splint, X-ray no fracture seen. ice compression. Possible UTI: Will follow cultures. On Unasyn Possible near syncope Chronic on and off dizziness On meclizine as needed, c/w Fluids today, Monitor orthostatics ECHO w/ EF of 65-70%, LV wall motion is normal. Med/telemetry, likely zio patch as OP. CKD stage III: Creatinine 1.2 around baseline. Will follow labs Hyperlipidemia: On statin Essential tremor: On propranolol Cerad's esophagus: Protonix Epilepsy: On Lamictal Depression, Generalized anxiety disorder: On buspirone and citalopram and Klonopin as needed DVT prophylaxis: SCDs for now Disposition: Med/telemetry Full code. Admission and Anticipated Discharge Date Admission Date: April 04, 2025 Subjective Patient was seen and examined at bedside. Patient was sitting up in bed, on room air, NAD, resting comfortably. Patient's family at bedside were also updated on plan of care. Patient is status post laceration repair on left face, reports operative site pain under control. Patient denies any recent febrile illness/flulike illness/sore throat/cough/pain or burning with passing urine/chest pain/shortness of breath/nausea/vomiting/diarrhea. Physical Exam Physical Exam: General- not in distress Head- left frontal head w/ dressing c/d/i Eyes- PERRL. ENT- oropharynx clear Neck- supple, no JVD. Lungs- clear to auscultation no wheezing or crackles Heart- regular rhythm; no murmur, no gallop. Abdomen- normal bowel sounds, soft, nontender, no distension Extremities- left wrist in splint. Neuro- alert, oriented PERRL, no facial palsy; no dysarthria; moves extremities Results & Data Results & Data Vital Signs (Past 12 Hours) Vital Signs Temp Pulse Pulse Resp BP BP BP 04/05/25 11:54 36.5 C 69 23 120/80 04/05/25 11:35 36.5 C 72 16 122/74 04/05/25 11:25 77 16 128/73 04/05/25 11:15 72 14 117/70 04/05/25 11:06 36.1 C L 80 19 117/75 04/05/25 08:34 36.6 C 65 18 04/05/25 08:11 36.3 C L 66 23 127/76 04/05/25 01:26 04/05/25 01:26 36.5 C 115 H 18 157/77 H 04/05/25 01:10 67 04/05/25 00:56 69 18 117/72 Pulse Ox O2 Del Method O2 Flow Rate 04/05/25 11:54 94 Room Air 04/05/25 11:35 94 Room Air 04/05/25 11:25 96 Oxymask 2 04/05/25 11:15 96 Oxymask 4 04/05/25 11:06 97 Oxymask 6 04/05/25 08:34 95 Room Air 04/05/25 08:11 96 Room Air 04/05/25 01:26 Room Air 04/05/25 01:26 91 Room Air 04/05/25 01:10 04/05/25 00:56 95 Nasal Cannula 2
[2025-04-05] MEDS: CHOLECALCIFEROL 25 MCG (1000 UNITS) TAB PO SCH (13:10)
[2025-04-05] MEDS: VITAMIN B COMPLEX TAB PO SCH (13:10)
[2025-04-05] MEDS: ROSUVASTATIN CALCIUM 5 MG TAB PO SCH (13:10)
[2025-04-05] MEDS: ASCORBIC ACID 500 MG TAB PO SCH (13:11)
[2025-04-05] MEDS: FAMOTIDINE 20MG IV PUSH 20 MG/5 ML SYR IV SCH (13:18)
[2025-04-06] MEDS: MoRPHine SULFATE 4 MG/ML 1 ML CARP\\VIAL IV PRN (05:49)
[2025-04-06 05:59] LABS: Hematocrit (blood only) 31.6 % (37.0-47.0); Hemoglobin 10.4 g/dl (12.0-16.0); Mean Corpuscular Hemoglobin 32.7 pg (25.0-34.0); Mean Corpuscular Volume 99.4 fL (80.0-100.0); Platelet Count 182 K/uL (130-400); RDW Standard Deviation 48.1 fL (36.4-46.3); Red Blood Count 3.18 M/uL (4.20-5.40); White Blood Count 7.02 K/ul (4.8-10.8)
[2025-04-06 06:19] LABS: Anion Gap 3.0 (3-11); Blood Urea Nitrogen 12.0 mg/dl (6-23); Calcium 8.2 mg/dl (8.6-10.3); Carbon Dioxide 27.0 mmol/L (21-32); Chloride 110.0 mmol/L (98-107); Creatinine Clr Calc Pharmacy 60.6 ml/min; Glucose 111.0 mg/dl (70-99(Fasting)); Potassium 4.3 mmol/L (3.5-5.1); Sodium 140.0 mmol/L (136-145)
--- NOTE | 2025-04-06 09:38 | Ultrasound Report ---
ULTRASOUND LEFT UPPER EXTREMITY VENOUS CLINICAL HISTORY: Left hand swelling. COMPARISON STUDY: None. TECHNIQUE: Real-time, grayscale, and color Doppler sonography of the deep veins of the left upper ext remity is performed. Compression and augmentation were utilized. FINDINGS: No evidence of DVT seen in the left upper extremity. IMPRESSION: No DVT seen. ACT 112: Act 112:Negative or not required by law. Electronically signed by: Bharath Villarreal M.D. 04/06/2025 9:36 AM
--- NOTE | 2025-04-06 11:19 | Progress Note ---
Date of Service April 06, 2025 Assessment & Plan Admission and Anticipated Discharge Date Admission Date: April 04, 2025 Subjective Post OP note for facial lacerations at 24 hours The repaired laceration is still covered, no bleeding, swelling less, no pain I reviewed that the dressing should remain on for 48 hours-discussed wound care To return to my office on April 17 at 1:15 Overall doing very well Suggest Keflex 500 TID x 5 days OK for discharge as per medical . Results & Data Vital Signs (Past 12 Hours) Vital Signs Temp Pulse Resp BP Pulse Ox O2 Del Method 04/06/25 08:57 36.6 C 78 18 107/66 04/06/25 02:32 36.6 C 68 18 132/69 92 Room Air PG Care Time/CCT Total # of Minutes Spent Total Time Spent with Patient: Total time spent is greater than 50% in coordination of care (as documented) at patient's floor/unit and/or counseling patient: Coding Level of Care Code None
[2025-04-06] MEDS: MECLIZINE HCL 25 MG TAB PO PRN (12:43)
--- NOTE | 2025-04-06 15:01 | Hospitalist Progress Note ---
Date of Service April 06, 2025 Assessment & Plan (1) Fall: Plan: 79-year-old female with past medical history significant for hyperlipidemia, gastroparesis, Cerda's esophagus, diarrhea, CKD stage III, osteoporosis, epilepsy, chronic migraine, essential tremor, pulmonary embolism, depression, Helicobacter infection, GERD anxiety disorder, frequent falls, presents with fall and found to deep laceration to the left frontal part of the head. Patient is having on and off dizziness last 1 week. Patient gets these dizzy spells on and off. Today she was feeling fine. She was at her friend's house. came to pick her up. She was trying to come out to the porch when she was getting down the the steps she lost balance and fell and hit her head. No loss of consciousness. With help she was able to get up. Fall Deep laceration of the left forehead CT head, no acute findings Face CT. Left frontal scalp laceration seen. Chest CT, cervical spine CT, abdomen pelvis CT, lumbar spine CT no acute findings Chest x-ray no acute findings OMFS evaled, s/p Repair Laceration Left Eyebrow/Forehead 04/05. c/w IV Unasyn, Pain control d/w OFMS, ok to dc from their POV, additional 5 d of atb, f/u on Apr 17. PT/OT evaled, recommends rehab. Left wrist swelling: On splint, X-ray no fracture seen. ice compression, elevate LUE. Possible UTI: Will follow cultures. On Unasyn Possible near syncope Chronic on and off dizziness On meclizine as needed, orthovitals neg. ECHO w/ EF of 65-70%, LV wall motion is normal. Med/telemetry, likely zio patch as OP. PT evaled, recommends rehab. prolonged qtc, will continue tele monitoring while inpatient. avoid qt prolonging meds CKD stage III: Creatinine 1.2 around baseline. Will follow labs Hyperlipidemia: On statin Essential tremor: On propranolol Cerda's esophagus: Protonix Epilepsy: On Lamictal Depression, Generalized anxiety disorder: On buspirone and citalopram and Klonopin as needed DVT prophylaxis: SCDs for now Disposition: Med/telemetry while inpatient, EKG in AM, CM to assist w/ dc plan. Full code. Admission and Anticipated Discharge Date Admission Date: April 04, 2025 Subjective Patient was seen and examined at bedside. Patient was sitting up in chair, on room air, NAD, resting comfortably. Patient with complaint of left hand swelling--> x-ray with no acute fracture, elevated Doppler with no DVT. Patient reported she might have slept on her left hand and has been tingling/swollen/pain since morning but it has significantly improved by my bedside exam per patient. Physical Exam Physical Exam: General- not in distress Head- left frontal head w/ dressing c/d/i Eyes- PERRL. ENT- oropharynx clear Neck- supple, no JVD. Lungs- clear to auscultation no wheezing or crackles Heart- regular rhythm; no murmur, no gallop. Abdomen- normal bowel sounds, soft, nontender, no distension Extremities- left wrist in splint. Neuro- alert, oriented PERRL, no facial palsy; no dysarthria; moves extremities Results & Data Results & Data Vital Signs (Past 12 Hours) Vital Signs Temp Pulse Pulse Resp BP Pulse Ox Pulse Ox 04/06/25 12:57 93 04/06/25 12:08 36.8 C 65 18 103/67 96 04/06/25 08:57 36.6 C 78 18 107/66 04/06/25 08:00 62 04/06/25 08:00 O2 Del Method O2 Flow Rate O2 Flow Rate 04/06/25 12:57 2 04/06/25 12:08 Nasal Cannula 2 04/06/25 08:57 04/06/25 08:00 04/06/25 08:00 Nasal Cannula 2
[2025-04-06] MEDS: clonazePAM 0.5 MG TAB PO PRN (19:53)
[2025-04-07 05:31] LABS: Hematocrit (blood only) 32.1 % (37.0-47.0); Hemoglobin 10.3 g/dl (12.0-16.0); Mean Corpuscular Hemoglobin 31.9 pg (25.0-34.0); Mean Corpuscular Volume 99.4 fL (80.0-100.0); Platelet Count 159 K/uL (130-400); RDW Standard Deviation 49.7 fL (36.4-46.3); Red Blood Count 3.23 M/uL (4.20-5.40); White Blood Count 5.03 K/ul (4.8-10.8)
[2025-04-07 05:48] LABS: Anion Gap 4.0 (3-11); Blood Urea Nitrogen 10.0 mg/dl (6-23); Calcium 8.3 mg/dl (8.6-10.3); Carbon Dioxide 26.0 mmol/L (21-32); Chloride 112.0 mmol/L (98-107); Creatinine Clr Calc Pharmacy 54.8 ml/min; Glucose 91.0 mg/dl (70-99(Fasting)); Potassium 4.1 mmol/L (3.5-5.1); Sodium 142.0 mmol/L (136-145)
--- NOTE | 2025-04-07 11:40 | Hospitalist Progress Note ---
Date of Service April 07, 2025 Assessment & Plan (1) Fall: Plan: 79-year-old female with past medical history significant for hyperlipidemia, gastroparesis, Cerda's esophagus, diarrhea, CKD stage III, osteoporosis, epilepsy, chronic migraine, essential tremor, pulmonary embolism, depression, Helicobacter infection, GERD anxiety disorder, frequent falls, presents with fall and found to deep laceration to the left frontal part of the head. Patient is having on and off dizziness last 1 week. Patient gets these dizzy spells on and off. Today she was feeling fine. She was at her friend's house. came to pick her up. She was trying to come out to the porch when she was getting down the the steps she lost balance and fell and hit her head. No loss of consciousness. With help she was able to get up. Fall Deep laceration of the left forehead CT head, no acute findings Face CT. Left frontal scalp laceration seen. Chest CT, cervical spine CT, abdomen pelvis CT, lumbar spine CT no acute findings Chest x-ray no acute findings OMFS evaled, s/p Repair Laceration Left Eyebrow/Forehead 04/05. c/w IV Unasyn, Pain control d/w OFMS 04/06, ok to dc from their POV, additional 5 d of atb, f/u on Apr 17. PT/OT evaled, recommends rehab. At risk for delirium: d/t underlying comorbidities and age factor. has h/o confusion w/ oxycodone use in the past but is ok w/ morphine per family. minimi ze pain meds as able, avoid oxy, delirium precautions. Left wrist swelling: On splint, X-ray no fracture seen. ice compression, elevate LUE. Possible UTI: neg cultures. On Unasyn regardless, see above. Possible near syncope Chronic on and off dizziness On meclizine as needed, orthovitals neg. ECHO w/ EF of 65-70%, LV wall motion is normal. Med/telemetry, likely zio patch as OP. PT evaled, recommends rehab. prolonged qtc, will continue tele monitoring while inpatient. avoid qt prolongi ng meds CKD stage III: Creatinine 1.2 around baseline. Will follow labs Hyperlipidemia: On statin Essential tremor: On propranolol Cerda's esophagus: Protonix Epilepsy: On Lamictal Depression, Generalized anxiety disorder: On buspirone and citalopram and Klonopin as needed DVT prophylaxis: SCDs for now Disposition: Med/telemetry while inpatient, CM to assist w/ dc plan. Zio patch as OP on dc. Full code. Admission and Anticipated Discharge Date Admission Date: April 04, 2025 Subjective Patient was seen and examined at bedside. Patient was sitting up in bed, on room air, NAD, resting comfortably. Pt's dtr and at bedside, both were updated on plan of care. Left hand swelling and pain has gone down significantly. no tenderness on exam and ROM today. Pt reports eating ok Per RN, pt was briefly confused in AM, but AOx 4 at bedside, institute delirium precaution, avoid oxy on her. Physical Exam Physical Exam: General- not in distress Head- left frontal head w/ dressing c/d/i Eyes- PERRL. ENT- oropharynx clear Neck- supple, no JVD. Lungs- clear to auscultation no wheezing or crackles Heart- regular rhythm; no murmur, no gallop. Abdomen- normal bowel sounds, soft, nontender, no distension Extremities- left had swelling improving, non tender, non painful rom. Neuro- alert, oriented PERRL, no facial palsy; no dysarthria; moves extremities Results & Data Results & Data Vital Signs (Past 12 Hours) Vital Signs Temp Pulse Resp BP Pulse Ox O2 Del Method 04/07/25 07:33 36.6 C 22 94 Room Air 04/07/25 03:06 36.5 C 64 14 113/65 93 Room Air 04/06/25 23:53 Room Air
--- NOTE | 2025-04-07 14:48 | Electrocardiogram Report ---
Test Reason : Blood Pressure : */* mmHG Vent. Rate : 64 BPM Atrial Rate : 64 BPM P-R Int : 204 ms QRS Dur : 82 ms QT Int : 438 ms P-R-T Axes : 58 -16 3 degrees QTcB Int : 451 ms Normal sinus rhythm Normal ECG When compared with ECG of 28-Mar-2025 17:05, No significant change was found Confirmed by Shawn Glez ([id number]) on 04/07/2025 2:48:18 PM Referred By: REFERRED SELF Confirmed By: Shawn Glez
--- NOTE | 2025-04-07 14:57 | Electrocardiogram Report ---
Test Reason : Blood Pressure : */* mmHG Vent. Rate : 96 BPM Atrial Rate : 96 BPM P-R Int : 158 ms QRS Dur : 80 ms QT Int : 408 ms P-R-T Axes : 36 -19 -75 degrees QTcB Int : 515 ms Sinus rhythm Nonspecific ST and T wave abnormality Abnormal ECG When compared with ECG of 05-Apr-2025 04:50, (unconfirmed) No significant change Confirmed by Shawn Glez ([id number]) on 04/07/2025 2:56:45 PM Referred By: REFERRED SELF Confirmed By: Shawn Glez
--- NOTE | 2025-04-07 15:04 | Electrocardiogram Report ---
Test Reason : Blood Pressure : */* mmHG Vent. Rate : 58 BPM Atrial Rate : 58 BPM P-R Int : 202 ms QRS Dur : 78 ms QT Int : 446 ms P-R-T Axes : 62 -12 9 degrees QTcB Int : 437 ms Sinus bradycardia Low voltage QRS Borderline ECG When compared with ECG of 06-Apr-2025 05:09, (unconfirmed) No significant change Confirmed by Shawn Glez ([id number]) on 04/07/2025 3:04:20 PM Referred By: REFERRED SELF Confirmed By: Shawn Glez
[2025-04-07] MEDS: FAMOTIDINE 20 MG TAB PO SCH (21:26)
--- NOTE | 2025-04-08 10:41 | Progress Note ---
Date of Service April 08, 2025 Assessment & Plan Admission and Anticipated Discharge Date Admission Date: April 04, 2025 Subjective Post OP note for facial lacerations at 4 days I removed the dressing--no hematoma, wound looks great! The repaired laceration looks great. The tissue is soft and the scar has excellent color match. The wound edges are very flat without hypertrophy. Over all the result is excellent and the patient is very please. Keep the wound cleaned, no need to be covered RTC to see Dr Quick on Apr 17 as planned Results & Data Vital Signs (Past 12 Hours) Vital Signs Temp Pulse Pulse Resp BP Pulse Ox O2 Del Method 04/08/25 08:15 36.9 C 68 20 150/72 H 94 Room Air 04/08/25 05:37 69 04/08/25 02:43 36.6 C 64 20 142/79 H 93 Room Air 04/07/25 23:50 61 131/69 PG Care Time/CCT Total # of Minutes Spent Total Time Spent with Patient: Total time spent is greater than 50% in coordination of care (as documented) at patient's floor/unit and/or counseling patient: Coding Level of Care Code None
[2025-04-08] MEDS: ACETAMINOPHEN 325 MG TAB PO ONE (11:40)
--- NOTE | 2025-04-08 13:58 | Hospitalist Progress Note ---
Date of Service April 08, 2025 Assessment & Plan (1) Fall: Plan: 79-year-old female with past medical history significant for hyperlipidemia, gastroparesis, Cerda's esophagus, diarrhea, CKD stage III, osteoporosis, epilepsy, chronic migraine, essential tremor, pulmonary embolism, depression, Helicobacter infection, GERD anxiety disorder, frequent falls, presents with fall and found to deep laceration to the left frontal part of the head. Patient is having on and off dizziness last 1 week. Patient gets these dizzy spells on and off. Today she was feeling fine. She was at her friend's house. came to pick her up. She was trying to come out to the porch when she was getting down the the steps she lost balance and fell and hit her head. No loss of consciousness. With help she was able to get up. Fall Deep laceration of the left forehead CT head, no acute findings Face CT. Left frontal scalp laceration seen. Chest CT, cervical spine CT, abdomen pelvis CT, lumbar spine CT no acute findings Chest x-ray no acute findings OMFS evaled, s/p Repair Laceration Left Eyebrow/Forehead 04/05. c/w IV Unasyn, Pain control d/w OFMS 04/06, ok to dc from their POV, additional 5 d of atb, f/u on Apr 17. PT/OT evaled, recommends rehab. At risk for delirium: d/t underlying comorbidities and age factor. has h/o confusion w/ oxycodone use in the past but is ok w/ morphine per family. minimi ze pain meds as able, avoid oxy, delirium precautions. Left wrist swelling: On splint, X-ray no fracture seen. ice compression, elevate LUE. Possible UTI: neg cultures. On Unasyn regardless, see above. Possible near syncope Chronic on and off dizziness On meclizine as needed, orthovitals neg. ECHO w/ EF of 65-70%, LV wall motion is normal. Med/telemetry, likely zio patch as OP. PT evaled, recommends rehab. prolonged qtc, will continue tele monitoring while inpatient. avoid qt prolongi ng meds CKD stage III: Creatinine 1.2 around baseline. Will follow labs Hyperlipidemia: On statin Essential tremor: On propranolol Cerda's esophagus: Protonix Epilepsy: On Lamictal Depression, Generalized anxiety disorder: On buspirone and citalopram and Klonopin as needed DVT prophylaxis: SCDs for now Disposition: Med/telemetry while inpatient, CM to assist w/ dc plan. Zio patch as OP on dc. can dc to rehab medically, CM assisting. Full code. Admission and Anticipated Discharge Date Admission Date: April 04, 2025 Subjective Patient was seen and examined at bedside. Patient was sitting up in chair, on room air, NAD, resting comfortably. Left hand swelling and pain has gone down significantly. no tenderness on exam and during ROM. Pt reports eating ok Physical Exam Physical Exam: General- not in distress Head- left frontal head w/ dressing c/d/i Eyes- PERRL. ENT- oropharynx clear Neck- supple, no JVD. Lungs- clear to auscultation no wheezing or crackles Heart- regular rhythm; no murmur, no gallop. Abdomen- normal bowel sounds, soft, nontender, no distension Extremities- left had swelling improving, non tender, non painful rom. Neuro- alert, oriented PERRL, no facial palsy; no dysarthria; moves extremities Results & Data Results & Data Vital Signs (Past 12 Hours) Vital Signs Temp Pulse Pulse Resp BP Pulse Ox O2 Del Method 04/08/25 11:29 36.7 C 61 20 137/73 96 Room Air 04/08/25 08:15 36.9 C 68 20 150/72 H 94 Room Air 04/08/25 05:37 69 04/08/25 02:43 36.6 C 64 20 142/79 H 93 Room Air
[2025-04-08] MEDS: ACETAMINOPHEN 325 MG TAB PO PRN (20:33)
--- NOTE | 2025-04-09 13:45 | Hospitalist Progress Note ---
Date of Service April 09, 2025 Assessment & Plan (1) Fall: Plan: 79-year-old female with past medical history significant for hyperlipidemia, gastroparesis, Cerda's esophagus, diarrhea, CKD stage III, osteoporosis, epilepsy, chronic migraine, essential tremor, pulmonary embolism, depression, Helicobacter infection, GERD anxiety disorder, frequent falls, presents with fall and found to deep laceration to the left frontal part of the head. Patient is having on and off dizziness last 1 week. Patient gets these dizzy spells on and off. Today she was feeling fine. She was at her friend's house. came to pick her up. She was trying to come out to the porch when she was getting down the the steps she lost balance and fell and hit her head. No loss of consciousness. With help she was able to get up. Fall Deep laceration of the left forehead CT head, no acute findings Face CT. Left frontal scalp laceration seen. Chest CT, cervical spine CT, abdomen pelvis CT, lumbar spine CT no acute findings Chest x-ray no acute findings OMFS evaled, s/p Repair Laceration Left Eyebrow/Forehead 04/05. Wound healing appropriately. c/w IV Unasyn, Pain control d/w OFMS 04/06, ok to dc from their POV, additional 5 d of atb, f/u on Apr 17. PT/OT evaled, recommends rehab. At risk for delirium: d/t underlying comorbidities and age factor. has h/o confusion w/ oxycodone use in the past but is ok w/ morphine per family. minimize pain meds as able, avoid oxy, delirium precautions. Left wrist swelling: On splint, X-ray no fracture seen. ice compression, elevate LUE. Possible UTI: neg cultures. On Unasyn regardless, see above. Possible near syncope Chronic on and off dizziness On meclizine as needed, orthovitals neg. ECHO w/ EF of 65-70%, LV wall motion is normal. Med/telemetry, likely zio patch as OP. PT evaled, recommends rehab. prolonged qtc, will continue tele monitoring while inpatient. avoid qt prolonging meds CKD stage III: Creatinine 1.2 around baseline. Will follow labs Hyperlipidemia: On statin Essential tremor: On propranolol Cerda's esophagus: Protonix Epilepsy: On Lamictal Depression, Generalized anxiety disorder: On buspirone and citalopram and Klonopin as needed DVT prophylaxis: SCDs for now Disposition: Med/telemetry while inpatient, CM to assist w/ dc plan. Zio patch as OP on dc. can dc to rehab medically, CM assisting. Full code. Admission and Anticipated Discharge Date Admission Date: April 04, 2025 Subjective Patient was seen and examined at bedside. Patient was sitting up in chair, on room air, NAD, resting comfortably. Left hand swelling and pain has gone down significantly. no tenderness on exam and during ROM. Pt reports eating ok Physical Exam Physical Exam: General- not in distress Head- left frontal head w/ dressing c/d/i Eyes- PERRL. ENT- oropharynx clear Neck- supple, no JVD. Lungs- clear to auscultation no wheezing or crackles Heart- regular rhythm; no murmur, no gallop. Abdomen- normal bowel sounds, soft, nontender, no distension Extremities- left had swelling improving, non tender, non painful rom. Neuro- alert, oriented PERRL, no facial palsy; no dysarthria; moves extremities Results & Data Results & Data Vital Signs (Past 12 Hours) Vital Signs Temp Pulse Pulse Resp BP Pulse Ox O2 Del Method 04/09/25 11:59 36.7 C 66 18 136/80 94 Room Air 04/09/25 08:02 Room Air 04/09/25 07:52 36.9 C 68 16 124/73 95 Room Air 04/09/25 07:37 57 L 04/09/25 03:16 36.6 C 62 16 135/75 94 Room Air
[2025-04-10 11:30] VITALS: RESP 18
--- NOTE | 2025-04-10 14:02 | Hospitalist Progress Note ---
Date of Service April 10, 2025 Assessment & Plan (1) Fall: Plan: 79-year-old female with past medical history significant for hyperlipidemia, gastroparesis, Cerda's esophagus, diarrhea, CKD stage III, osteoporosis, epilepsy, chronic migraine, essential tremor, pulmonary embolism, depression, Helicobacter infection, GERD anxiety disorder, frequent falls, presents with fall and found to deep laceration to the left frontal part of the head. Patient is having on and off dizziness last 1 week. Patient gets these dizzy spells on and off. Today she was feeling fine. She was at her friend's house. came to pick her up. She was trying to come out to the porch when she was getting down the the steps she lost balance and fell and hit her head. No loss of consciousness. With help she was able to get up. Fall Deep laceration of the left forehead CT head, no acute findings Face CT. Left frontal scalp laceration seen. Chest CT, cervical spine CT, abdomen pelvis CT, lumbar spine CT no acute findings Chest x-ray no acute findings OMFS evaled, s/p Repair Laceration Left Eyebrow/Forehead 04/05. Wound healing appropriately. c/w IV Unasyn, Pain control d/w OFMS 04/06, ok to dc from their POV, additional 5 d of atb, f/u on Apr 17. PT/OT evaled, recommends rehab. At risk for delirium: d/t underlying comorbidities and age factor. has h/o confusion w/ oxycodone use in the past but is ok w/ morphine per family. minimize pain meds as able, avoid oxy, delirium precautions. Left wrist swelling: On splint, X-ray no fracture seen. ice compression, elevate LUE. Possible UTI: neg cultures. On Unasyn regardless, see above. Possible near syncope Chronic on and off dizziness On meclizine as needed, orthovitals neg. ECHO w/ EF of 65-70%, LV wall motion is normal. Med/telemetry, likely zio patch as OP. PT evaled, recommends rehab. prolonged qtc, will continue tele monitoring while inpatient. avoid qt prolonging meds CKD stage III: Creatinine 1.2 around baseline. Will follow labs Hyperlipidemia: On statin Essential tremor: On propranolol Cerda's esophagus: Protonix Epilepsy: On Lamictal Depression, Generalized anxiety disorder: On buspirone and citalopram and Klonopin as needed DVT prophylaxis: SCDs for now Disposition: Med/telemetry while inpatient, CM to assist w/ dc plan. Zio patch as OP on dc. can dc to rehab medically, CM assisting. Full code. Admission and Anticipated Discharge Date Admission Date: April 04, 2025 Subjective Patient was seen and examined at bedside. Patient was sitting up in chair, on room air, NAD, resting comfortably. Left hand improving. no tenderness on exam and during ROM. Pt reports eating ok Physical Exam Physical Exam: General- not in distress Head- left frontal head healing wound. Eyes- PERRL. ENT- oropharynx clear Neck- supple, no JVD. Lungs- clear to auscultation no wheezing or crackles Heart- regular rhythm; no murmur, no gallop. Abdomen- normal bowel sounds, soft, nontender, no distension Extremities- left had swelling improving, non tender, non painful rom. Neuro- alert, oriented PERRL, no facial palsy; no dysarthria; moves extremities Results & Data Results & Data Vital Signs (Past 12 Hours) Vital Signs Temp Pulse Pulse Resp BP BP Pulse Ox 04/10/25 11:29 36.7 C 55 L 18 134/77 97 04/10/25 08:14 37.3 C 59 L 17 138/74 95 04/10/25 07:26 55 L 04/10/25 02:43 36.5 C 66 16 99/62 L 95 O2 Del Method 04/10/25 11:29 Room Air 04/10/25 08:14 Room Air 04/10/25 07:26 04/10/25 02:43 Room Air
[2025-04-10 15:58] VITALS: BP 124/78; PULSE 85; TEMP 98.2; O2SAT 96
--- NOTE | 2025-04-10 17:15 | Discharge Summary ---
Date of Service April 10, 2025 Admission HPI Per Admitting Provider 79-year-old female with past medical history significant for hyperlipidemia, gastroparesis, Cerda's esophagus, history of diarrhea, CKD stage III, osteoporosis, epilepsy, chronic migraine, essential tremor, history of pulmonary embolism, depression, history of Helicobacter infection, GERD anxiety disorder, history of frequent falls, presents with fall and found to deep laceration to the left frontal part of the head. Patient is having on and off dizziness last 1 week. Patient gets these dizzy spells on and off. Today she was feeling fine. She was at her friend's house. came to pick her up. She was trying to come out of the porch, when she was getting down the the steps she lost balance and fell and hit her head. No loss of consciousness. With help she was able to get up. Currently headache improved.. Has some nausea. Says has some abdominal discomfort in epigastric region. Denies any chest pain currently. She gets on and off chest pains. No shortness of breath currently. No fevers. No cough. No runny nose or sore throat. No earaches. Appetite is okay. Eating and drinking okay. No diarrhea or constipation. Micturating okay. Hemodynamics are okay. Past medical history. As mentioned above Past surgical history. Breast lesion excision. Cholecystectomy. Colonoscopy. Cystoscopy. EGD. EGD with biopsy. Excision of subcutaneous cyst. Fusion of the upper back. Cataracts. Sigmoidoscopy. Total hysterectomy. Social history. . No smoking. No alcohol use. No drug use. Family history. Brother had cancer. Mother had lung cancer. Sister had breast cancer. Sister had liver cancer Sister had lung cancer.. Brother had hepatitis B. Sister had hypertrophic cardiomyopathy. Father had alcoholism and cirrhosis. Admission Exam Per Admitting Provider General- not in distress Head- deep laceration seen on left frontal head Eyes- PERRL. ENT- oropharynx clear Neck- supple, no JVD. Lungs- clear to auscultation no wheezing or crackles Heart- regular rhythm; no murmur, no gallop. Abdomen- normal bowel sounds, soft, nontender, no distension Extremities- left wrist in splint. Neuro- alert, oriented PERRL, no facial palsy; no dysarthria; moves extremities Principal Diagnosis deep facial laceration Discharge Exam General- not in distress Head- left frontal head well healing wound. Eyes- PERRL. ENT- oropharynx clear Neck- supple, no JVD. Lungs- clear to auscultation no wheezing or crackles Heart- regular rhythm; no murmur, no gallop. Abdomen- normal bowel sounds, soft, nontender, no distension Extremities- left had swelling improving, non tender, non painful rom. Neuro- alert, oriented PERRL, no facial palsy; no dysarthria; moves extremities Discharge Data Allergies Allergy/AdvReac Type Severity Reaction Status Date / Time phenazopyridine Allergy Intermediate Pruritis Verified 04/04/25 19:30 Sulfa (Sulfonamide Allergy Intermediate Hives Verified 04/04/25 19:30 Antibiotics) omeprazole [From Prilosec] AdvReac Severe Seizure Verified 04/04/25 19:30 domperidone AdvReac Intermediate Balance Verified 04/04/25 19:30 issues metoclopramide AdvReac Intermediate Balance Verified 04/04/25 19:30 issues tramadol AdvReac Intermediate Diarrhea Verified 04/04/25 19:30 oxycodone AdvReac Confusion Verified 04/07/25 18:13 Consultations 04/04/25 20:45 ED Decision to Admit Stat 04/05/25 08:00 Consult Oromaxillofacial Surgery Routine Procedures Performed Operation Date: 04/05/25 07:00 Actual Procedures p Repair Laceration Left Eyebrow/Forehead(Left) - Oli Quick, BRANDON Ordered Studies 04/04/25 17:42 CT lumbar spine w con Stat 04/04/25 17:43 CT abd pelvis IV con only Stat CT cervical spine wo con Stat CT chest diagnostic w con Stat CT facial bones wo con Stat CT head/brain wo con Stat CT thoracic spine w con Stat 04/06/25 08:05 US venous doppler UE LT Routine Hospital Course (1) Fall: 79-year-old female with past medical history significant for hyperlipidemia, gastroparesis, Cerda's esophagus, diarrhea, CKD stage III, osteoporosis, epilepsy, chronic migraine, essential tremor, pulmonary embolism, depression, Helicobacter infection, GERD anxiety disorder, frequent falls, presents with fall and found to deep laceration to the left frontal part of the head. Patient is having on and off dizziness last 1 week. Patient gets these dizzy spells on and off. Today she was feeling fine. She was at her friend's house. came to pick her up. She was trying to come out to the porch when she was getting down the the steps she lost balance and fell and hit her head. No loss of consciousness. With help she was able to get up. Fall Deep laceration of the left forehead CT head, no acute findings Face CT. Left frontal scalp laceration seen. Chest CT, cervical spine CT, abdomen pelvis CT, lumbar spine CT no acute findings Chest x-ray no acute findings OMFS evaled, s/p Repair Laceration Left Eyebrow/Forehead 04/05. Wound healing appropriately. c/w IV Unasyn, Pain control d/w OFMS 04/06, ok to dc from their POV, additional 5 d of atb, f/u on Apr 17. PT/OT mari, recommends rehab. Pt and her family would want to take her home today, don't want to wait for rehab as it is taking long time Counselled and discharged, advised to have HH set up from own PCP office if our CM is not able to set it up. At risk for delirium: d/t underlying comorbidities and age factor. has h/o confusion w/ oxycodone use in the past but is ok w/ morphine per family. minimize pain meds as able, avoid oxy, delirium precautions. Left wrist swelling: On splint, X-ray no fracture seen. ice compression, elevate LUE. Possible UTI: neg cultures. On Unasyn regardless, see above. Possible near syncope Chronic on and off dizziness On meclizine as needed, orthovitals neg. ECHO w/ EF of 65-70%, LV wall motion is normal. Med/telemetry, likely zio patch as OP. PT mari, recommends rehab. prolonged qtc, will continue tele monitoring while inpatient. avoid qt prolonging meds CKD stage III: Creatinine 1.2 around baseline. Will follow labs Hyperlipidemia: On statin Essential tremor: On propranolol Cerda's esophagus: Protonix Epilepsy: On Lamictal Depression, Generalized anxiety disorder: On buspirone and citalopram and Klonopin as needed DVT prophylaxis: SCDs for now Disposition: Med/telemetry while inpatient, CM to assist w/ dc plan. Zio patch as OP on dc. can dc to rehab medically, CM assisting. Full code. Patient is being discharged to home with home health with following instructions at the point of discharge: Follow-up with your primary care physician within a week time and likely you will need labs CBC/CMP/magnesium/phosphorus. Follow-up with Dr. Quick on April 17. You will be discharged on antibiotic to complete the course. Ideally would like you to go to a fci but due to it taking a long time you have decided to go home and hence recommend that you establish with physical therapy at home. Continue to elevate your left hand and use [id number] Tylenol for mild to moderate pain. You will possibly benefit from Zio patch monitoring as an outpatient, coordinate with your PCP office to set up the test. Take your medications as prescribed. Please make sure that you are able to get your medications today by calling your pharmacy before you leave the hospital so that your treatment continuity is not broken. Home Health Attestation I certify that this patient is under my care and that I, or a physicians orthopedic physician assistant working with me, had a face to-face encounter that meets the home health [id number] encounter requirements with this patient. The encounter with the patient was in whole, or in part, for the following medical condition, which is the primary reason for home health care (list medical condition): I certify that, based on my findings, the following services are medically necessary home health services: My clinical findings support the need for the above services because: Further, I certify that my clinical findings support that this patient is homebound (i.e. absences from home require considerable and taxing effort and are for medical reasons or pentec[employer] services or infrequently or of short duration when for other reasons) because: Certification for Home Health Services: Based on the above findings, I certify that this patient is confined to the home and needs intermittent long-term care, physical therapy and/or speech therapy or continues to need occupational therapy. The patient is under my care, and I have initiated the establishment of the plan of care. This patient will be followed by a physician who will periodically review the plan of care. Total Time Total Time Spent Total Time Spent (In Minutes): 50 Discharge Plan Discharge Items Patient Disposition: Home - Home Health Services Reason For Visit: FALL, DIZZINESS, FACIAL LACERATION Discharge Diagnosis: deep facial laceration Condition on Discharge: Good Activity: Resume your previous activity Activity Comment: as tolerated Lifting: Gradually increase as tolerated Bathing: No limitations and Keep incision dry Exercise/Sports: Gradually increase as tolerated Driving/Machine Use: Resume 1 day after discharge Weightbearing: Full weightbearing Weightbearing Comment: as tolerated Non-emergency contact: Surgeon Call non-emergency contact if: your pain is unusual for you, your temperature is above 101.5, your wound has increased redness, your wound has increased drainage and your wound pain has increased Follow-up/Referrals: Adalberto Huynh MD [Primary Care Provider] - (Date & Time 04/12/2025 11:00 AM Provider: Adalberto Huynh MD [facility] ) Oli Quick DMD [Physician] - Diet: Regular Addtl Attending Provider Instructions: ADDITIONAL ACTIVITY RECOMMENDATIONS: * keep the pressure dressing on your eyebrow area for at least 3-5 days--keep the dressing dry * it is very important to keep well hydrated, this prevents fever SPECIAL CARE INSTRUCTIONS: *It is not uncommon that between day 2-4 that your swelling will be at its worst this is very normal, do not be alarmed. * Keep ice on the side of your face for the next 24 to 36 hours. This will help keep the swelling down. Once the dressing comes off please keep the wound clean, wash it and pat dry * You may experience some discomfort for a few days. If pain or swelling increases, Call Dr Quick [phone] * Return to the office for a follow up check up on: ThursdayAPRIL 17 at 1:15 * office address--[facility] [address]. phone # [phone] Addtl [employer] Engineer Provider Instructions: Follow-up with your primary care physician within a week time and likely you w ill need labs CBC/CMP/magnesium/phosphorus. Follow-up with Dr. Quick on April 17. You will be discharged on antibiotic to complete the course. Ideally would like you to go to a fci but due to it taking a long time you have decided to go home and hence recommend that you establish with physical therapy at home. Continue to elevate your left hand and use [id number] Tylenol for mild to moderate pain. You will possibly benefit from Zio patch monitoring as an outpatient, coordinate with your PCP office to set up the test. Take your medications as prescribed. Please make sure that you are able to get your medications today by calling your pharmacy before you leave the hospital so that your treatment continuity is not broken. Pending Studies at Discharge: No Stand-Alone Forms: [facility], Smoking Cessation Medications and DC Order Prescriptions: New cephalexin 500 mg capsule 500 mg PO TID 2 Days Qty: 6 0RF Continued lamotrigine 200 mg tablet 400 mg PO BID citalopram 20 mg Tablet 20 mg PO QAM rosuvastatin 5 mg tablet 5 mg PO QAM ascorbic acid (vitamin C) [Vitamin C] 500 mg Tablet 500 mg PO QAM clonazepam 0.5 mg tablet 0.5 mg PO BID PRN (Reason: Anxiety) propranolol 10 mg tablet 10 mg PO TID Rx Instructions: take 1 tablet in the morning,at noon and before bedtime meclizine 25 mg tablet 25 mg PO TID PRN (Reason: Dizziness) buspirone 10 mg tablet 10 mg PO BID pantoprazole 20 mg tablet,delayed release (DR/EC) 40 mg PO QAM vitamin B complex Capsule 1 cap PO QAM aspirin [Aspirin Childrens] 81 mg Tablet,Chewable 81 mg PO QAM cholecalciferol (vitamin D3) [Vitamin D3] 25 mcg (1,000 unit) Tablet 25 mcg PO QAM Discharge Orders: Discharge Order (Routine); Ordered 04/10/25 Ordered By: Rene Rubio/Other Patient Handouts: Suture Care Admission Data Admit Date/Time: 04/04/25 23:59 Attending Provider: Rene Ridley Admit Provider: David Wahl Primary Care Provider: Adalberto Huynh Other Providers: David Wahl; Oli Quick [facility]
--- NOTE | 2025-04-12 13:33 | Coding Query ---
CODING QUERY To promote full compliance with coding requirements relating to patient care, provider participation is requested in all cases of supervisor electronics processing uncertainty. Please assist us with the question(s) below: In the record, it states that the patient has an UTI. Please clarify below the cause of the UTI if applicable. Thank you. ( ) The chronic dixon was the cause of the UTI. ( ) Other urinary cath/device was the cause of the UTI. ( ) UTI, unspecified cause. ( ) Self-catheterization was the cause of the UTI. ( ) Other (Specify): ( x ) Ruled Out Principal Diagnosis: "that condition established after study, to be chiefly responsible for occasioning the admission of the patient to the hospital for care." Co-Existing Principal Diagnosis: "when two or more diagnoses equally meet the criteria for principal diagnosis as determined by the circumstances of admission, diagnostic work up, and/or therapy provided, and the Alphabetic Index, Tabular List, or another coding guideline does not provide sequencing direction, any one of the diagnoses may be sequenced first." "When the physician has documented what appears to be a current diagnosis in the body of the record, but has not included the diagnosis in the final diagnostic statement, the physician should be asked whether the diagnosis should be added." (Source Coding [facility] 2 QTR90. p3-4) LORENA
--- NOTE | 2025-04-18 13:58 | Operative Report ---
PG Post Operative Report Pre & Post Diagnosis Operation Date: 04/05/25 07:00 Pre-Op Diagnosis: (1) Complex laceration of face: Post-Op Diagnosis: (1) Complex laceration of face: I identified the patient and participated in the time-out.: Yes Procedure Operation Date: 04/05/25 07:00 Actual Procedures p Repair Laceration Left Eyebrow/Forehead(Left) - Oli Quick DMD Surgeon Oli Quick, BRANDON Fitness Services Manager none Estimated Blood Loss 4 Findings Consistent with Post-Op Diagnosis Specimens none Drains none Anesthesia Type General Complications very deep irregular supraorbital left side complex laceration Disposition Accompanied Patient To Recovery: Yes Indications complex laceration deep to skull Description of Procedure Pre-op: Deep, complex 5 cm laceration involving the supra orbital and forehead area deep to the skull bony Post -op: Same CPT 55879 ICD 10 S01.8XA Once cleared for surgery general anesthesia was achieved, the eyes were protected by the anesthesia dept criteria.. A time out was take for patient ID, antibiotics, equipment and position verification once all agreed the procedure began. Local anesthesia was given into each area using Marcaine with a vasoconstrictor ( 1.8 ml per site). A throat pack was placed after the oral cavity was irrigated with saline. Once a surgical level of anesthesia was obtained and the local anesthesia was given time for the blocks the surgery was started. I turned my attention to the upper left 5 cm complex laceration Oral/Facial laceration repair: CPT 70023 ICD 10 S01.8XA The repair of a large, deep, complex 5 cm laceration involving the supra orbital and forehead area deep to the skull bony Extensive deep degloving lacerations of the supraorbital rim area Generalized facial Abrasions I reprepped the laceration and irrigated with an antibiotic solution then turned my attention to the laceration. The laceration was approximately 5 cm long. It was very irregular and deep the muscle was exposed as well as the bone. I was able to palpate the bone and no fracture was noted this was confirmed by the CT scan. I used an electrocautery instrument and cauterized any bleeders. The wound was irrigated and scrubbed. I then inspected the bone and could find no displacement there was excellent plate stability. To close the laceration I now started using 4-0 Vicryl suture to line up the deep muscles and periosteum, subcutaneous sutures were positioned with a 5-0 Vicryl and then finally the skin was closed with a combination of 6 and 5-0 nylon suture. A very nice cosmetic closure of this irregular laceration was achieved. This was an complex closure of a 5 cm laceration deep to the supraorbital bone. I pressure dressing was placed. I inspected the sites to insure all bleeding was controlled. All instrument and sponge count was correct. The patient was allowed to awake from the anesthesia. Once full awake the anesthesia tube was removed and the patient was taken to the recovery room with all vital sign stable. The patient tolerated the surgery very well. I will follow the patient in my office, Rx and instructions will be given upon discharge. I attest to the content of the Intraoperative Record and any orders documented therein. Any exceptions are noted below.
== END 2025-04-10 17:44 | disposition home health service (06) ==
LOC: ED 16:49 → 4W 23:59 → SUATTDRO 23:59 → INTOOBSV 23:59 → 4W 04-05 00:56 → 2N 04-07 21:32